=== PATIENT | male | born 1940 | race Caucasian/White ===

== ENCOUNTER 2017-01-22 16:33 | Emergency (ER) | payer MEDICARE, BC ==
[~2017-01-22] VITALS: Ht 185.4 cm; Wt 72.7 kg
[~2017-01-22 16:33] MED LIST: ATEN-51 PO; ESCI10TA48 PO; HYDR-3498 PO; LORA0.5T PO
[2017-01-22 17:00] VITALS: Ht 185.4 cm; Wt 72.7 kg
--- NOTE | 2017-01-22 17:19 | PSY ---
Date/Time of Note Date/Time of Note DATE: 01/22/17 TIME: 20:14 Psychiatric Subjective Eval Consent Pt consented to telemedicine: Yes Subjective Evaluation Patient location: emergency History of present illness 76 yo male with a ho anxiety and depression, brought in s/p overdose attempt on xanax this morning. He admits to depression and anxiety as well as what appears to be withdrawal sxs from either lorazepam or opioids (he describes as the "shakes" in the morning) which prompted him to try to kill himself given the discomfort he was in. Denies psychosis or reji. Does admit to trying to kill himself this morning. Past Psych Hx: pt was vague but appears to receive outpatient treatment for anxiety and depression Pt denies a substance hx PMhx: as in medical note, htn All: no known MSE: On MSE, old appearing male, substantial PMR (possibly consistentw ith age) , slow speech, seems in some distress, organized, no delusions, + si, no hi no avh Family History as above Medical history Problems Medical Problems: (1) Anxiety Status: Acute (2) Back pain Status: Acute (3) Intractable back pain Status: Acute (4) Sciatica Status: Acute Allergies: Coded Allergies: No Known Allergy (Unverified , 05/08/15) Social History Marital status: single Assessment and Plan Assessment/Diagnosis [place] I: MDD, severe Recommendation/Plan Medication Management Pt is a 76yo male with depression s/p overdose attempt to kill self. Occurring in context of what appears to be bzd and/or opioid withdrawal. -5150 inpatient admission -continue lexapro 10mg -continue current dose of ativan. HE states he is on 0.5mg in sariah morning only. In general, bzd are not recommended for elderly people due to risk for delirium , he should eventually be tapered off. Benzodiazepine w/d precautions with prn of ativan 0.5mg for SBP > 140, DBP > 90, or HR > 100 -also continue current dose of opioid medication. Pt should also eventually be tapered off of this 5150 Recommendation: Place SONY Lay Jan 22, 2017 17:19
[2017-01-22 17:49] LABS: ADD SCAN DIFF NO
[2017-01-22 17:52] LABS: BASOPHILS % 0.6 % (0.0-2.0); EOSINOPHILS # 0.2 10^3/ul (0.0-0.5); EOSINOPHILS % 5.1 % (0.0-7.0); HEMATOCRIT 38.8 % (42.0-52.0); HEMOGLOBIN 13.7 g/dl (14.0-18.0); LYMPHOCYTES # 1.4 10^3/ul (0.8-2.9); LYMPHOCYTES % 29.8 % (15.0-51.0); MEAN CORPUSCULAR HGB CONC 35.3 g/dl (32.0-37.0); MEAN CORPUSCULAR VOLUME 90.7 fl (82.0-101.0); MEAN PLATELET VOLUME 9.7 fl (7.4-10.4); MONOCYTE # 0.6 10^3/ul (0.3-0.9); MONOCYTES % 12.7 % (0.0-11.0); NEUTROPHIL # 2.4 10^3/ul (1.6-7.5); NEUTROPHILS % 51.4 % (39.0-77.0); PLATELET COUNT 263 10^3/UL (140-415); RED BLOOD COUNT 4.28 10^6/ul (4.70-6.10); RED CELL DISTRIBUTION WIDTH 12.2 % (11.5-14.5); WHITE BLOOD COUNT 4.7 10^3/ul (4.8-10.8)
[2017-01-22 17:58] LABS: ADD UMIC NO; URINE BILIRUBIN (Dip) NEGATIVE (NEGATIVE); URINE BLOOD (Dip) NEGATIVE (NEGATIVE); URINE COLOR LT. YELLOW (YELLOW); URINE GLUCOSE (Dip) NEGATIVE (NEGATIVE); URINE KETONES (Dip) NEGATIVE (NEGATIVE); URINE LEUKOCYTE ESTERASE (Dip) NEGATIVE (NEGATIVE); URINE NITRITE (Dip) NEGATIVE (NEGATIVE); URINE TOTAL PROTEIN (Dip) NEGATIVE (NEGATIVE); URINE UROBILINOGEN (Dip) 0.2 E.U./dL (0.1-1.0)
[2017-01-22 18:03] LABS: ALBUMIN 3.8 g/dl (3.3-4.9); CHLORIDE 102 mmol/L (97-110); SODIUM 138 mmol/L (135-144)
[2017-01-22 18:04] LABS: POTASSIUM 3.8 mmol/L (3.5-5.1)
[2017-01-22 18:06] LABS: ALANINE AMINOTRANSFERASE 26 IU/L (13-69); ALBUMIN/GLOBULIN RATIO 1.18; ALKALINE PHOSPHATASE 60 IU/L (42-121); ANION GAP 15 (8-16); ASPARTATE AMINO TRANSFERASE 22 IU/L (15-46); BILIRUBIN,INDIRECT 0.7 mg/dl (0-1.1); BILIRUBIN,TOTAL 0.7 mg/dl (0.2-1.3); BLOOD UREA NITROGEN 18 mg/dl (7-20); CALCIUM 9.7 mg/dl (8.4-10.2); CARBON DIOXIDE 25 mmol/L (21-31); CREATININE 1.57 mg/dl (0.61-1.24); GLUCOSE 92 mg/dl (70-220); SALICYLATE 1.5 mg/dl (5.0-30.0)
[2017-01-22 18:07] LABS: ACETAMINOPHEN < 10.0 ug/ml (10.0-30.0); ETHANOL < 10.0 mg/dl
[2017-01-22 18:10] LABS: BARBITURATES NEGATIVE (NEGATIVE); BENZODIAZEPINES POSITIVE (NEGATIVE)
[2017-01-22 18:11] LABS: CANNABINOIDS NEGATIVE (NEGATIVE); COCAINE NEGATIVE (NEGATIVE); OPIATES NEGATIVE (NEGATIVE)
--- NOTE | 2017-01-22 19:10 | ERA ---
ER Documentation Chief Complaint Date/Time DATE: 01/22/17 TIME: 19:07 Chief Complaint Suicide attempt this morning, took Xanax HPI Patient is a 76-year-old male with anxiety and hypertension who presents after an intentional overdose. The patient says that he took a handful of Xanax today at 6 AM. He said that he also took 2 tablets of Excedrin. This happened at 6 AM. He said that he is having suicidal thoughts and that this was a suicide attempt. He says "I wanted to end it all". He called his sister and told her what he did and the sister called 911 said that he will be transported to the hospital. He denies homicidal ideation. He feels like a burden to his family. ROS All systems reviewed and are negative except as per history of present illness. Medications Home Meds Active Scripts Hydrocodone Bit/Acetaminophen (Anexsia 5-325 Mg Tablet) 1 Tab Tablet, 1 TAB PO Q4H Y for mild pain, #30 TAB Prov:KYLIE COBURN 04/12/16 Reported Medications Atenolol* (Atenolol*) 25 Mg Tablet, 25 MG PO DAILY, #30 TAB 04/08/16 Escitalopram Oxalate* (Escitalopram Oxalate*) 10 Mg Tablet, 10 MG PO DAILY, #30 TAB 04/08/16 Lorazepam* (Lorazepam*) 0.5 Mg Tablet, 0.5 MG PO Q6, TAB 04/08/16 Allergies Allergies: Coded Allergies: No Known Allergy (Unverified , 05/08/15) PMhx/Soc History of Surgery: No Anesthesia Reaction: No Hx Neurological Disorder: No Hx Respiratory Disorders: No Hx Cardiac Disorders: Yes (HTN,HYPERLIPIDEMIA) Hx Psychiatric Problems: Yes (ANXIETY) Hx Miscellaneous Medical Probl: Yes (HTN, Anxiety) Hx Alcohol Use: Yes (OCCASSIONAL) Hx Substance Use: Yes (xanax) Hx Tobacco Use: No Smoking Status: Never smoker FmHx Family History: No diabetes Physical Exam Vitals Vital Signs Date Time Temp Pulse Resp B/P Pulse Ox O2 Delivery O2 Flow Rate FiO2 01/22/17 18:46 55 16 111/60 98 Room Air 01/22/17 17:00 76 16 136/78 100 Physical Exam Const: No acute distress Head: Atraumatic Eyes: Normal Conjunctiva ENT: Normal External Ears, Nose and Mouth. Neck: Full range of motion..~ No meningismus. Resp: Clear to auscultation bilaterally Cardio: Regular rate and rhythm, no murmurs Abd: Soft, non tender, non distended. Normal bowel sounds Skin: No petechiae or rashes Back: No midline or flank tenderness Ext: No cyanosis, or edema Neur: Awake and alert Psych: Depressed affect and positive suicide attempt Result Diagram: 01/22/17 1700 01/22/17 170 Results 24 hrs Laboratory Tests Test 01/22/17 17:00 White Blood Count 4.710^3/ul Red Blood Count 4.2810^6/ul Hemoglobin 13.7g/dl Hematocrit 38.8% Mean Corpuscular Volume 90.7fl Mean Corpuscular Hemoglobin 32.0pg Mean Corpuscular Hemoglobin Concent 35.3g/dl Red Cell Distribution Width 12.2% Platelet Count 40352^3/UL Mean Platelet Volume 9.7fl Neutrophils % 51.4% Lymphocytes % 29.8% Monocytes % 12.7% Eosinophils % 5.1% Basophils % 0.6% Nucleated Red Blood Cells % 0.0/100WBC Neutrophils # 2.410^3/ul Lymphocytes # 1.410^3/ul Monocytes # 0.610^3/ul Eosinophils # 0.210^3/ul Basophils # 0.010^3/ul Nucleated Red Blood Cells # 0.010^3/ul Urine Color LT. YELLOW Urine Clarity CLEAR Urine pH 5.0 Urine Specific [place] 1.020 Urine Ketones NEGATIVE Urine Nitrite NEGATIVE Urine Bilirubin NEGATIVE Urine Urobilinogen 0.2 E.U./dL Urine Leukocyte Esterase NEGATIVE Urine Hemoglobin NEGATIVE Urine Glucose NEGATIVE% Urine Total Protein NEGATIVE Sodium Level 138mmol/L Potassium Level 3.8mmol/L Chloride Level 102mmol/L Carbon Dioxide Level 25mmol/L Anion Gap 15 Blood Urea Nitrogen 18mg/dl Creatinine 1.57mg/dl Glucose Level 92mg/dl Calcium Level 9.7mg/dl Total Bilirubin 0.7mg/dl Direct Bilirubin 0.00mg/dl Indirect Bilirubin 0.7mg/dl Aspartate Amino Transf (AST/SGOT) 22IU/L Alanine Aminotransferase (ALT/SGPT) 26IU/L Alkaline Phosphatase 60IU/L Total Protein 7.0g/dl Albumin 3.8g/dl Globulin 3.20g/dl Albumin/Globulin Ratio 1.18 Salicylates Level 1.5mg/dl Urine Opiates Screen NEGATIVE Acetaminophen Level < 10.0ug/ml Urine Barbiturates NEGATIVE Urine Amphetamines Screen NEGATIVE Urine Benzodiazepines Screen POSITIVE Urine Cocaine Screen NEGATIVE Urine Cannabinoids NEGATIVE Ethyl Alcohol Level < 10.0mg/dl Current Medications Medications (Trade) Dose Ordered Sig/Sp Route PRN Reason Start Time Stop Time Status Last Admin Dose Admin Escitalopram Oxalate (Lexapro) 10 mg DAILY PO 01/22/17 19:00 Procedures/MDM EKG read by me: Rate/Rhythm: Sinus bradycardia rate of 55 Intervals: Normal Impression: Sinus bradycardia without ischemia Patient is a 76-year-old male who presents after a suicide attempt with Xanax and Excedrin. He is protecting his own airway and his salicylate level is low. At this point he is medically clear for psychiatric admission. He had a psychiatry evaluation who did recommend a 5150 hold. The patient will need transfer to a psychiatric facility and we are attempting to find placement at this time. The patient will be given Lexapro 10 mg daily for his depression as recommended by psychiatry. Departure Diagnosis: Primary Impression: Suicide threat or attempt Additional Impressions: Anemia Qualified Code: D64.9 - Anemia, unspecified type Overdose Qualified Code: T50.902A - Overdose, intentional self-harm, initial encounter Condition: CHUCK Cole MD Jan 22, 2017 19:10
[2017-01-22] MEDS: ESCITALOPRAM 10 MG TAB PO SCH (19:41)
[2017-01-23] MEDS: ESCITALOPRAM 10 MG TAB PO SCH (08:56)
[2017-01-23 15:01] VITALS: BP 135/78; PULSE 72; RESP 16; TEMP 98.4
== END 2017-01-23 15:03 ==
LOC: E/R 16:33
DX: T42.4X2A Poisoning by benzodiazepines, intentional self-harm, initial encounter (principal); D64.9 Anemia, unspecified; I10 Essential (primary) hypertension
CPT/HCPCS: 80053; 80306; 80307; 81003; 85025; 93005

== ENCOUNTER → 2017-07-26 | Outpatient (CLI) | payer MEDICARE, BC ==
--- NOTE | 2017-07-26 15:13 | RADRPT ---
PROCEDURE: US bilateral lower extremity arteries. CLINICAL INDICATION: Bilateral leg pain. Claudication that interferes significantly with the holly ent's lifestyle. TECHNIQUE: Multiple longitudinal and transverse images of the bilateral lower extremity arteries w ere obtained with egan scale, pulsed Doppler, and color Doppler imaging. COMPARISON: No prior studies are available for comparison. FINDINGS: Right SCHOOL MANAGER:93 cm/sec PSFA:83 cm/sec MSFA:88 cm/sec DSFA:90 cm/sec POP:55 cm/sec RESTORATIVE CARE TECHNICIAN:58 cm/sec DPA:48 cm/sec Left SCHOOL MANAGER:106 cm/sec PSFA:106 cm/sec MSFA:91 cm/sec DSFA:92 cm/sec POP:70 cm/sec RESTORATIVE CARE TECHNICIAN:56 cm/sec DPA:22 cm/sec The right ankle-brachial index is 1.3 and the left ankle-brachial index is 1.3. There is normal triphasic flow throughout bilaterally. Mild plaque is present in the arterial system bilaterally. There is no significant stenosis or occlusion. IMPRESSION: 1. Mild plaque formation without evidence for hemodynamically significant stenosis or occlusion. RPTAT: QQ .Willy Hernandez MD, MD Date Time Electronically viewed and signed by .Willy Hernandez MD, MD on 07/26/2017 15:13 .R/
== END | disposition home or self-care (01) ==
LOC: VAS 10:57
PROVIDERS: ATTEND Internal Medicine
DX: R20.0 Anesthesia of skin (principal); I73.9 Peripheral vascular disease, unspecified
CPT/HCPCS: 93922

== ENCOUNTER 2018-04-23 10:04 | Emergency (ER) | END 2018-04-23 11:09 | disposition home or self-care (01) ==

== ENCOUNTER 2018-11-09 10:14 | Inpatient (IN) | payer MEDICARE, BC ==
[~2018-11-09] VITALS: Ht 180.3 cm; Wt 78.0 kg
[~2018-11-09 10:14] MED LIST changes: +ESCI20TA PO; +LORA-441 PO; +TRA100 PO
[2018-11-09] MEDS ORDERED: SOD CHLORIDE 0.9% 1,000 ML IV STA ×2 (10:33→13:16)
[2018-11-09 10:49] VITALS: Ht 180.3 cm; Wt 78.0 kg
[2018-11-09] MEDS ORDERED: ACETAMINOPHEN 325 MG TAB PO ONE (11:30)
[2018-11-09] MEDS ORDERED: ACETAMINOPHEN 325 MG TAB PO PRN (13:30)
[2018-11-09] MEDS ORDERED: ONDANSETRON 4 MG INJ IV PRN ×2 (13:30→19:30)
--- NOTE | 2018-11-09 13:36 | ERD ---
ER Documentation Chief Complaint Chief Complaint GI bleeding couldnt get out of the bathroom blood in stool since 2am HPI This is a very pleasant 78-year-old male with a past medical history of anxiety and depression. The patient lives alone and is able to attend to his activities of daily living. He has a neighbor who checks on him on a regular basis. The neighbor went to his home this morning and noticed that the patient was on the floor. The patient was alert awake and oriented. He stated he had a brief transient loss of consciousness this morning when he got up to go to the bathroom around 2 AM. This was roughly 10 hours prior to arrival. The patient stated he does not know how long he was unconscious for. When he awoke he stated felt very lightheaded and dizzy and too weak to get up. EMS stated that the patient had a significant amount of melanotic stool surrounding the patient. He denies any hemoptysis or hematemesis. He denies a headache. He denies any suicidal homicidal thoughts or ideations. He has no chest pain or pressure. He has no shortness of breath at rest or exertion. ROS All systems reviewed and are negative except as per history of present illness. Medications Home Meds Active Scripts Trazodone Hcl* (Trazodone Hcl*) 100 Mg Tablet, 100 MG PO QHS, #10 TAB Prov:KEVIN BOSWELL PA-C 04/23/18 Hydrocodone Bit/Acetaminophen (Anexsia 5-325 Mg Tablet) 1 Tab Tablet, 1 TAB PO Q4H PRN for mild pain, #30 TAB Prov:KYLIE COBURN 04/12/16 Reported Medications Atenolol* (Atenolol*) 25 Mg Tablet, 25 MG PO DAILY, #30 TAB 04/08/16 Escitalopram Oxalate* (Escitalopram Oxalate*) 10 Mg Tablet, 10 MG PO DAILY, #30 TAB 04/08/16 Lorazepam* (Lorazepam*) 0.5 Mg Tablet, 0.5 MG PO Q6, TAB 04/08/16 Discontinued Scripts Atenolol* (Atenolol*) 25 Mg Tablet, 25 MG PO DAILY, #10 TAB Prov:KEVIN BOSWELL PA-C 04/23/18 Lorazepam* (Ativan*) 0.5 Mg Tablet, 0.5 MG PO QHS, #10 TAB Prov:PROUSESAKSHIKEVINZOILA Martinez PA-C 04/23/18 Escitalopram Oxalate* (Lexapro*) 20 Mg Tablet, 20 MG PO DAILY, #10 TAB Prov:KEVIN BOSWELLPrudencio CARMONA 04/23/18 Allergies Allergies: Coded Allergies: No Known Allergy (Unverified , 11/09/18) PMhx/Soc History of Surgery: No Anesthesia Reaction: No Hx Neurological Disorder: No Hx Respiratory Disorders: No Hx Cardiac Disorders: No Hx Psychiatric Problems: No Hx Miscellaneous Medical Probl: No Hx Alcohol Use: No Hx Substance Use: No Hx Tobacco Use: No Smoking Status: Never smoker Physical Exam Vitals Vital Signs Date Temp Pulse Resp B/P (MAP) Pulse Ox O2 O2 Flow FiO2 Time Delivery Rate 11/09/18 98.3 75 20 115/65 100 Room Air 12:00 (82) 11/09/18 98.3 82 20 116/70 100 Room Air 11:30 (85) 11/09/18 98.3 86 20 105/45 100 Room Air 11:00 (65) 11/09/18 Nasal 11:00 Cannula 11/09/18 97.7 88 20 126/68 100 10:49 (87) 11/09/18 98.3 87 20 121/70 98 Room Air 10:30 (87) Physical Exam Constitutional:Well-developed. Well-nourished. Disheveled HEENT:Normocephalic. Atraumatic.Pupils were equal round reactive to light. Dry mucous membranes.No tonsillar exudates. No nasal septal hematoma. No hemotymp michele. Neck: No nuchal rigidity. No lymphadenopathy. No posterior cervical spine tenderness or step-offs. Respiratory: Not using accessory muscles of respiration.Lungs were clear to auscultation bilaterally. No rhonchi. No rales. No wheezing. Cardiovascular: Regular rate regular rhythm.No murmurs. No rubs were appreciated.S1, S2 normal. Distal pulses are palpable 2+ bilaterally. GI: Abdomen was soft. Nontender. Non Distended. No pulsatile abdominal masses or bruits. No rebound. No guarding. Bowel sounds were present and normal. Rectal: No hemorrhoids. Fecal occult blood test positive. Melanotic stool present. Muscle skeletal: Full range of motion of both the upper and lower extremities bi laterally.Normal muscle tone.No assymetrical calf tenderness or swelling. Skin: No petechia, no purpura. No lesions on the palms or the soles of the feet. No maculopapular rash. Diffuse pallor NEURO: Patient was alert, awake, orientated x3.No facial droop. Gait observed and normal with no ataxia.Speech had regular rate and rhythm. No focal neurological deficits. Result Diagram: 11/09/18 1105 11/09/18 1105 Results 24 hrs Laboratory Tests Test 11/09/18 11:05 11/09/18 12:00 White Blood Count 20.0 10^3/ul Red Blood Count 2.68 10^6/ul Hemoglobin 8.4 g/dl Hematocrit 25.1 % Mean Corpuscular Volume 93.7 fl Mean Corpuscular Hemoglobin 31.3 pg Mean Corpuscular Hemoglobin Concent 33.5 g/dl Red Cell Distribution Width 13.0 % Platelet Count 283 10^3/UL Mean Platelet Volume 9.4 fl Immature Granulocytes % 1.000 % Neutrophils % 84.6 % Lymphocytes % 8.4 % Monocytes % 5.6 % Eosinophils % 0.1 % Basophils % 0.3 % Nucleated Red Blood Cells % 0.0 /100WBC Immature Granulocytes # 0.190 10^3/ul Neutrophils # 16.9 10^3/ul Lymphocytes # 1.7 10^3/ul Monocytes # 1.1 10^3/ul Eosinophils # 0.0 10^3/ul Basophils # 0.1 10^3/ul Nucleated Red Blood Cells # 0.0 10^3/ul Prothrombin Time 14.1 Sec Prothrombin Time Ratio 1.1 INR International Normalized Ratio 1.08 Activated Partial Thromboplast Time 27.5 Sec Sodium Level 139 mmol/L Potassium Level 4.8 mmol/L Chloride Level 108 mmol/L Carbon Dioxide Level 17 mmol/L Anion Gap 14 Blood Urea Nitrogen 87 mg/dl Creatinine 2.04 mg/dl Est Glomerular Filtrat Rate mL/min mL/min Glucose Level 127 mg/dl Calcium Level 9.6 mg/dl Total Bilirubin 0.2 mg/dl Direct Bilirubin 0.00 mg/dl Indirect Bilirubin 0.2 mg/dl Aspartate Amino Transf (AST/SGOT) 27 IU/L Alanine Aminotransferase (ALT/SGPT) 23 IU/L Alkaline Phosphatase 63 IU/L Creatine Kinase 88 IU/L Creatine Kinase Index 2.8 Creatinine Kinase MB (Mass) 2.49 ng/ml Troponin I < 0.012 ng/ml Total Protein 6.3 g/dl Albumin 3.6 g/dl Globulin 2.70 g/dl Albumin/Globulin Ratio 1.33 Amylase Level 109 U/L Lipase 178 U/L Urine Color YELLOW Urine Clarity CLEAR Urine pH 5.0 Urine Specific [place] 1.018 Urine Ketones TRACE mg/dL Urine Nitrite NEGATIVE mg/dL Urine Bilirubin NEGATIVE mg/dL Urine Urobilinogen NEGATIVE mg/dL Urine Leukocyte Esterase NEGATIVE [place]/ul Urine Hemoglobin NEGATIVE mg/dL Urine Glucose NEGATIVE mg/dL Urine Total Protein NEGATIVE mg/dl Current Medications Medications Dose Sig/Sp Start Time Status Last (Trade) Ordered Route PRN Stop Time Admin Dose Reason Admin Sodium 1,000 ml @ Q1H STAT 11/09/18 DC 11/09/18 Chloride 1,000 mls/hr IV 10:33 11:19 11/09/18 11:32 650 mg ONCE ONCE 11/09/18 DC 11/09/18 Acetaminophen PO 11:30 11:17 (Tylenol 11/09/18 11:31 Tab) Ondansetron 4 mg ER BRIDGE 11/09/18 HCl (Zofran PRN IV 13:30 Inj) NAUSEA/VOMITI 11/10/18 13:29 NG 650 mg ER BRIDGE 11/09/18 Acetaminophen PRN PO 13:30 (Tylenol .MILD PAIN 11/10/18 13:29 Tab) 1-3 OR TEMP Sodium 1,000 ml @ Q1H STAT 11/09/18 Chloride 1,000 mls/hr IV 13:16 11/09/18 14:15 Procedures/MDM The patient presented to the emergency department with a presentation of gastrointestinal bleeding with melanotic stools. My differential diagnosis included but was not limited to peptic ulcer disease, gastric or esophageal erosions, gastritis, esophageal varices, Wendy-Jones tear, tumor or arteriovenous malformations. The patient placed on chronic monitor continuous pulse oximetry and IV access was attempted by nursing to. The patient also had signs of severe clinical dehydration which was confirmed with prerenal azotemia as the patient also had acute renal failure. The patient received IV fluids. I also obtained a CK as the patient had been lying for an unknown amount of time on the floor. There is no evidence of rhabdomyolysis. I obtained a CT scan of the patient's head and there is no intracerebral hemorrhage mass-effect or midline shift. The patient was anemic but did not require blood transfusion however was typed and crossed. The patient's abdomen was benign with no peritoneal signs in my clinical suspicion for ischemic colitis or perforated diverticulitis was low. The patient will continue to be monitored in the hospital and will be admitted under the care of his primary care physician Dr. Berrios. As obtained a chest x-ray which showed no infiltrates pneumothorax or pleural effusions. The patient was given IV Protonix for suspected possible upper gastro-intestinal bleed. 12 Lead EKG tracing ordered and reviewed by myself showed: Normal sinus rhythm of 88 bpm and no arrhythmia. [place] interval normal. QRS duration normal. No ST segment elevation No ST segment depression. No changes consistent with acute ischemia. Departure Diagnosis: Primary Impression: Melanotic stools Additional Impressions: Acute prerenal azotemia Syncope, vasovagal Condition: Serious CAITLYN JOHNSON MD Nov 09, 2018 13:36
[2018-11-09 18:04] VITALS: PULSE 66
[2018-11-09] MEDS ORDERED: LORAZEPAM 2 MG INJ IV PRN (19:30)
[2018-11-09 19:39] VITALS: BP 149/67; PULSE 63; RESP 19
[2018-11-09] MEDS: DEXTROSE 5%-0.45% NACL 1,000 ML IV SCH (19:58)
[2018-11-09 20:00] VITALS: PULSE 70
[2018-11-09] MEDS: morphine 2 MG INJ IV PRN (21:52)
[2018-11-10] VITALS (24 sets, daily range): BP systolic 99–148; BP diastolic 50–70; PULSE 60–78; RESP 17–46
--- NOTE | 2018-11-10 03:16 | HP ---
DATE OF ADMISSION: 11/09/2018 CHIEF COMPLAINT: Melena, generalized weakness and syncope. HISTORY OF PRESENT ILLNESS: History has been obtained from medical record and discussion with the ER physician, Dr. Monserrat Renee. The patient is a 78-year-old gentleman well known to me from [facility] several admissions. The patient has hypertension, anxiety and depression with history of suicida l attempts and multiple admissions in the psych hospital as well as [facility] facilities. The patient lives alone and his neighbor usually checks on him. In fact a few weeks ago, neighbor found him altered after he attempted to commit suicide and subsequently, the patient was admitted in acute psych hospital and was subsequently cleared by psychiatrist and was sent to [facility] facility and subsequently went back to his home. The patient during recent visit in my office declined any padron icidal ideation. The patient was noted by neighbor to be on the floor of his house and the patient h ad melenotic stool. The patient tried to get up and got dizzy and passed out. As per EMS, the patie nt had a significant amount of melenic stool surrounding him. The patient did not have any abdominal pain. No reported fever or chills. No reported cough. No reported leg edema. The patient has chr onic lower back pain and intermittently has radicular pain, although he is not taking any nonsteroida l anti-inflammatory medication. The patient occasionally takes Ellis for that. The patient did not have any abdominal distention. No reported cough or sore throat. No reported chest congestion. No report of any focal weakness. The patient was seen in ER and was noted to have a hemoglobin of 8.4 d own from 13.7 back in 12/2016. The patient also was noted to have a BUN of 87, creatinine of 2. Tia k in 2017, the patient's BUN was 18, creatinine was 1.5. The patient's liver enzymes are normal. Co agulation profile revealed normal PT and INR. Due to syncope, the patient underwent CT scan of the h ead which revealed cerebral volume loss, no acute changes. The patient is being admitted for further evaluation and management. REVIEW OF SYSTEMS: Total of 12 systems reviewed, all pertinent positive and negative findings have b een described in HPI. Rest of review of systems were unremarkable. PAST MEDICAL HISTORY: As stated above. In addition, the patient has history of epidural shot recomm ended by Dr. Ontiveros when the patient used to see him for his chronic lower back pain and radiculopat hy. PAST SURGICAL HISTORY: The patient is status post right shoulder rotator cuff tear. ALLERGIES: NONE. SOCIAL HISTORY: No smoking or alcohol. The patient lives by himself. FAMILY HISTORY: Negative for coronary artery disease. PHYSICAL EXAMINATION: GENERAL: Revealed the patient to be awake, alert, fairly oriented. VITAL SIGNS: Upon arrival, temperature 98.3, pulse 86, respiration 20, blood pressure 105/45, O2 sat uration 100% on room air. HEENT: Atraumatic, normocephalic. Conjunctivae are pale. Lids are normal. Oropharynx is grossly n egative. NECK: Supple. No mass, no thyromegaly. CHEST: Fairly clear. No use of accessory muscles. CARDIOVASCULAR: Regular rate and rhythm. S1, S2 normal. No murmur. ABDOMEN: Soft, nondistended, nontender. Bowel sounds plus. EXTREMITIES: No leg edema. No clubbing, cyanosis. Pedal pulses are palpable. SKIN: Without acute rash or ulcer. NEUROLOGIC: The patient is awake, alert, fairly oriented with generalized weakness. LABORATORY DATA: WBC 20, hemoglobin 8.4, platelet 283. Sodium 139, potassium 4.8, BUN 87, creatinin e 2, glucose 127. Liver enzymes: AST 23, ALT 63, alkaline phosphatase 88, lipase of 178. IMPRESSION: 1. Upper gastrointestinal bleed. The patient will be kept n.p.o. and will be started on IV Protonix and IV fluid. He will have serial H and H and we will transfuse if the patient's hemoglobin drops b elow 8. We will have serial H and H on him. 2. Hypertension. Due to marginal blood pressure, we will hold off on his atenolol. 3. Suicidal ideation and history of several attempts. We will resume the Lexapro once he is able to take p.o. 4. Anxiety. Continue Ativan on p.r.n. basis once he is able to take p.o. 5. Acute on chronic kidney injury. We will continue to monitor. 6. Chronic lower back pain and radiculopathy. Continue symptomatic treatment. Since the patient is n.p.o., we will start him on IV morphine on p.r.n. basis. Meanwhile, GI consult will be requested f or further evaluation and management of upper gastrointestinal bleed. The patient remains awake and responsive. Denies any chest pain or shortness of breath or abdominal pain. Further recommendation will depend on patient's hospital course and recommendations from machine repair person. Dictated By: IVONE CRAIG/EDMUND Conf#: [id number] DID#: [id number]
[2018-11-10] MEDS: morphine 2 MG INJ IV PRN (04:25)
[2018-11-10] MEDS: DEXTROSE 5%-0.45% NACL 1,000 ML IV SCH ×3 (05:30→18:41)
[2018-11-10] MEDS: PANTOPRAZOLE 40 MG INJ IV SCH ×2 (06:23→18:40)
[2018-11-10] MEDS: ACETAMINOPHEN 1000MG/100ML IV 100 ML IVPB PRN ×2 (12:17→22:41)
--- NOTE | 2018-11-10 15:07 | PN ---
Date/Time of Note Date/Time of Note DATE: 11/10/18 TIME: 15:06 Assessment/Plan VTE Prophylaxis Risk score (from Nsg)>0 risk: 5 SCD applied (from Nsg): Yes Lines/Catheters IV Catheter Type (from Nrsg): Peripheral IV Urinary Cath still in place: Yes Reason Cath still needed: urinary retention Assessment/Plan Assessment/Plan 1. Upper gastrointestinal bleed. The patient will be kept n.p.o. and will be started on IV Protonix and IV fluid. He will have serial H and H and we will transfuse if the patient's hemoglobin drops below 8. We will have serial H and H on him. 2. Hypertension. Due to marginal blood pressure, we will hold off on his atenolol. 3. Suicidal ideation and history of several attempts. We will resume the Lexapro once he is able to take p.o. 4. Anxiety. Continue Ativan on p.r.n. basis once he is able to take p.o. 5. Acute on chronic kidney injury. We will continue to monitor. 6. Chronic lower back pain and radiculopathy. Continue symptomatic treatment. Since the patient is n.p.o., we will start him on IV morphine on p.r.n. basis. Meanwhile, GI consult will be requested for further evaluation and management of upper gastrointestinal bleed. The patient remains awake and responsive. Denies any chest pain or shortness of breath or abdominal pain. Further recommendation will depend on patient's hospital course and recommendations from gastroe nterologist. Result Diagram: 11/10/18 1333 11/10/18 1010 Results 24hrs Laboratory Tests Test 11/10/18 00:33 11/10/18 10:10 11/10/18 13:33 Hemoglobin 6.5 #*L 8.6 #L 8.5 L Hematocrit 19.4 #L 25.3 #L 25.0 L Sodium Level 142 Potassium Level 4.2 Chloride Level 113 H Carbon Dioxide Level 23 Anion Gap 6 # Blood Urea Nitrogen 52 #H Creatinine 1.47 H Est Glomerular Filtrat Rate mL/min Glucose Level 111 Calcium Level 9.3 Subjective 24 Hr Interval Summary Free Text/Dictation off floor - gone for EGD Exam/Review of Systems Exam Vitals Vital Signs Date Temp Pulse Resp B/P (MAP) Pulse Ox O2 O2 Flow FiO2 Time Delivery Rate 11/10/18 62 13:05 11/10/18 98.6 18 121/60 97 11:20 (80) 11/09/18 Room Air 13:30 Intake and Output 11/09/18 11/09/18 11/10/18 1515:00 23:00 07:00 IntakeIntake Total 1050 ml OutputOutput Total 4000 ml BalanceBalance -2950 ml Results Results 24hrs Laboratory Tests Test 11/10/18 00:33 11/10/18 10:10 11/10/18 13:33 Hemoglobin 6.5 #*L 8.6 #L 8.5 L Hematocrit 19.4 #L 25.3 #L 25.0 L Sodium Level 142 Potassium Level 4.2 Chloride Level 113 H Carbon Dioxide Level 23 Anion Gap 6 # Blood Urea Nitrogen 52 #H Creatinine 1.47 H Est Glomerular Filtrat Rate mL/min Glucose Level 111 Calcium Level 9.3 Medications Medication Current Medications Morphine Sulfate (morphine) 2 mg Q4H PRN IV SEVERE PAIN LEVEL 7-10 Last administered on 11/10/18at 04:25; Admin Dose 2 MG; Start 11/09/18 at 19:30 Ondansetron HCl (Zofran Inj) 4 mg Q6H PRN IV NAUSEA AND/OR VOMITING; Start 11/09/18 at 19:30 Lorazepam (Ativan) 0.5 mg Q6H PRN IV AGITATION Last administered on 11/09/18at 23:14; Admin Dose 0.5 MG; Start 11/09/18 at 19:30 Pantoprazole (Protonix Iv) 40 mg BID@06,18 IV Last administered on 11/10/18at 06:23; Admin Dose 40 MG; Start 11/10/18 at 06:00 Dextrose/Sodium Chloride 1,000 ml @ 100 mls/hr Q10H IV Last administered on 11/10/18at 11:08; Admin Dose 100 MLS/HR; Start 11/09/18 at 19:30 Acetaminophen 100 ml @ 400 mls/hr Q6H PRN IVPB PAIN Last administered on 11/10/18at 12:17; Admin Dose 400 MLS/HR; Start 11/10/18 at 11:30; Stop 11/11/18 at 11:29 ERLIN MILLER Nov 10, 2018 15:07
--- NOTE | 2018-11-10 15:49 | PREAC ---
Date/Time of Note Date/Time of Note DATE: 11/10/18 TIME: 15:44 Anesthesia Eval and Record Evaluation Time Pre-Procedure Interview DATE: 11/10/18 TIME: 15:44 Age 78 Sex male NPO: 8 hrs Preoperative diagnosis GI bleed Planned procedure Upper endoscopy Past Medical History Past Medical History: Includes Cardio: HTN, [place] Musculoskeletal: Osteoarthritis, Other (Chronic back pain and radiuclopathy s/p JAROD) Renal: CHEYANNE, CKD Heme: Anemia Psych: Depression, Anxiety Surgery & Anesthesia Issues No known issue Meds Anticoagulation: No Beta Tete within 24 hr: No Reason Beta Tete not given: Pt. not on B-Tete Active Scripts Trazodone Hcl* (Trazodone Hcl*) 100 Mg Tablet, 100 MG PO QHS, #10 TAB Prov:KEVIN BOSWELL PA-C 04/23/18 Hydrocodone Bit/Acetaminophen (Anexsia 5-325 Mg Tablet) 1 Tab Tablet, 1 TAB PO Q4H PRN for mild pain, #30 TAB Prov:KYLIE COBURN 04/12/16 Reported Medications Atenolol* (Atenolol*) 25 Mg Tablet, 25 MG PO DAILY, #30 TAB 04/08/16 Escitalopram Oxalate* (Escitalopram Oxalate*) 10 Mg Tablet, 10 MG PO DAILY, #30 TAB 04/08/16 Lorazepam* (Lorazepam*) 0.5 Mg Tablet, 0.5 MG PO Q6, TAB 04/08/16 Discontinued Scripts Atenolol* (Atenolol*) 25 Mg Tablet, 25 MG PO DAILY, #10 TAB Prov:KEVIN BOSWELL PA-C 04/23/18 Lorazepam* (Ativan*) 0.5 Mg Tablet, 0.5 MG PO QHS, #10 TAB Prov:KEVIN BOSWELL PA-C 04/23/18 Escitalopram Oxalate* (Lexapro*) 20 Mg Tablet, 20 MG PO DAILY, #10 TAB Prov:KEVIN BOSWELL PA-C 04/23/18 Current Medications Morphine Sulfate (morphine) 2 mg Q4H PRN IV SEVERE PAIN LEVEL 7-10 Last administered on 11/10/18at 04:25; Admin Dose 2 MG; Start 11/09/18 at 19:30 Ondansetron HCl (Zofran Inj) 4 mg Q6H PRN IV NAUSEA AND/OR VOMITING; Start 11/09/18 at 19:30 Lorazepam (Ativan) 0.5 mg Q6H PRN IV AGITATION Last administered on 11/09/18at 23:14; Admin Dose 0.5 MG; Start 11/09/18 at 19:30 Pantoprazole (Protonix Iv) 40 mg BID@06,18 IV Last administered on 11/10/18at 06:23; Admin Dose 40 MG; Start 11/10/18 at 06:00 Dextrose/Sodium Chloride 1,000 ml @ 100 mls/hr Q10H IV Last administered on 11/10/18at 11:08; Admin Dose 100 MLS/HR; Start 11/09/18 at 19:30 Acetaminophen 100 ml @ 400 mls/hr Q6H PRN IVPB PAIN Last administered on 11/10/18at 12:17; Admin Dose 400 MLS/HR; Start 11/10/18 at 11:30; Stop 11/11/18 at 11:29 Meds reviewed: Yes Allergies Coded Allergies: No Known Allergy (Unverified , 11/09/18) Allergies Reviewed: Yes Labs/Studies Labs Reviewed: Reviewed by anesthesiologist Result Diagram: 11/10/18 1333 11/10/18 1010 Laboratory Tests 11/10/18 10:10 11/10/18 13:33 test: N/A Pre-procedure Exam Last vitals Vital Signs Date Temp Pulse Resp B/P (MAP) Pulse Ox O2 O2 Flow FiO2 Time Delivery Rate 11/10/18 62 13:05 11/10/18 98.6 18 121/60 97 11:20 (80) 11/09/18 Room Air 13:30 Airway: Adequate mouth opening, Adequate thyromental dist Mallampati: Mallampati II Teeth: Normal Lung: Normal Heart: Normal ASA Physical Status ASA physical status: 2 Emergency: None Planned Anesthetic General/MAC: MAC Pre-operative Attestations Prior to commencing anesthesia and surgery, the patient was re-evaluated, there was verification of: *The patient's identity *The results of appropriate recent lab work and preoperative vital signs *The above evaluation not changing prior to induction *Anesthetic plan, risk benefits, alternative and complications discussed with patient/family; questions answered; patient/family understands, accepts and wishes to proceed. MATEUS OLVERA MD Nov 10, 2018 15:49
[2018-11-10] MEDS ORDERED: PROPOFOL 20 ML ONE (15:50)
[2018-11-10] MEDS ORDERED: FENTAnyl 50 MCG/ML VIAL ONE (15:50)
--- NOTE | 2018-11-10 16:48 | PAC ---
Date/Time of Note Date/Time of Note DATE: 11/10/18 TIME: 16:48 Post-Anesthesia Notes Post-Anesthesia Note Last documented vital signs Vital Signs Date Temp Pulse Resp B/P (MAP) Pulse Ox O2 O2 Flow FiO2 Time Delivery Rate 11/10/18 70 16:08 11/10/18 98.6 18 121/60 97 11:20 (80) 11/09/18 Room Air 13:30 Activity: WNL Respiratory function: WNL Cardiovascular function: WNL Mental status: Baseline Pain reasonably controlled: Yes Hydration appropriate: Yes Nausea/Vomiting absent: Yes MATEUS OLVERA MD Nov 10, 2018 16:48
--- NOTE | 2018-11-10 17:29 | CONS ---
DATE OF ADMISSION: 11/09/2018 DATE OF CONSULTATION: Dear Dr. Berrios: Thank you for asking me to see Mr. Stapleton in GI consultation. As you know, this is a 78-year-old white gentleman who was admitted to the hospital because of a hist ory that he passed out and upon admission, he was found to have a hemoglobin around 8.4 and then subs equently 6.5 grams, and he got subsequently transfused. The patient lives alone. Apparently, he fel l down because of dizziness. He was found by his neighbor and then he was brought to the hospital. The patient has been passing melenic stool for the past one week. No history of nausea, no history o f vomiting. The patient apparently had multiple suicidal ideations. He also attempted to commit kenn cide, but he never succeeded obviously, indicating he does have history of psychological problems. The patient has some history of dizziness. REVIEW OF SYSTEM: Positive for depression. PAST SURGICAL HISTORY: Right shoulder surgery. MEDICATIONS PRIOR TO THE ADMISSION: 1. Atenolol. 2. Escitalopram oxalate. 3. Hydrocodone. 4. Acetaminophen. 5. Lorazepam. 6. Trazodone. PHYSICAL EXAMINATION: GENERAL: The patient is a 78-year-old white gentleman who at this time is alert. He is afebrile. CARDIOVASCULAR: Normal heart sounds. RESPIRATORY: Normal breath sounds. ABDOMEN: Shows soft abdomen with no palpable masses, no tenderness, no distention. VITAL SIGNS: Blood pressure 121/60. Pulse is 98.6. LABORATORY WORKUP: Hemoglobin was 8.4, 6.5, and then today 8.5. Potassium 4.2, bilirubin 0.2, AST i s 27, ALT 23, alkaline phosphatase 63, albumin 3.6, lipase 178. CLINICAL IMPRESSION: 1. The patient is presenting with history of dizziness. He was found to have a very severe iron-def iciency type of anemia, rule out gastrointestinal bleeding, either due to peptic ulcer disease or gas trointestinal malignancy. 2. Arteriovenous malformation of the gastrointestinal tract. 3. History of dizziness. 4. History of psychological mental illness. PLAN: Recommend continue Protonix. Recommend upper endoscopy and if necessary, lower endoscopy will be considered. Once again, Dr. Berrios, thank you for this consultation. Dictated By: DONNIE REECE/NTS Conf#: [id number] DID#: [id number] CC: IVONE BERRIOS MD;*[facility]*
[2018-11-10] MEDS: traZODone 100 MG TAB PO SCH (20:47)
[2018-11-11] VITALS (12 sets, daily range): BP systolic 120–142; BP diastolic 54–71; PULSE 65–106; RESP 17–18
[2018-11-11] MEDS: morphine 2 MG INJ IV PRN (06:12)
[2018-11-11] MEDS: PANTOPRAZOLE 40 MG INJ IV SCH ×2 (06:16→17:23)
[2018-11-11] MEDS: DEXTROSE 5%-0.45% NACL 1,000 ML IV SCH ×2 (07:32→11:10)
[2018-11-11] MEDS: ATENOLOL 25 MG TAB PO SCH (08:16)
[2018-11-11] MEDS: ESCITALOPRAM 10 MG TAB PO SCH (08:16)
--- NOTE | 2018-11-11 11:20 | PN ---
Date/Time of Note Date/Time of Note DATE: 11/11/18 TIME: 11:19 Assessment/Plan VTE Prophylaxis Risk score (from Nsg)>0 risk: 6 SCD applied (from Nsg): Yes Lines/Catheters IV Catheter Type (from Nrsg): Peripheral IV Urinary Cath still in place: Yes Reason Cath still needed: urinary retention Assessment/Plan Assessment/Plan - acute neck pain- C-Spine xray- fu 1. Upper gastrointestinal bleed. The patient will be kept n.p.o. and will be started on IV Protonix and IV fluid. He will have serial H and H and we will transfuse if the patient's hemoglobin drops below 8. We will have serial H and H on him. 2. Hypertension. Due to marginal blood pressure, we will hold off on his aten olol. 3. Suicidal ideation and history of several attempts. We will resume the Lexapro once he is able to take p.o. 4. Anxiety. Continue Ativan on p.r.n. basis once he is able to take p.o. 5. Acute on chronic kidney injury. We will continue to monitor. 6. Chronic lower back pain and radiculopathy. Continue symptomatic treatment. Since the patient is n.p.o., we will start him on IV morphine on p.r.n. basis. Meanwhile, GI consult will be requested for further evaluation and management of upper gastrointestinal bleed. The patient remains awake and responsive. Denies any chest pain or shortness of breath or abdominal pain. Further recommendation will depend on patient's hospital course and recommendations from plant tour guide. Result Diagram: 11/11/18 0514 11/11/18 0514 Results 24hrs Laboratory Tests Test 11/10/18 13:33 11/11/18 05:14 Hemoglobin 8.5 L 8.5 L Hematocrit 25.0 L 25.8 L White Blood Count 7.8 # Red Blood Count 2.77 L Mean Corpuscular Volume 93.1 Mean Corpuscular Hemoglobin 30.7 Mean Corpuscular Hemoglobin Concent 32.9 Red Cell Distribution Width 14.5 Platelet Count 190 # Mean Platelet Volume 9.4 Immature Granulocytes % 0.500 H Neutrophils % 71.5 Lymphocytes % 14.4 L Monocytes % 9.9 Eosinophils % 3.3 Basophils % 0.4 Nucleated Red Blood Cells % 0.0 Immature Granulocytes # 0.040 H Neutrophils # 5.6 Lymphocytes # 1.1 Monocytes # 0.8 Eosinophils # 0.3 Basophils # 0.0 Nucleated Red Blood Cells # 0.0 Sodium Level 141 Potassium Level 4.3 Chloride Level 107 Carbon Dioxide Level 24 Anion Gap 10 Blood Urea Nitrogen 35 #H Creatinine 1.29 H Est Glomerular Filtrat Rate mL/min Glucose Level 96 Calcium Level 8.6 Total Bilirubin 0.5 Direct Bilirubin 0.00 Indirect Bilirubin 0.5 Aspartate Amino Transf (AST/SGOT) 26 Alanine Aminotransferase (ALT/SGPT) 23 Alkaline Phosphatase 51 Total Protein 5.7 L Albumin 2.9 L Globulin 2.80 Albumin/Globulin Ratio 1.03 Subjective 24 Hr Interval Summary Free Text/Dictation - acute neck pain- C-Spine xray- fu Exam/Review of Systems Exam Vitals Vital Signs Date Temp Pulse Resp B/P (MAP) Pulse Ox O2 O2 Flow FiO2 Time Delivery Rate 11/11/18 99.9 80 18 142/63 99 08:14 (89) 11/10/18 Room Air 17:47 11/10/18 6.0 16:42 Intake and Output 11/10/18 11/10/18 11/11/18 1414:59 22:59 06:59 IntakeIntake Total 100 ml 360 ml 800 ml OutputOutput Total 1300 ml 1100 ml BalanceBalance 100 ml -940 ml -300 ml Results Results 24hrs Laboratory Tests Test 11/10/18 13:33 11/11/18 05:14 Hemoglobin 8.5 L 8.5 L Hematocrit 25.0 L 25.8 L White Blood Count 7.8 # Red Blood Count 2.77 L Mean Corpuscular Volume 93.1 Mean Corpuscular Hemoglobin 30.7 Mean Corpuscular Hemoglobin Concent 32.9 Red Cell Distribution Width 14.5 Platelet Count 190 # Mean Platelet Volume 9.4 Immature Granulocytes % 0.500 H Neutrophils % 71.5 Lymphocytes % 14.4 L Monocytes % 9.9 Eosinophils % 3.3 Basophils % 0.4 Nucleated Red Blood Cells % 0.0 Immature Granulocytes # 0.040 H Neutrophils # 5.6 Lymphocytes # 1.1 Monocytes # 0.8 Eosinophils # 0.3 Basophils # 0.0 Nucleated Red Blood Cells # 0.0 Sodium Level 141 Potassium Level 4.3 Chloride Level 107 Carbon Dioxide Level 24 Anion Gap 10 Blood Urea Nitrogen 35 #H Creatinine 1.29 H Est Glomerular Filtrat Rate mL/min Glucose Level 96 Calcium Level 8.6 Total Bilirubin 0.5 Direct Bilirubin 0.00 Indirect Bilirubin 0.5 Aspartate Amino Transf (AST/SGOT) 26 Alanine Aminotransferase (ALT/SGPT) 23 Alkaline Phosphatase 51 Total Protein 5.7 L Albumin 2.9 L Globulin 2.80 Albumin/Globulin Ratio 1.03 Medications Medication Current Medications Morphine Sulfate (morphine) 2 mg Q4H PRN IV SEVERE PAIN LEVEL 7-10 Last administered on 11/11/18 06:12; Admin Dose 2 MG; Start 11/09/18 at 19:30 Ondansetron HCl (Zofran Inj) 4 mg Q6H PRN IV NAUSEA AND/OR VOMITING; Start 11/09/18 at 19:30 Lorazepam (Ativan) 0.5 mg Q6H PRN IV AGITATION Last administered on 11/09/18 23:14; Admin Dose 0.5 MG; Start 11/09/18 at 19:30 Pantoprazole (Protonix Iv) 40 mg BID@06,18 IV Last administered on 11/11/18 06:16; Admin Dose 40 MG; Start 11/10/18 at 06:00 Acetaminophen 100 ml @ 400 mls/hr Q6H PRN IVPB PAIN Last administered on 11/10/18 22:41; Admin Dose 400 MLS/HR; Start 11/10/18 at 11:30; Stop 11/11/18 at 11:29 Dextrose/Sodium Chloride 1,000 ml @ 60 mls/hr [id number] IV Last administered on 11/11/18 07:32; Admin Dose 60 MLS/HR; Start 11/10/18 at 18:30 Escitalopram Oxalate (Lexapro) 10 mg DAILY PO Last administered on 11/11/18 08:16; Admin Dose 10 MG; Start 11/11/18 at 09:00 Trazodone HCl (Desyrel) 100 mg HS PO Last administered on 11/10/18 20:47; Admin Dose 100 MG; Start 11/10/18 at 21:00 Atenolol (Tenormin) 25 mg DAILY PO Last administered on 11/11/18 08:16; Admin Dose 25 MG; Start 11/11/18 at 09:00 ERLIN MILLER Nov 11, 2018 11:20
[2018-11-11] MEDS ORDERED: POLYETHYLENE GLYCOL 3350 119 GM POWDER PO ONE (15:00)
[2018-11-11] MEDS: traZODone 100 MG TAB PO SCH (20:13)
[2018-11-12] VITALS (17 sets, daily range): BP systolic 100–133; BP diastolic 48–70; PULSE 54–86; RESP 16–22
[2018-11-12] MEDS: DEXTROSE 5%-0.45% NACL 1,000 ML IV SCH ×2 (02:54→20:29)
[2018-11-12] MEDS ORDERED: VITAMIN A & D 5 GM OINT PACKET TOP ONE (05:12)
[2018-11-12] MEDS: PANTOPRAZOLE 40 MG INJ IV SCH ×2 (05:16→18:22)
--- NOTE | 2018-11-12 06:54 | PN ---
DATE: 11/11/2018 SUBJECTIVE: The patient is a 78-year-old white gentleman who came in with history of GI bleeding. U pper endoscopy showed a duodenal ulcer. He has got history of mental illness. PHYSICAL EXAMINATION: GENERAL: At this time, the patient is alert, well built. VITAL SIGNS: Afebrile, blood pressure 120/54. CARDIOVASCULAR: Normal heart sounds. RESPIRATORY: Normal breath sounds. ABDOMEN: Showed a soft abdomen with no palpable masses, no tenderness, no distention. CLINICAL IMPRESSION: The patient is presenting with gastrointestinal bleeding. Upper endoscopy show ed a duodenal ulcer. At this time, I would recommend that we need to do a colonoscopy to rule out co lorectal neoplasm and the patient agreed. Dictated By: DONNIE QUEEN MD NC/NTS Conf#: [id number] DID#: [id number] CC: IVONE LEON MD;*[facility]*
[2018-11-12] MEDS ORDERED: EPHEDrine SULFATE 50 MG/5 ML SYG ONE (07:00)
[2018-11-12] MEDS ORDERED: PROPOFOL 200 MG INJ ONE (07:00)
[2018-11-12] MEDS: ESCITALOPRAM 10 MG TAB PO SCH (09:19)
[2018-11-12] MEDS: ATENOLOL 25 MG TAB PO SCH (09:20)
--- NOTE | 2018-11-12 09:53 | PREAC ---
Date/Time of Note Date/Time of Note DATE: 11/12/18 TIME: 09:51 Anesthesia Eval and Record Evaluation Time Pre-Procedure Interview DATE: 11/12/18 TIME: 09:51 Age 78 Sex male NPO: 8 hrs Preoperative diagnosis GI BLEED Planned procedure COLONOSCOPY Past Medical History Past Medical History: Includes Cardio: HTN, Dyslipidemia Renal: CHEYANNE, CKD Heme: Anemia Psych: Depression, Other (HX SUICIDAL IDEATIONS WITH ATTEMPTS) Surgery & Anesthesia Issues No known issue Meds Anticoagulation: No Beta Tete within 24 hr: Yes Active Scripts Trazodone Hcl* (Trazodone Hcl*) 100 Mg Tablet, 100 MG PO QHS, #10 TAB Prov:KEVIN BOSWELL PA-C 04/23/18 Hydrocodone Bit/Acetaminophen (Anexsia 5-325 Mg Tablet) 1 Tab Tablet, 1 TAB PO Q4H PRN for mild pain, #30 TAB Prov:KYLIE COBURN 04/12/16 Reported Medications Atenolol* (Atenolol*) 25 Mg Tablet, 25 MG PO DAILY, #30 TAB 04/08/16 Escitalopram Oxalate* (Escitalopram Oxalate*) 10 Mg Tablet, 10 MG PO DAILY, #30 TAB 04/08/16 Lorazepam* (Lorazepam*) 0.5 Mg Tablet, 0.5 MG PO Q6, TAB 04/08/16 Discontinued Scripts Atenolol* (Atenolol*) 25 Mg Tablet, 25 MG PO DAILY, #10 TAB Prov:KEVIN BOSWELL PA-C 04/23/18 Lorazepam* (Ativan*) 0.5 Mg Tablet, 0.5 MG PO QHS, #10 TAB Prov:KEVIN BOSWELL PA-C 04/23/18 Escitalopram Oxalate* (Lexapro*) 20 Mg Tablet, 20 MG PO DAILY, #10 TAB Prov:KEVIN BOSWELL PA-C 04/23/18 Current Medications Morphine Sulfate (morphine) 2 mg Q4H PRN IV SEVERE PAIN LEVEL 7-10 Last administered on 11/11/18at 06:12; Admin Dose 2 MG; Start 11/09/18 at 19:30 Ondansetron HCl (Zofran Inj) 4 mg Q6H PRN IV NAUSEA AND/OR VOMITING; Start 11/09/18 at 19:30 Lorazepam (Ativan) 0.5 mg Q6H PRN IV AGITATION Last administered on 11/09/18at 23:14; Admin Dose 0.5 MG; Start 11/09/18 at 19:30 Pantoprazole (Protonix Iv) 40 mg BID@06,18 IV Last administered on 11/12/18at 05:16; Admin Dose 40 MG; Start 11/10/18 at 06:00 Dextrose/Sodium Chloride 1,000 ml @ 60 mls/hr [id number] IV Last administered on 11/12/18at 02:54; Admin Dose 60 MLS/HR; Start 11/10/18 at 18:30 Escitalopram Oxalate (Lexapro) 10 mg DAILY PO Last administered on 11/12/18at 09:19; Admin Dose 10 MG; Start 11/11/18 at 09:00 Trazodone HCl (Desyrel) 100 mg HS PO Last administered on 11/11/18at 20:13; Admin Dose 100 MG; Start 11/10/18 at 21:00 Atenolol (Tenormin) 25 mg DAILY PO Last administered on 11/12/18at 09:20; Admin Dose 25 MG; Start 11/11/18 at 09:00 Meds reviewed: Yes Allergies Coded Allergies: No Known Allergy (Unverified , 11/09/18) Allergies Reviewed: Yes Labs/Studies Labs Reviewed: Reviewed by anesthesiologist Result Diagram: 11/11/18 0514 11/11/18 1433 Laboratory Tests 11/11/18 14:33 test: N/A Studies: ECG Pre-procedure Exam Last vitals Vital Signs Date Temp Pulse Resp B/P (MAP) Pulse Ox O2 O2 Flow FiO2 Time Delivery Rate 11/12/18 76 08:01 11/12/18 99.0 20 133/61 96 Room Air 07:34 (85) 11/10/18 6.0 16:42 Airway: Adequate thyromental dist Mallampati: Mallampati II Teeth: Normal Lung: Normal Heart: Normal ASA Physical Status ASA physical status: 3 Emergency: None Planned Anesthetic General/MAC: MAC, TIVA Planned Pain Management Parenteral pain med Pre-operative Attestations Prior to commencing anesthesia and surgery, the patient was re-evaluated, there was verification of: *The patient's identity *The results of appropriate recent lab work and preoperative vital signs *The above evaluation not changing prior to induction *Anesthetic plan, risk benefits, alternative and complications discussed with patient/family; questions answered; patient/family understands, accepts and wishes to proceed. MIKEL BORJA Nov 12, 2018 09:53
[2018-11-12] MEDS ORDERED: FENTAnyl 50 MCG/ML VIAL IV PRN ×3 (10:00)
[2018-11-12] MEDS ORDERED: ONDANSETRON 4 MG INJ IV PRN (10:00)
[2018-11-12] MEDS ORDERED: LIDOCAINE 2% (SDV) 5 ML INJ ONE (10:25)
[2018-11-12] MEDS ORDERED: PROPOFOL 40 ML ONE (10:25)
--- NOTE | 2018-11-12 12:22 | PAC ---
Date/Time of Note Date/Time of Note DATE: 11/12/18 TIME: 12:22 Post-Anesthesia Notes Post-Anesthesia Note Last documented vital signs Vital Signs Date Temp Pulse Resp B/P (MAP) Pulse Ox O2 O2 Flow FiO2 Time Delivery Rate 11/12/18 70 12:01 11/12/18 19 111/60 98 Room Air 12:00 (77) 11/12/18 98.3 11:37 11/12/18 10 11:19 Activity: WNL Respiratory function: WNL Cardiovascular function: WNL Mental status: Baseline Pain reasonably controlled: Yes Hydration appropriate: Yes Nausea/Vomiting absent: Yes MIKEL BORJA Nov 12, 2018 12:22
--- NOTE | 2018-11-12 18:24 | PN ---
Date/Time of Note Date/Time of Note DATE: 11/12/18 TIME: 18:22 Assessment/Plan VTE Prophylaxis Risk score (from Ns)>0 risk: 6 SCD applied (from Ns): Yes Pharmacological prophylaxis: NA/contraindicated Pharm contraindication: bleeding Lines/Catheters [facility] Peripheral IV Urinary Cath still in place: Yes Reason Cath still needed: urinary retention Assessment/Plan Hospital Course Patient is status post a colonoscopy today awake alert looks comfortable patient had an episode of bradycardia with second-degree block when he came after the procedure however the patient is currently in sinus rhythm. Continue telemetry monitoring. Dr. Connors is asked to see patient in cardiology consultation. Assessment/Plan -Episode of bradycardia with second-degree block after colonoscopy. Currently in sinus rhythm. Dr. Connors is asked to see patient in cardiology consultation -Upper gastrointestinal bleed. Status post EGD by Dr. Frost with notion of duodenal ulcer. Continue Protonix. -Anemia of acute blood loss, status post blood transfusion. Continue to monitor hemoglobin and hematocrit. -Acute kidney injury on chronic kidney disease, continue to monitor BUN and creatinine.. -Hypertension. Continue hydralazine as needed. -Chronic low back pain with radiculopathy. -Suicidal ideation and history of several attempts. Continue Lexapro. -Anxiety. Continue Ativan on p.r.n. for agitation. Further recommendations based on clinical course. Plan of care discussed with Dr. Berrios. Result Diagram: 11/11/18 0514 11/11/18 1433 Results 24hrs Laboratory Tests Test 11/12/18 08:10 Lab Scanned Report BLOOD TRANSFUSION Exam/Review of Systems Exam Vitals Vital Signs Date Temp Pulse Resp B/P (MAP) Pulse Ox O2 O2 Flow FiO2 Time Delivery Rate 11/12/18 58 16:01 11/12/18 98.6 20 112/56 95 Room Air 15:19 (74) 11/12/18 10 11:19 Intake and Output 11/11/18 11/11/18 11/12/18 1515:00 23:00 07:00 IntakeIntake Total 1000 ml 900 ml 1980 ml OutputOutput Total 1800 ml 2900 ml BalanceBalance 1000 ml -900 ml -920 ml Constitutional: alert, oriented Neck: supple Respiratory: clear to auscultation Cardiovascular: regular rate and rhythm Gastrointestinal: soft, non-tender Extremities: normal pulses Results Results 24hrs Laboratory Tests Test 11/12/18 08:10 Lab Scanned Report BLOOD TRANSFUSION Medications Medication Current Medications Morphine Sulfate (morphine) 2 mg Q4H PRN IV SEVERE PAIN LEVEL 7-10 Last administered on 11/11/18at 06:12; Admin Dose 2 MG; Start 11/09/18 at 19:30 Ondansetron HCl (Zofran Inj) 4 mg Q6H PRN IV NAUSEA AND/OR VOMITING; Start 11/09/18 at 19:30 Lorazepam (Ativan) 0.5 mg Q6H PRN IV AGITATION Last administered on 11/09/18at 23:14; Admin Dose 0.5 MG; Start 11/09/18 at 19:30 Pantoprazole (Protonix Iv) 40 mg BID@06,18 IV Last administered on 11/12/18at 0 5:16; Admin Dose 40 MG; Start 11/10/18 at 06:00 Dextrose/Sodium Chloride 1,000 ml @ 60 mls/hr [id number] IV Last administered on 11/12/18at 02:54; Admin Dose 60 MLS/HR; Start 11/10/18 at 18:30 Escitalopram Oxalate (Lexapro) 10 mg DAILY PO Last administered on 11/12/18at 09:19; Admin Dose 10 MG; Start 11/11/18 at 09:00 Trazodone HCl (Desyrel) 100 mg HS PO Last administered on 11/11/18at 20:13; Admin Dose 100 MG; Start 11/10/18 at 21:00 Hydralazine HCl (Apresoline) 10 mg Q4H PRN IV SBP>170; Start 11/12/18 at 18:30 KYLIE COBURN Nov 12, 2018 18:24
[2018-11-12] MEDS ORDERED: hydrALAzine 20 MG INJ IV PRN (18:30)
[2018-11-12] MEDS: traZODone 100 MG TAB PO SCH (20:22)
--- NOTE | 2018-11-12 22:46 | CONS ---
DATE OF ADMISSION: 11/09/2018 DATE OF CONSULTATION: 11/12/2018 REASON FOR CONSULTATION: Heart block. REQUESTING PHYSICIAN: Ivone Berrios MD HISTORY OF PRESENT ILLNESS: Mr. Stapleton is a 78-year-old male with a history of hypertension, anxiet y, depression, prior suicidal attempts, who initially presented 11/09/2018 with melenic stools, ongoi ng for a couple days prior to admit. The patient states in the middle of the night after having jeanie nolvia stools, he had gotten up and went to use the bathroom and felt his legs begin to give out from hi m and the next thing he knew, he had fallen on the ground. He does not remember what had happened. The patient was brought here by paramedics. Upon arrival, temperature 98.3, blood pressure 120/70, p ulse 87, respiratory rate 20, satting 98%. The patient's labs are notable for a white blood count of 20, hemoglobin 8.4, was then dropped to 6.5, platelet count of 283. Sodium 139, potassium 4.8, crea tinine of 2.0, BUN of 87. Troponin negative. INR of 1. UA negative. The patient underwent a chest x-ray revealing no acute cardiopulmonary abnormalities. A head CT revealed mild to moderate age-rel ated cerebral volume loss, mild small vessel ischemic changes. Prominent appearance the lateral vent ricles and third ventricle, it may represent normal pressure hydrocephalus and a cervical spine CT th at revealed a severely reduced the C5-C7, mild degenerative disk disease in the remainder of the spin e and facet arthrosis in the mid and lower cervical spine. The patient's electrocardiogram revealed normal sinus rhythm, rate of 88, normal axis, normal intervals, borderline inferior Q's, nonspecific ST abnormalities. The patient subsequently admitted to the floor and since admit to the floor, has u ndergone an endoscopy procedure today. Colonoscopy unsure of the results at this time, the patient h as required transfusion of packed RBCs. The patient upon arrival back to the floor, patient on telem etry monitoring and was noted to have episodes of 2:1 AV block with heart rates down to the high 30s and 40s. The patient was asymptomatic during this. The patient has now returned to sinus rhythm. PAST MEDICAL HISTORY: As above in HPI. MEDICATIONS CURRENTLY IN HOSPITAL: 1. Atenolol 25 mg daily. 2. Trazodone 100 mg at bedtime. 3. Protonix 40 mg IV b.i.d. 4. Morphine p.r.n. 5. Zofran p.r.n. 6. Ativan p.r.n. ALLERGIES: NO KNOWN DRUG ALLERGIES. SOCIAL HISTORY: No current tobacco, EtOH or illicit drug use. FAMILY HISTORY: No sudden cardiac or early CAD. REVIEW OF SYSTEMS: As above in HPI. CONSTITUTIONAL: No fevers, chills. PULMONARY: No current shortness of breath. CARDIOVASCULAR: Heart block now resolved. GASTROINTESTINAL: GI bleed. GENITOURINARY: No hematuria. MUSCULOSKELETAL: Degenerative joint disease. PSYCHIATRIC: Anxiety, depression. PHYSICAL EXAMINATION: VITAL SIGNS: Temperature 98.6, blood pressure 112/56, pulse 64, respiratory rate 20, satting 95%. GENERAL: The patient is alert, awake, in no acute distress. NECK: JVP approximately 8 to 9 cm of water. CHEST: Fair air movement throughout. HEART: Regular rate and rhythm. Normal S1, S2, 1/6 systolic murmur. Nondisplaced PMI. ABDOMEN: Positive bowel sounds, soft. EXTREMITIES: No edema, 1+ pulses bilateral posterior tibial. LABORATORIES: Most recently from the , white count 10.8, hemoglobin 8.5, platelet count 190. So dium 139, potassium 4.0, creatinine down to 1.3, BUN 29. IMAGING STUDIES: As above in HPI. No further imaging studies for my review at this time. ECG: As above in HPI. No further electrocardiograms for my review at this time. IMPRESSION: 1. Heart block, episodes of 2:1 block with heart rates down to the high 30s and 40s. Status procedu re on beta elsa, stable blood pressure. 2. Hypertension, under well controlled on a beta elsa at this time. 3. Abnormal echocardiogram with inferior Q-waves, but no evidence of significant conduction system d isease. 4. Gastrointestinal bleed, status post endoscopy today. 5. Syncope, likely related to the patient's GI bleed but must rule out associated syncope due to arr hythmia, heart block. 6. Anemia, status post transfusions. 7. Renal failure, renal insufficiency. RECOMMENDATIONS: 1. At this time, we would maintain the patient on telemetry monitoring to follow rhythm and rate con trol closely and assess for any recurrent bouts of a 2:1 heart block. 2. Would hold the patient's beta elsa at this time and follow heart rate and blood pressure close ly and will give p.r.n. antihypertensives as necessary. 3. Check a 2D echo for this patient's ejection fraction, wall motion, rule out major abnormalities, check TSH to be sure of subclinical hypothyroidism is not contributing to any bouts of bradyarrhythmi a and heart block. 4. Check a fasting lipid panel for general risk stratification and initiate lipid medication as nece ssary. 5. Follow the patient's hemoglobin closely with further transfusion as necessary. Thank you for allowing me to take part in the care of this patient. I will continue to follow her ve ry closely with you. Further recommendations will be made as the patient progresses through his [facility] clinical course. Dictated By: TATYANA BRITT/NTS Conf#: [id number] DID#: [id number] CC: IVONE BERRIOS MD;*EndCC*
[2018-11-13] VITALS (9 sets, daily range): BP systolic 104–131; BP diastolic 51–65; PULSE 60–76; RESP 18–20
[2018-11-13] MEDS: PANTOPRAZOLE 40 MG INJ IV SCH ×2 (06:45→17:46)
[2018-11-13] MEDS: ESCITALOPRAM 10 MG TAB PO SCH (08:48)
--- NOTE | 2018-11-13 09:34 | CONS ---
Consult Date/Type/Reason Admit Date/Time Nov 09, 2018 at 13:16 Initial Consult Date Date/Time of Note DATE: 11/13/18 TIME: 09:30 Subjective NO acute events - I reviewed tele strips - looks like guanako with Wenckebach, no Class I indication for pacer - will monitor now - feels better with improved H/H. ROS: No fever, no chills, no nausea, no vomiting, no diarrhea/constipation No recent weight changes No chest pain, no PND, no orthopnea - improved SOB, not dizzy No dizziness, blurred vision No thirst, no heat or cold intolerance Objective Vitals Vital Signs Date Temp Pulse Resp B/P (MAP) Pulse Ox O2 O2 Flow FiO2 Time Delivery Rate 11/13/18 98.3 96 08:47 11/13/18 66 08:01 11/13/18 20 115/58 07:08 (77) 11/13/18 Room Air 00:00 11/12/18 10 11:19 Intake and Output 11/12/18 11/12/18 11/13/18 1515:00 23:00 07:00 IntakeIntake Total 0 ml 720 ml 1100 ml OutputOutput Total 950 ml 550 ml 600 ml BalanceBalance -950 ml 170 ml 500 ml Exam General: WN/WD/NAD, AOx 3 HEENT: Unicetric/atraumatic/EOMI (follows commands) NECK: JVD elevated, no thyromegaly Lymph: no lymphadenopathy HEART: regular with no S3, II/ systolic murmur at apex LUNGS: Coarse sounds ABD: soft, NT, ND, +BS : Intact Neuro: non focal SKIN: chronic changes EXT: trace edema Results/Medications Result Diagram: 11/11/18 0514 11/11/18 1433 Results 24 hrs Laboratory Tests Test 11/12/18 18:16 11/13/18 00:26 11/13/18 05:17 Thyroid Stimulating Hormone (TSH) 0.346 L Troponin I < 0.012 < 0.012 Triglycerides Level 82 Cholesterol Level 87 L LDL Cholesterol, Calculated 48 HDL Cholesterol 23 L Cholesterol/HDL Ratio 3.7 Home Meds Active Scripts Trazodone Hcl* (Trazodone Hcl*) 100 Mg Tablet, 100 MG PO QHS, #10 TAB Prov:KEVIN BOSWELL PA-C 04/23/18 Hydrocodone Bit/Acetaminophen (Anexsia 5-325 Mg Tablet) 1 Tab Tablet, 1 TAB PO Q4H PRN for mild pain, #30 TAB Prov:KYLIE COBURN 04/12/16 Reported Medications Atenolol* (Atenolol*) 25 Mg Tablet, 25 MG PO DAILY, #30 TAB 04/08/16 Escitalopram Oxalate* (Escitalopram Oxalate*) 10 Mg Tablet, 10 MG PO DAILY, #30 TAB 04/08/16 Lorazepam* (Lorazepam*) 0.5 Mg Tablet, 0.5 MG PO Q6, TAB 04/08/16 Discontinued Scripts Atenolol* (Atenolol*) 25 Mg Tablet, 25 MG PO DAILY, #10 TAB Prov:KEVIN BOSWELL PA-C 04/23/18 Lorazepam* (Ativan*) 0.5 Mg Tablet, 0.5 MG PO QHS, #10 TAB Prov:KEVIN BOSWELL PA-C 04/23/18 Escitalopram Oxalate* (Lexapro*) 20 Mg Tablet, 20 MG PO DAILY, #10 TAB Prov:KEVIN BOSWELL PA-C 04/23/18 Medications Current Medications Morphine Sulfate (morphine) 2 mg Q4H PRN IV SEVERE PAIN LEVEL 7-10 Last administered on 11/11/18at 06:12; Admin Dose 2 MG; Start 11/09/18 at 19:30 Ondansetron HCl (Zofran Inj) 4 mg Q6H PRN IV NAUSEA AND/OR VOMITING; Start 11/09/18 at 19:30 Lorazepam (Ativan) 0.5 mg Q6H PRN IV AGITATION Last administered on 11/09/18at 23:14; Admin Dose 0.5 MG; Start 11/09/18 at 19:30 Pantoprazole (Protonix Iv) 40 mg BID@06,18 IV Last administered on 11/13/18at 06:45; Admin Dose 40 MG; Start 11/10/18 at 06:00 Dextrose/Sodium Chloride 1,000 ml @ 60 mls/hr [id number] IV Last administered on 11/12/18at 20:29; Admin Dose 60 MLS/HR; Start 11/10/18 at 18:30 Escitalopram Oxalate (Lexapro) 10 mg DAILY PO Last administered on 11/13/18at 08:48; Admin Dose 10 MG; Start 11/11/18 at 09:00 Trazodone HCl (Desyrel) 100 mg HS PO Last administered on 11/12/18at 20:22; Admin Dose 100 MG; Start 11/10/18 at 21:00 Hydralazine HCl (Apresoline) 10 mg Q4H PRN IV SBP>170; Start 11/12/18 at 18:30 Assessment/Plan Hospital Course (Demo Recall) 1. Heart block, episodes of 2:1 block with heart rates down to the high 30s and 40s. Status procedure on beta elsa, stable blood pressure. I reviewed tele strips - looks like guanako with Leticia, no Class I indication for pacer - will monitor now - feels better with improved H/H. 2. Hypertension, under well controlled on a beta elsa at this time. Better now. 3. Abnormal echocardiogram with inferior Q-waves, but no evidence of significant conduction system disease. 4. Gastrointestinal bleed, status post endoscopy today - H/H stable - likely cause of syncope. 5. Syncope, likely related to the patient's GI bleed but must rule out associated syncope due to arrhythmia, heart block. Con't to monitor. 6. Anemia, status post transfusions- better now. 7. Renal failure, renal insufficiency. AMNA CHI MD Nov 13, 2018 09:34
--- NOTE | 2018-11-13 11:10 | PN ---
Date/Time of Note Date/Time of Note DATE: 11/13/18 TIME: 11:05 Assessment/Plan VTE Prophylaxis Risk score (from Nsg)>0 risk: 7 SCD applied (from Ns): Yes Pharmacological prophylaxis: heparin Lines/Catheters IV Catheter Type (from Nrsg): Peripheral IV Urinary Cath still in place: Yes Reason Cath still needed: urinary retention Assessment/Plan Hospital Course Assessment/Plan -Episode of bradycardia with 2:1 block with heart rates down to the high 30s and 40s on 11/12/18 after colonoscopy. Currently in sinus rhythm. Dr. Connors is following in cardiology consultation. -Upper gastrointestinal bleed. Status post EGD by Dr. Frost with notion of duodenal ulcer. Continue Protonix. Status post colonoscopy. -Anemia of acute blood loss, status post blood transfusion. Continue to monitor hemoglobin and hematocrit. -Acute kidney injury on chronic kidney disease, continue to monitor BUN and creatinine.. -Hypertension. Continue hydralazine as needed. -Chronic low back pain with radiculopathy. -Suicidal ideation and history of several attempts. Continue Lexapro. -Anxiety. Continue Ativan on p.r.n. for agitation. Further recommendations based on clinical course. Plan of care discussed with Dr. Berrios. Result Diagram: 11/11/18 0514 11/11/18 1433 Results 24hrs Laboratory Tests Test 11/12/18 18:16 11/13/18 00:26 11/13/18 05:17 Thyroid Stimulating Hormone (TSH) 0.346 L Troponin I < 0.012 < 0.012 Triglycerides Level 82 Cholesterol Level 87 L LDL Cholesterol, Calculated 48 HDL Cholesterol 23 L Cholesterol/HDL Ratio 3.7 Exam/Review of Systems Exam Vitals Vital Signs Date Temp Pulse Resp B/P (MAP) Pulse Ox O2 O2 Flow FiO2 Time Delivery Rate 11/13/18 98.3 96 08:47 11/13/18 66 08:01 11/13/18 20 115/58 07:08 (77) 11/13/18 Room Air 00:00 11/12/18 10 11:19 Intake and Output 11/12/18 11/12/18 11/13/18 1414:59 22:59 06:59 IntakeIntake Total 0 ml 720 ml 1100 ml OutputOutput Total 950 ml 550 ml 600 ml BalanceBalance -950 ml 170 ml 500 ml Results Results 24hrs Laboratory Tests Test 11/12/18 18:16 11/13/18 00:26 11/13/18 05:17 Thyroid Stimulating Hormone (TSH) 0.346 L Troponin I < 0.012 < 0.012 Triglycerides Level 82 Cholesterol Level 87 L LDL Cholesterol, Calculated 48 HDL Cholesterol 23 L Cholesterol/HDL Ratio 3.7 Medications Medication Current Medications Morphine Sulfate (morphine) 2 mg Q4H PRN IV SEVERE PAIN LEVEL 7-10 Last administered on 11/11/18 06:12; Admin Dose 2 MG; Start 11/09/18 at 19:30 Ondansetron HCl (Zofran Inj) 4 mg Q6H PRN IV NAUSEA AND/OR VOMITING; Start 11/09/18 at 19:30 Lorazepam (Ativan) 0.5 mg Q6H PRN IV AGITATION Last administered on 11/09/18at 23:14; Admin Dose 0.5 MG; Start 11/09/18 at 19:30 Pantoprazole (Protonix Iv) 40 mg BID@06,18 IV Last administered on 11/13/18at 06:45; Admin Dose 40 MG; Start 11/10/18 at 06:00 Dextrose/Sodium Chloride 1,000 ml @ 60 mls/hr [id number] IV Last administered on 11/12/18 20:29; Admin Dose 60 MLS/HR; Start 11/10/18 at 18:30 Escitalopram Oxalate (Lexapro) 10 mg DAILY PO Last administered on 11/13/18 08:48; Admin Dose 10 MG; Start 11/11/18 at 09:00 Trazodone HCl (Desyrel) 100 mg HS PO Last administered on 11/12/18at 20:22; Admin Dose 100 MG; Start 11/10/18 at 21:00 Hydralazine HCl (Apresoline) 10 mg Q4H PRN IV SBP>170; Start 11/12/18 at 18:30 KYLIE COBURN Nov 13, 2018 11:10
[2018-11-13] MEDS: DEXTROSE 5%-0.45% NACL 1,000 ML IV SCH (12:24)
--- NOTE | 2018-11-13 15:24 | RADRPT ---
Echocardiogram Report Patient Name: DEL SEGURAPatient ID: [id number] : 1940 (78y 4m)Study Date: 11/13/2018 8:11:59 AM Gender: MAccession #: [id number] Tech: HusamPrudencio Bradley [facility] Location: [id number] Ref.Physician: TATYANA CONNORS Height(Cm): BSA: Weight(Kg): Quality: AdequateAccount #: Procedures: Echocardiographic Report: Transthoracic echocardiogram with complete 2D, M-Mode, and doppler examination. Indications: Heart Block. Measurements: 2D/M Mode Doppler Measurement Value Normal Range Measurement Value Normal Range LVIDd 2D 4.4 [ 4.2 - 5.8 ] cm AV Peak Thanh 1.5 [ 100.0 - 170.0 ] cm/sec LVIDs 2D 3.4 [ 2.5 - 4.0 ] cm AV Peak PG 9.0 [ 2.0 - 9.0 ] mmHg LVPWd 2D 1.2 [ 0.6 - 1.0 ] cm LVOT Peak Thanh 1.3 [ 70.0 - 110.0 ] cm/sec IVSd 2D 1.3 [ 0.6 - 1.0 ] cm LVOT Peak PG 7.0 [ 2.0 - 6.0 ] mmHg AoR Diam 2D 3.2 [ 2.6 - 3.4 ] cm MV E Peak Thanh 0.7 [ 60.0 - 130.0 ] cm/sec EDV 2D 90.1 [ 62.0 - 150.0 ] ml MV A Peak Thanh 1.0 [ 100.0 - 120.0 ] cm/sec ESV 2D 46.1 [ 21.0 - 61.0 ] ml MV E/A 0.7 [ 0.8 - 1.5 ] ratio EF 2D 48.8 [ 52.0 - 72.0 ] percent MV Decel Time 299 [ 104 - 258 ] msec LA Dimen 2D 3.6 [ 3.0 - 4.0 ] cm Lat E` Thanh 0.1 [ 10.0 - 15.0 ] cm/sec Lateral E/E` 8.0 [ 1.0 - 2.0 ] ratio MV E/A 0.7 [ 0.8 - 1.5 ] ratio Findings: Left Ventricle: Normal left ventricular systolic function. Normal left ventricular cavity size. Mild concentric left ventricular hypertrophy. Ejection fraction is visually estimated at 55-60 %. Tissue Doppler/Mitral Doppler indices are consistent with impaired relaxation (Stage I diastolic dysfunction). Right Ventricle: Normal right ventricular size. Normal right ventricular systolic function. Left Atrium: The left atrium is normal in size. Right Atrium: The right atrium is normal in size. Mitral Valve: Normal appearance and function of the mitral valve with trace physiologic regurgitation. Aortic Valve: No significant aortic stenosis or insufficiency. Aortic cusps appear mildly calcified. Tricuspid Valve: Normal appearance of the tricuspid valve. Unable to obtain RVSP due to minimal presence of tricuspid regurgitation. Pulmonic Valve: Normal pulmonic valve appearance. Pericardium: Normal pericardium with no significant pericardial effusion. Pleural effusion seen. Aorta: Normal aortic root. IVC: Normal size and normal respiratory collapse consistent with normal right atrial pressure. Dilated IVC with respiratory collapse consistent with elevated right atrial pressure. Conclusions: Normal left ventricular systolic function. Normal left ventricular cavity size. Mild concentric left ventricular hypertrophy. Ejection fraction is visually estimated at 55-60 %. Tissue Doppler/Mitral Doppler indices are consistent with impaired relaxation (Stage I diastolic dysfunction). Normal appearance and function of the mitral valve with trace physiologic regurgitation. Normal appearance of the tricuspid valve. Unable to obtain RVSP due to minimal presence of tricuspid regurgitation. Electronically Signed By: Tatyana Connors 2018-11-13 15:24:15 PST
[2018-11-13] MEDS: traZODone 100 MG TAB PO SCH (21:44)
[2018-11-14] VITALS (12 sets, daily range): BP systolic 124–138; BP diastolic 60–63; PULSE 64–88; RESP 16–18
[2018-11-14] MEDS: morphine LIQ (10 MG/5 ML) CUP PO PRN ×2 (03:45→15:14)
[2018-11-14] MEDS: PANTOPRAZOLE 40 MG INJ IV SCH ×2 (05:53→17:09)
[2018-11-14] MEDS: DEXTROSE 5%-0.45% NACL 1,000 ML IV SCH (05:53)
--- NOTE | 2018-11-14 06:29 | PN ---
DATE: 11/14/2018 SUBJECTIVE: The patient was admitted with severe anemia and GI bleeding. Upper endoscopy showed lar ge duodenal ulcer, which was cauterized by bipolar cauterization probe. Colonoscopy showed evidence of no malignancy. PHYSICAL EXAMINATION: GENERAL: The patient is alert, well built. VITAL SIGNS: Temperature 98.3, pulse is 76, blood pressure is 127/60. CARDIOVASCULAR: Normal heart sounds. RESPIRATORY: Normal breath sounds. ABDOMEN: Showed unremarkable findings. LABORATORY WORKUP: Hemoglobin is 8.5. Potassium is a 4.0. The pathology report for H. pylori was done and from the gastric biopsies, no H. pylori identified. The rest of the pathology appeared normal. CLINICAL IMPRESSION: Duodenal ulcer, most likely the source of bleeding since the patient seems stab le. PLAN: Continue present management and the re-endoscope the patient in about 6 weeks. Dictated By: DONNIE QUEEN MD NC/NTS Conf#: [id number] DID#: [id number] CC: IVONE LEON MD;*EndCC*
[2018-11-14] MEDS: ESCITALOPRAM 10 MG TAB PO SCH (08:19)
--- NOTE | 2018-11-14 12:54 | PN ---
Date/Time of Note Date/Time of Note DATE: 11/14/18 TIME: 12:47 Assessment/Plan VTE Prophylaxis Risk score (from Ns)>0 risk: 4 SCD applied (from [facility]): Yes Pharmacological prophylaxis: NA/contraindicated Pharm contraindication: bleeding Lines/Catheters IV C[facility]ter Type (from [facility]): Peripheral IV Central line still needed: Yes Urinary Cath still in place: Yes Reason Cath still needed: urinary retention Assessment/Plan Hospital Course Patient remains hemodynamically stable afebrile, patient denies chest pain, complains of mild pain with taking a deep breath or movement, refused physical therapy pending evaluation by psychiatrist. Assessment/Plan -Episode of bradycardia with 2:1 block with heart rates down to the high 30s and 40s on 11/12/18 after colonoscopy. Currently in sinus rhythm. Dr. Connors is following in cardiology consultation. -Upper gastrointestinal bleed. Status post EGD by Dr. Frost with notion of duodenal ulcer. Continue Protonix. Status post colonoscopy. -Anemia of acute blood loss, status post blood transfusion. Continue to monitor hemoglobin and hematocrit. -Acute kidney injury on chronic kidney disease, continue to monitor BUN and creatinine.. -Hypertension. Continue hydralazine as needed. -Chronic low back pain with radiculopathy. -Suicidal ideation and history of several attempts. Continue Lexapro. -Anxiety. Continue Ativan on p.r.n. for agitation. Further recommendations based on clinical course. Plan of care discussed with Dr. Berrios. Result Diagram: 11/14/18 0457 11/14/18 0457 Results 24hrs Laboratory Tests Test 11/14/18 04:57 White Blood Count 5.8 # Red Blood Count 2.65 L Hemoglobin 8.1 L Hematocrit 24.6 L Mean Corpuscular Volume 92.8 Mean Corpuscular Hemoglobin 30.6 Mean Corpuscular Hemoglobin Concent 32.9 Red Cell Distribution Width 14.3 Platelet Count 258 # Mean Platelet Volume 9.4 Immature Granulocytes % 0.500 H Neutrophils % 63.4 Lymphocytes % 18.9 Monocytes % 12.7 H Eosinophils % 4.2 Basophils % 0.3 Nucleated Red Blood Cells % 0.0 Immature Granulocytes # 0.030 Neutrophils # 3.7 Lymphocytes # 1.1 Monocytes # 0.7 Eosinophils # 0.2 Basophils # 0.0 Nucleated Red Blood Cells # 0.0 Sodium Level 140 Potassium Level 3.7 Chloride Level 111 H Carbon Dioxide Level 24 Anion Gap 5 Blood Urea Nitrogen 22 H Creatinine 1.57 H Est Glomerular Filtrat Rate mL/min Glucose Level 104 Calcium Level 8.6 Exam/Review of Systems Exam Vitals Vital Signs Date Temp Pulse Resp B/P (MAP) Pulse Ox O2 O2 Flow FiO2 Time Delivery Rate 11/14/18 82 12:04 11/14/18 98.9 16 138/63 94 11:14 (88) 11/13/18 Room Air 00:00 11/12/18 10 11:19 Intake and Output 11/13/18 11/13/18 11/14/18 1515:00 23:00 07:00 IntakeIntake Total 650 ml 1260 ml OutputOutput Total 1650 ml 1200 ml BalanceBalance -1000 ml 60 ml Exam Constitutional: alert, oriented Neck: supple Respiratory: clear to auscultation Cardiovascular: regular rate and rhythm Gastrointestinal: soft, non-tender Extremities: normal pulses Results Results 24hrs Laboratory Tests Test 11/14/18 04:57 White Blood Count 5.8 # Red Blood Count 2.65 L Hemoglobin 8.1 L Hematocrit 24.6 L Mean Corpuscular Volume 92.8 Mean Corpuscular Hemoglobin 30.6 Mean Corpuscular Hemoglobin Concent 32.9 Red Cell Distribution Width 14.3 Platelet Count 258 # Mean Platelet Volume 9.4 Immature Granulocytes % 0.500 H Neutrophils % 63.4 Lymphocytes % 18.9 Monocytes % 12.7 H Eosinophils % 4.2 Basophils % 0.3 Nucleated Red Blood Cells % 0.0 Immature Granulocytes # 0.030 Neutrophils # 3.7 Lymphocytes # 1.1 Monocytes # 0.7 Eosinophils # 0.2 Basophils # 0.0 Nucleated Red Blood Cells # 0.0 Sodium Level 140 Potassium Level 3.7 Chloride Level 111 H Carbon Dioxide Level 24 Anion Gap 5 Blood Urea Nitrogen 22 H Creatinine 1.57 H Est Glomerular Filtrat Rate mL/min Glucose Level 104 Calcium Level 8.6 Medications Medication Current Medications Ondansetron HCl (Zofran Inj) 4 mg Q6H PRN IV NAUSEA AND/OR VOMITING; Start 11/09/18 at 19:30 Lorazepam (Ativan) 0.5 mg Q6H PRN IV AGITATION Last administered on 11/09/18at 23:14; Admin Dose 0.5 MG; Start 11/09/18 at 19:30 Pantoprazole (Protonix Iv) 40 mg BID@06,18 IV Last administered on 11/14/18 05:53; Admin Dose 40 MG; Start 11/10/18 at 06:00 Dextrose/Sodium Chloride 1,000 ml @ 60 mls/hr [id number] IV Last administered on 11/14/18 05:53; Admin Dose 60 MLS/HR; Start 11/10/18 at 18:30 Escitalopram Oxalate (Lexapro) 10 mg DAILY PO Last administered on 11/14/18at 08:19; Admin Dose 10 MG; Start 11/11/18 at 09:00 Trazodone HCl (Desyrel) 100 mg HS PO Last administered on 11/13/18at 21:44; Admin Dose 100 MG; Start 11/10/18 at 21:00 Hydralazine HCl (Apresoline) 10 mg Q4H PRN IV SBP>170; Start 11/12/18 at 18:30 Morphine Sulfate (morphine) 6 mg Q4H PRN PO SEVERE PAIN LEVEL 7-10 Last administered on 11/14/18at 03:45; Admin Dose 6 MG; Start 11/13/18 at 22:00 KYLIE COBURN Nov 14, 2018 12:54
--- NOTE | 2018-11-14 14:26 | CONS ---
Assessment/Plan Assessment/Plan Hospital Course (Demo Recall) IMPRESSION: 1. Heart block, episodes of 2:1 block with heart rates down to the high 30s and 40s. Status procedure on beta elsa, stable blood pressure.- NO recurrence. ? due to anesthesia/BB now stopped 2. Hypertension, under well controlled on a beta elsa at this time. 3. Abnormal echocardiogram with inferior Q-waves, but no evidence of significant conduction system disease. 4. Gastrointestinal bleed, status post endoscopy today. 5. Syncope, likely related to the patient's GI bleed but must rule out associated syncope due to arrhythmia, heart block. 6. Anemia, status post transfusions. 7. Renal failure, renal insufficiency. Recc: -Tele -Continue to follow BP off of antihypertenisves at this time -Continue PPI Consultation Date/Type/Reason Admit Date/Time Nov 09, 2018 at 13:16 Initial Consult Date 11/13/18 Type of Consult Cardiology Reason for Consultation Heart Block Requesting Provider: IVONE LEON MD Date/Time of Note DATE: 11/14/18 TIME: 14:23 Exam/Review of Systems Vital Signs Vitals Vital Signs Date Temp Pulse Resp B/P (MAP) Pulse Ox O2 O2 Flow FiO2 Time Delivery Rate 11/14/18 82 12:04 11/14/18 98.9 16 138/63 94 11:14 (88) 11/13/18 Room Air 00:00 11/12/18 10 11:19 Intake and Output 11/13/18 11/13/18 11/14/18 1515:00 23:00 07:00 IntakeIntake Total 650 ml 1260 ml OutputOutput Total 1650 ml 1200 ml BalanceBalance -1000 ml 60 ml Exam Exam Review of Systems: CONSTITUTIONAL: No fevers, chills. PULMONARY: No sob CARDIOVASCULAR: No chest pain/palpitations GASTROINTESTINAL: No nausea/vomiting. GENITOURINARY: No hematuria/dysuria. MUSCULOSKELETAL: No myagias/arthalgias. PSYCHIATRIC: The patient denies depression. NEUROLOGIC: No weakness Constitutional: other (sleeping) Psych: no complaints Head: normocephalic ENMT: mucosa pink and moist Neck: supple, jvd (9 cm water) Respiratory: diminished breath sounds Cardiovascular: regular rate and rhythm Gastrointestinal: soft, non-tender Musculoskeletal: muscle tone (normal) Extremities: edema (none) Neurological: other (No focal deficits) Labs Result Diagram: 11/14/18 0457 11/14/18 0457 Results 24hrs Laboratory Tests Test 11/14/18 04:57 White Blood Count 5.8 # Red Blood Count 2.65 L Hemoglobin 8.1 L Hematocrit 24.6 L Mean Corpuscular Volume 92.8 Mean Corpuscular Hemoglobin 30.6 Mean Corpuscular Hemoglobin Concent 32.9 Red Cell Distribution Width 14.3 Platelet Count 258 # Mean Platelet Volume 9.4 Immature Granulocytes % 0.500 H Neutrophils % 63.4 Lymphocytes % 18.9 Monocytes % 12.7 H Eosinophils % 4.2 Basophils % 0.3 Nucleated Red Blood Cells % 0.0 Immature Granulocytes # 0.030 Neutrophils # 3.7 Lymphocytes # 1.1 Monocytes # 0.7 Eosinophils # 0.2 Basophils # 0.0 Nucleated Red Blood Cells # 0.0 Sodium Level 140 Potassium Level 3.7 Chloride Level 111 H Carbon Dioxide Level 24 Anion Gap 5 Blood Urea Nitrogen 22 H Creatinine 1.57 H Est Glomerular Filtrat Rate mL/min Glucose Level 104 Calcium Level 8.6 Medications Medications Current Medications Ondansetron HCl (Zofran Inj) 4 mg Q6H PRN IV NAUSEA AND/OR VOMITING; Start 11/09/18 at 19:30 Lorazepam (Ativan) 0.5 mg Q6H PRN IV AGITATION Last administered on 11/09/18at 23:14; Admin Dose 0.5 MG; Start 11/09/18 at 19:30 Pantoprazole (Protonix Iv) 40 mg BID@06,18 IV Last administered on 11/14/18at 05:53; Admin Dose 40 MG; Start 11/10/18 at 06:00 Escitalopram Oxalate (Lexapro) 10 mg DAILY PO Last administered on 11/14/18at 08:19; Admin Dose 10 MG; Start 11/11/18 at 09:00 Trazodone HCl (Desyrel) 100 mg HS PO Last administered on 11/13/18at 21:44; Admin Dose 100 MG; Start 11/10/18 at 21:00 Hydralazine HCl (Apresoline) 10 mg Q4H PRN IV SBP>170; Start 11/12/18 at 18:30 Morphine Sulfate (morphine) 6 mg Q4H PRN PO SEVERE PAIN LEVEL 7-10 Last administered on 11/14/18at 03:45; Admin Dose 6 MG; Start 11/13/18 at 22:00 TATYANA LEGER Nov 14, 2018 14:26
--- NOTE | 2018-11-14 17:12 | PSY ---
Date/Time of Note Date/Time of Note DATE: 11/14/18 TIME: 16:56 Psychiatric Subjective Eval Consent Pt consented to telemedicine: No Subjective Evaluation Patient location: inpatient Chief Complaint: GI bleeding couldnt get out of the bathroom blood in stool since 2am History of present illness Patient is a 78year old male brought in for overdose attempt. 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 Patient admit feeling hopeless and helpless, he also admits to social anxiety and he feels the way out is by trying to kill himself . Patient has poor coping skills, requesting for medication to help his social anxiety, however he states he is not sure if he is going to follow-up follow- through with refills and subsequent visits. Past psychiatric history He has history of depression and anxiety and has been hospitalized in the past at [facility] after a previous suicide attempt. Hospitalization: Suicidal Attempt(s) Medical history Problems Medical Problems: (1) Acute prerenal azotemia Status: Acute (2) Anemia Status: Acute (3) Anxiety Status: Acute (4) Back pain Status: Acute (5) Encounter for medication refill Status: Acute (6) Intractable back pain Status: Acute (7) Melanotic stools Status: Acute (8) Overdose Status: Acute (9) Sciatica Status: Acute (10) Suicide threat or attempt Status: Acute (11) Syncope, vasovagal Status: Acute Allergies: Coded Allergies: No Known Allergy (Unverified , 11/09/18) Substance Abuse Substance use: No known substance abuse Substance abuse history: Yes Social History Marital status: single DPA/Conservatorship: No Psychiatric Objective Eval Review of Systems: Review of Systems: Not Applicable Physical Examination: Physical Examination: Not Applicable Sleep: Insomnia Appetite: Decreased Energy: Decreased Interest: Decreased Mental Status Examination: Appearance: Poor Hygiene Eye Contact: Good Psychomotor Activity: Slow Behavior: Cooperative Speech: Soft AFFECT: Flat Mood: Depressed Though Process: Linear Thought Content: Normal Insight: Severe Judgement: Severe Attention Span: Distractible Laboratory Results Laboratory Tests Test 11/12/18 18:16 11/13/18 00:26 11/13/18 05:17 11/13/18 11:16 Thyroid 0.346 MIU/L Stimulating Hormone (TSH) Troponin I < 0.012 ng/ml < 0.012 ng/ml < 0.012 ng/ml Triglycerides 82 mg/dl Level Cholesterol 87 mg/dl Level LDL Cholesterol, 48 mg/dl Calculated HDL Cholesterol 23 mg/dl Cholesterol/HDL 3.7 RATIO Ratio Test 11/14/18 04:57 White Blood 5.8 10^3/ul Count Red Blood Count 2.65 10^6/ul Hemoglobin 8.1 g/dl Hematocrit 24.6 % Mean Corpuscular 92.8 fl Volume Mean Corpuscular 30.6 pg Hemoglobin Mean Corpuscular 32.9 g/dl Hemoglobin Tammy nt Red Cell 14.3 % Distribution Width Platelet Count 258 10^3/UL Mean Platelet 9.4 fl Volume Immature 0.500 % Granulocytes % Neutrophils % 63.4 % Lymphocytes % 18.9 % Monocytes % 12.7 % Eosinophils % 4.2 % Basophils % 0.3 % Nucleated Red 0.0 /100WBC Blood Cells % Immature 0.030 10^3/ul Granulocytes # Neutrophils # 3.7 10^3/ul Lymphocytes # 1.1 10^3/ul Monocytes # 0.7 10^3/ul Eosinophils # 0.2 10^3/ul Basophils # 0.0 10^3/ul Nucleated Red 0.0 10^3/ul Blood Cells # Sodium Level 140 mmol/L Potassium Level 3.7 mmol/L Chloride Level 111 mmol/L Carbon Dioxide 24 mmol/L Level Anion Gap 5 Blood Urea 22 mg/dl Nitrogen Creatinine 1.57 mg/dl Est Glomerular mL/min Filtrat Rate mL/min Glucose Level 104 mg/dl Calcium Level 8.6 mg/dl Assessment and Plan Assessment/Diagnosis Diagnosis Major depressive disorder severe recurrent without psychosis Recommendation/Plan Medication Management Patient is currently on Lexapro will prefer Paxil 20 mg daily Voluntary inpatient psychiatric admission, patient is impulsive and needs help Multiple antipsychotics: No Psychotherapy Provide supportive therapy Discharge Disposition: Other Legal Status: Voluntary ADALGISA TAN NP Nov 14, 2018 17:08
[2018-11-14] MEDS: traZODone 100 MG TAB PO SCH (20:54)
[2018-11-15] VITALS (12 sets, daily range): BP systolic 110–139; BP diastolic 55–63; PULSE 64–108; RESP 15–17
[2018-11-15] MEDS: PANTOPRAZOLE 40 MG INJ IV SCH ×2 (06:28→17:10)
[2018-11-15] MEDS: ESCITALOPRAM 10 MG TAB PO SCH (08:03)
--- NOTE | 2018-11-15 12:10 | CONS ---
Assessment/Plan Assessment/Plan Hospital Course (Demo Recall) IMPRESSION: 1. Heart block, episodes of 2:1 block with heart rates down to the high 30s and 40s. Status procedure on beta elsa, stable blood pressure.- NO recurrence. ? due to anesthesia/BB now stopped 2. Hypertension, under well controlled on a beta elsa at this time. 3. Abnormal echocardiogram with inferior Q-waves, but no evidence of significant conduction system disease. 4. Gastrointestinal bleed, status post endoscopy today. 5. Syncope, likely related to the patient's GI bleed but must rule out associated syncope due to arrhythmia, heart block. 6. Anemia, status post transfusions. 7. Renal failure, renal insufficiency. Recc: -Tele -Continue to follow BP off of antihypertenisves at this time -Continue PPI -ambulation/PT Consultation Date/Type/Reason Admit Date/Time Nov 09, 2018 at 13:16 Initial Consult Date 11/13/18 Type of Consult Cardiology Reason for Consultation Heart Block Requesting Provider: IVONE LEON MD Date/Time of Note DATE: 11/15/18 TIME: 12:08 Exam/Review of Systems Vital Signs Vitals Vital Signs Date Temp Pulse Resp B/P (MAP) Pulse Ox O2 O2 Flow FiO2 Time Delivery Rate 11/15/18 97.8 78 16 110/59 94 Room Air 08:39 (76) 11/12/18 10 11:19 Intake and Output 11/14/18 11/14/18 11/15/18 1515:00 23:00 07:00 IntakeIntake Total 390 ml 750 ml 600 ml OutputOutput Total 1500 ml 1075 ml BalanceBalance 390 ml -750 ml -475 ml Exam Exam Review of Systems: CONSTITUTIONAL: No fevers, chills. PULMONARY: No sob CARDIOVASCULAR: No chest pain/palpitations GASTROINTESTINAL: No nausea/vomiting. GENITOURINARY: No hematuria/dysuria. MUSCULOSKELETAL: No myagias/arthalgias. PSYCHIATRIC: The patient denies depression. NEUROLOGIC: No weakness Constitutional: alert Psych: no complaints Head: normocephalic ENMT: mucosa pink and moist Neck: supple, jvd Respiratory: diminished breath sounds Cardiovascular: regular rate and rhythm Gastrointestinal: soft, non-tender Musculoskeletal: muscle tone (normal) Extremities: edema (none) Neurological: other (mild generalized weakness) Labs Result Diagram: 11/15/1852211/15/18522 Results 24hrs Laboratory Tests Test 11/15/18 05:23 White Blood Count 5.5 Red Blood Count 2.74 L Hemoglobin 8.4 L Hematocrit 25.2 L Mean Corpuscular Volume 92.0 Mean Corpuscular Hemoglobin 30.7 Mean Corpuscular Hemoglobin Concent 33.3 Red Cell Distribution Width 14.2 Platelet Count 278 Mean Platelet Volume 9.0 Immature Granulocytes % 0.700 H Neutrophils % 57.3 Lymphocytes % 21.5 Monocytes % 14.1 H Eosinophils % 6.0 Basophils % 0.4 Nucleated Red Blood Cells % 0.0 Immature Granulocytes # 0.040 H Neutrophils # 3.2 Lymphocytes # 1.2 Monocytes # 0.8 Eosinophils # 0.3 Basophils # 0.0 Nucleated Red Blood Cells # 0.0 Sodium Level 141 Potassium Level 4.1 Chloride Level 110 Carbon Dioxide Level 23 Anion Gap 8 Blood Urea Nitrogen 22 H Creatinine 1.36 H Est Glomerular Filtrat Rate mL/min Glucose Level 96 Calcium Level 8.9 Medications Medications Current Medications Ondansetron HCl (Zofran Inj) 4 mg Q6H PRN IV NAUSEA AND/OR VOMITING; Start 11/09/18 at 19:30 Lorazepam (Ativan) 0.5 mg Q6H PRN IV AGITATION Last administered on 11/09/18at 23:14; Admin Dose 0.5 MG; Start 11/09/18 at 19:30 Pantoprazole (Protonix Iv) 40 mg BID@06,18 IV Last administered on 11/15/18at 06:28; Admin Dose 40 MG; Start 11/10/18 at 06:00 Escitalopram Oxalate (Lexapro) 10 mg DAILY PO Last administered on 11/15/18at 08:03; Admin Dose 10 MG; Start 11/11/18 at 09:00 Trazodone HCl (Desyrel) 100 mg HS PO Last administered on 11/14/18at 20:54; Admin Dose 100 MG; Start 11/10/18 at 21:00 Hydralazine HCl (Apresoline) 10 mg Q4H PRN IV SBP>170; Start 11/12/18 at 18:30 Morphine Sulfate (morphine) 6 mg Q4H PRN PO SEVERE PAIN LEVEL 7-10 Last administered on 11/14/18at 15:14; Admin Dose 6 MG; Start 11/13/18 at 22:00 TATYANA LEGER Nov 15, 2018 12:10
--- NOTE | 2018-11-15 16:02 | PN ---
Date/Time of Note Date/Time of Note DATE: 11/15/18 TIME: 15:59 Assessment/Plan VTE Prophylaxis Risk score (from Ns)>0 risk: 3 SCD applied (from Ns): Yes Pharmacological prophylaxis: NA/contraindicated Pharm contraindication: bleeding Lines/Catheters IV Catheter Type (from Nrsg): Peripheral IV Central line still needed: Yes Urinary Cath still in place: Yes Reason Cath still needed: urinary retention Assessment/Plan Hospital Course Patient was able to work with PT today with sinus tachycardia going all the way to 128 during the exercise patient is also impulsive not safe for independent living with recommendation for SNIF placement. Continue telemetry monitoring, follow-up cardiology and GI recs. Assessment/Plan -Episode of bradycardia with 2:1 block with heart rates down to the high 30s and 40s on 11/12/18 after colonoscopy. Currently in sinus rhythm. Dr. Connors is following in cardiology consultation. -Upper gastrointestinal bleed. Status post EGD by Dr. Frost with notion of du odenal ulcer. Continue Protonix. Status post colonoscopy. -Anemia of acute blood loss, status post blood transfusion. Continue to monitor hemoglobin and hematocrit. -Acute kidney injury on chronic kidney disease, continue to monitor BUN and creatinine.. -Hypertension. Continue hydralazine as needed. -Chronic low back pain with radiculopathy. -Suicidal ideation and history of several attempts. -Major depressive disorder severe recurrent without psychosis. Status post evaluation by accounting/finance tutor [place]. Start Paxil 20 mg daily. -Anxiety. Continue Ativan on p.r.n. for agitation. Further recommendations based on clinical course. Plan of care discussed with Dr. Berrios. Result Diagram: 11/15/1823 11/15/18 0523 Results 24hrs Laboratory Tests Test 11/15/18 05:23 White Blood Count 5.5 Red Blood Count 2.74 L Hemoglobin 8.4 L Hematocrit 25.2 L Mean Corpuscular Volume 92.0 Mean Corpuscular Hemoglobin 30.7 Mean Corpuscular Hemoglobin Concent 33.3 Red Cell Distribution Width 14.2 Platelet Count 278 Mean Platelet Volume 9.0 Immature Granulocytes % 0.700 H Neutrophils % 57.3 Lymphocytes % 21.5 Monocytes % 14.1 H Eosinophils % 6.0 Basophils % 0.4 Nucleated Red Blood Cells % 0.0 Immature Granulocytes # 0.040 H Neutrophils # 3.2 Lymphocytes # 1.2 Monocytes # 0.8 Eosinophils # 0.3 Basophils # 0.0 Nucleated Red Blood Cells # 0.0 Sodium Level 141 Potassium Level 4.1 Chloride Level 110 Carbon Dioxide Level 23 Anion Gap 8 Blood Urea Nitrogen 22 H Creatinine 1.36 H Est Glomerular Filtrat Rate mL/min Glucose Level 96 Calcium Level 8.9 Exam/Review of Systems Exam Vitals Vital Signs Date Temp Pulse Resp B/P (MAP) Pulse Ox O2 O2 Flow FiO2 Time Delivery Rate 11/15/18 98.8 85 16 117/55 95 15:43 (75) 11/15/18 Room Air 08:39 11/12/18 10 11:19 Intake and Output 11/14/18 11/14/18 11/15/18 1515:00 23:00 07:00 IntakeIntake Total 390 ml 750 ml 600 ml OutputOutput Total 1500 ml 1075 ml BalanceBalance 390 ml -750 ml -475 ml Exam Constitutional: alert, oriented Respiratory: clear to auscultation Cardiovascular: regular rate and rhythm Gastrointestinal: soft, non-tender Extremities: normal pulses Results Results 24hrs Laboratory Tests Test 11/15/18 05:23 White Blood Count 5.5 Red Blood Count 2.74 L Hemoglobin 8.4 L Hematocrit 25.2 L Mean Corpuscular Volume 92.0 Mean Corpuscular Hemoglobin 30.7 Mean Corpuscular Hemoglobin Concent 33.3 Red Cell Distribution Width 14.2 Platelet Count 278 Mean Platelet Volume 9.0 Immature Granulocytes % 0.700 H Neutrophils % 57.3 Lymphocytes % 21.5 Monocytes % 14.1 H Eosinophils % 6.0 Basophils % 0.4 Nucleated Red Blood Cells % 0.0 Immature Granulocytes # 0.040 H Neutrophils # 3.2 Lymphocytes # 1.2 Monocytes # 0.8 Eosinophils # 0.3 Basophils # 0.0 Nucleated Red Blood Cells # 0.0 Sodium Level 141 Potassium Level 4.1 Chloride Level 110 Carbon Dioxide Level 23 Anion Gap 8 Blood Urea Nitrogen 22 H Creatinine 1.36 H Est Glomerular Filtrat Rate mL/min Glucose Level 96 Calcium Level 8.9 Medications Medication Current Medications Ondansetron HCl (Zofran Inj) 4 mg Q6H PRN IV NAUSEA AND/OR VOMITING; Start 11/09/18 at 19:30 Lorazepam (Ativan) 0.5 mg Q6H PRN IV AGITATION Last administered on 11/09/18at 23:14; Admin Dose 0.5 MG; Start 11/09/18 at 19:30 Pantoprazole (Protonix Iv) 40 mg BID@,18 IV Last administered on 11/15/18at 06:28; Admin Dose 40 MG; Start 11/10/18 at 06:00 Escitalopram Oxalate (Lexapro) 10 mg DAILY PO Last administered on 11/15/18at 08:03; Admin Dose 10 MG; Start 11/11/18 at 09:00 Trazodone HCl (Desyrel) 100 mg HS PO Last administered on 11/14/18at 20:54; Admin Dose 100 MG; Start 11/10/18 at 21:00 Hydralazine HCl (Apresoline) 10 mg Q4H PRN IV SBP>170; Start 11/12/18 at 18:30 Morphine Sulfate (morphine) 6 mg Q4H PRN PO SEVERE PAIN LEVEL 7-10 Last administered on 11/14/18at 15:14; Admin Dose 6 MG; Start 11/13/18 at 22:00 KYLIE COBURN Nov 15, 2018 16:02
[2018-11-15] MEDS: traZODone 100 MG TAB PO SCH (21:02)
[2018-11-16] VITALS (10 sets, daily range): BP systolic 123–143; BP diastolic 58–69; PULSE 67–86; RESP 16–19
[2018-11-16] MEDS: PANTOPRAZOLE 40 MG INJ IV SCH ×2 (05:38→19:06)
[2018-11-16] MEDS: PAROXETINE 20 MG TAB PO SCH (08:47)
--- NOTE | 2018-11-16 11:15 | PSY ---
Date/Time of Note Date/Time of Note DATE: 11/16/18 TIME: 11:03 Evaluation done on 11/10/2018 Psychiatric Subjective Eval Consent Pt consented to telemedicine: Yes Subjective Evaluation Patient location: inpatient Chief Complaint: GI bleeding couldnt get out of the bathroom blood in stool since 2am Reason for consult: history of depression and told his nurse he was suicidal History of present illness patient is a 78 yo male with PPH of depression and anxiety who was admitted to the medical unit due to GI bleeding. During his medical stay he told a staff that he was feeling suicidal so psychiatry was consulted. Patient tells me that he told the nurse that he wanted to because he was frustrated that he could not sleep because he was being awakened at night for different procedure. He states that he is feeling good now, he denies feeling suicidal, he wants to get better. He denies feeling depressed but anxious about his medical condition, he states that he takes lexapro at home for his depression . denies any past or current manic or psychotic symptoms. no past suicidal attempt. Past psychiatric history no past suicidal attempt Hospitalization: Suicidal Attempt(s) Family History denies Medical history Problems Medical Problems: (1) Acute prerenal azotemia Status: Acute (2) Anemia Status: Acute (3) Anxiety Status: Acute (4) Back pain Status: Acute (5) Encounter for medication refill Status: Acute (6) Intractable back pain Status: Acute (7) Melanotic stools Status: Acute (8) Overdose Status: Acute (9) Sciatica Status: Acute (10) Suicide threat or attempt Status: Acute (11) Syncope, vasovagal Status: Acute Allergies: Coded Allergies: No Known Allergy (Unverified , 11/09/18) Substance Abuse Substance use: No known substance abuse Social History Marital status: single DPA/Conservatorship: No Psychiatric Objective Eval Review of Systems: Review of Systems: Not Applicable Physical Examination: Physical Examination: Applicable Sleep: Adequate Appetite: Adequate Energy: Adequate Interest: Adequate Mental Status Examination: Appearance: Disheveled Eye Contact: Good Psychomotor Activity: Normal Behavior: Cooperative Speech: Clear AFFECT: Anxious Mood: Anxious Though Process: Linear Thought Content: Normal Suicidal: No Homicidal: No On 72 hour hold: No Orientation: x3 Cognition: Alert Insight: Intact Judgement: Intact Attention Span: Intact Laboratory Results Laboratory Tests Test 11/15/18 05:23 11/16/18 05:13 White Blood Count 5.5 10^3/ul 6.2 10^3/ul Red Blood Count 2.74 10^6/ul 2.95 10^6/ul Hemoglobin 8.4 g/dl 9.0 g/dl Hematocrit 25.2 % 27.2 % Mean Corpuscular Volume 92.0 fl 92.2 fl Mean Corpuscular Hemoglobin 30.7 pg 30.5 pg Mean Corpuscular Hemoglobin Concent 33.3 g/dl 33.1 g/dl Red Cell Distribution Width 14.2 % 14.1 % Platelet Count 278 10^3/UL 327 10^3/UL Mean Platelet Volume 9.0 fl 9.2 fl Immature Granulocytes % 0.700 % 0.800 % Neutrophils % 57.3 % 60.2 % Lymphocytes % 21.5 % 21.0 % Monocytes % 14.1 % 12.4 % Eosinophils % 6.0 % 5.1 % Basophils % 0.4 % 0.5 % Nucleated Red Blood Cells % 0.0 /100WBC 0.0 /100WBC Immature Granulocytes # 0.040 10^3/ul 0.050 10^3/ul Neutrophils # 3.2 10^3/ul 3.8 10^3/ul Lymphocytes # 1.2 10^3/ul 1.3 10^3/ul Monocytes # 0.8 10^3/ul 0.8 10^3/ul Eosinophils # 0.3 10^3/ul 0.3 10^3/ul Basophils # 0.0 10^3/ul 0.0 10^3/ul Nucleated Red Blood Cells # 0.0 10^3/ul 0.0 10^3/ul Sodium Level 141 mmol/L 138 mmol/L Potassium Level 4.1 mmol/L 4.3 mmol/L Chloride Level 110 mmol/L 108 mmol/L Carbon Dioxide Level 23 mmol/L 27 mmol/L Anion Gap 8 3 Blood Urea Nitrogen 22 mg/dl 25 mg/dl Creatinine 1.36 mg/dl 1.40 mg/dl Est Glomerular Filtrat Rate mL/min mL/min mL/min Glucose Level 96 mg/dl 88 mg/dl Calcium Level 8.9 mg/dl 9.3 mg/dl Assessment and Plan Assessment/Diagnosis Diagnosis unspecified mood disorder Recommendation/Plan Medication Management continue lexapro 10 mg po qd Multiple antipsychotics: No Discharge Disposition: Community (home) Legal Status: Release involuntary hold Other patient should be restarted on lexapro 10 mg po qd no one to one needed he is not a danger to self or other FERN BATISTA MD Nov 16, 2018 11:13
--- NOTE | 2018-11-16 11:52 | PN ---
Date/Time of Note Date/Time of Note DATE: 11/16/18 TIME: 11:51 Assessment/Plan VTE Prophylaxis Risk score (from Nsg)>0 risk: 5 SCD applied (from Nsg): No Lines/Catheters IV Catheter Type (from Nrsg): Peripheral IV Urinary Cath still in place: Yes Reason Cath still needed: urinary retention Assessment/Plan Assessment/Plan -Episode of bradycardia with 2:1 block with heart rates down to the high 30s and 40s on 11/12/18 after colonoscopy. Currently in sinus rhythm. Dr. Connors is following in cardiology consultation. -Upper gastrointestinal bleed. Status post EGD by Dr. Frost with notion of duodenal ulcer. Continue Protonix. Status post colonoscopy. -Anemia of acute blood loss, status post blood transfusion. Continue to monitor hemoglobin and hematocrit. -Acute kidney injury on chronic kidney disease, continue to monitor BUN and creatinine.. -Hypertension. Continue hydralazine as needed. -Chronic low back pain with radiculopathy. -Suicidal ideation and history of several attempts. -Major depressive disorder severe recurrent without psychosis. Status post evaluation by blood typer Onyekwe. Start Paxil 20 mg daily. -Anxiety. Continue Ativan on p.r.n. for agitation. Further recommendations based on clinical course. Plan of care discussed with Dr. Berrios. Result Diagram: 11/16/1851211/16/18512 Results 24hrs Laboratory Tests Test 11/16/18 05:13 White Blood Count 6.2 Red Blood Count 2.95 L Hemoglobin 9.0 L Hematocrit 27.2 L Mean Corpuscular Volume 92.2 Mean Corpuscular Hemoglobin 30.5 Mean Corpuscular Hemoglobin Concent 33.1 Red Cell Distribution Width 14.1 Platelet Count 327 Mean Platelet Volume 9.2 Immature Granulocytes % 0.800 H Neutrophils % 60.2 Lymphocytes % 21.0 Monocytes % 12.4 H Eosinophils % 5.1 Basophils % 0.5 Nucleated Red Blood Cells % 0.0 Immature Granulocytes # 0.050 H Neutrophils # 3.8 Lymphocytes # 1.3 Monocytes # 0.8 Eosinophils # 0.3 Basophils # 0.0 Nucleated Red Blood Cells # 0.0 Sodium Level 138 Potassium Level 4.3 Chloride Level 108 Carbon Dioxide Level 27 Anion Gap 3 L Blood Urea Nitrogen 25 H Creatinine 1.40 H Est Glomerular Filtrat Rate mL/min Glucose Level 88 Calcium Level 9.3 Exam/Review of Systems Exam Vitals Vital Signs Date Temp Pulse Resp B/P (MAP) Pulse Ox O2 O2 Flow FiO2 Time Delivery Rate 11/16/18 98.3 74 19 123/58 99 11:32 (79) 11/15/18 Room Air 08:39 11/12/18 10 11:19 Intake and Output 11/15/18 11/15/18 11/16/18 1414:59 22:59 06:59 IntakeIntake Total 800 ml 500 ml OutputOutput Total 1300 ml 1250 ml BalanceBalance -500 ml -750 ml Results Results 24hrs Laboratory Tests Test 11/16/18 05:13 White Blood Count 6.2 Red Blood Count 2.95 L Hemoglobin 9.0 L Hematocrit 27.2 L Mean Corpuscular Volume 92.2 Mean Corpuscular Hemoglobin 30.5 Mean Corpuscular Hemoglobin Concent 33.1 Red Cell Distribution Width 14.1 Platelet Count 327 Mean Platelet Volume 9.2 Immature Granulocytes % 0.800 H Neutrophils % 60.2 Lymphocytes % 21.0 Monocytes % 12.4 H Eosinophils % 5.1 Basophils % 0.5 Nucleated Red Blood Cells % 0.0 Immature Granulocytes # 0.050 H Neutrophils # 3.8 Lymphocytes # 1.3 Monocytes # 0.8 Eosinophils # 0.3 Basophils # 0.0 Nucleated Red Blood Cells # 0.0 Sodium Level 138 Potassium Level 4.3 Chloride Level 108 Carbon Dioxide Level 27 Anion Gap 3 L Blood Urea Nitrogen 25 H Creatinine 1.40 H Est Glomerular Filtrat Rate mL/min Glucose Level 88 Calcium Level 9.3 Medications Medication Current Medications Ondansetron HCl (Zofran Inj) 4 mg Q6H PRN IV NAUSEA AND/OR VOMITING; Start 11/09/18 at 19:30 Lorazepam (Ativan) 0.5 mg Q6H PRN IV AGITATION Last administered on 11/09/18at 23:14; Admin Dose 0.5 MG; Start 11/09/18 at 19:30 Pantoprazole (Protonix Iv) 40 mg BID@06,18 IV Last administered on 11/16/18at 05:38; Admin Dose 40 MG; Start 11/10/18 at 06:00 Trazodone HCl (Desyrel) 100 mg HS PO Last administered on 11/15/18at 21:02; Admin Dose 100 MG; Start 11/10/18 at 21:00 Hydralazine HCl (Apresoline) 10 mg Q4H PRN IV SBP>170; Start 11/12/18 at 18:30 Morphine Sulfate (morphine) 6 mg Q4H PRN PO SEVERE PAIN LEVEL 7-10 Last administered on 11/14/18at 15:14; Admin Dose 6 MG; Start 11/13/18 at 22:00 Paroxetine HCl (Paxil) 20 mg DAILY PO Last administered on 11/16/18at 08:47; Admin Dose 20 MG; Start 11/16/18 at 09:00 ERLIN MILLER Nov 16, 2018 11:52
--- NOTE | 2018-11-16 12:05 | CONS ---
Assessment/Plan Assessment/Plan Assessment/Plan (Daily) 1. acute kidney injury due to prerenal azotemia + hemodynamics 2. Acute GI bleeding Upper 3. Acute blood loss anemia 4. h/o CKD III 5. h/o HTN 6. 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 Severe bradycardia with 2:1 block Plan: seen in Tele floor, BUN/Cr improved to 1/4 today, continue current care pt ole has CKD III due to HTN No need for renal US at this time since Cr improving Cardiology following For bradycardi and 2;1 block Thanks for consultation, I will continue to follow up Consultation Date/Type/Reason Admit Date/Time Nov 09, 2018 at 13:16 Date of Consultation: Nov 16, 2018 Type of Consult NEPHROLOGY Reason for Consultation acute kidney injury with GI bleeding Requesting Provider: IVONE LEON MD Date/Time of Note DATE: 11/16/18 TIME: 12:05 Hx of Present Illness 78-year-old male with a history of hypertension, anxiety, depression, prior suicidal attempts, who initially presented 11/09/2018 with melenic stools, ongoing for a couple days prior to admit. pt gets admitted for syncope and upon arrival to floor, atient on telemetry monitoring and was noted to have episodes of 2:1 AV block with heart rates down to the high 30s and 40s. being followed up by cardiology dr. Connors, his BUN/Cr 87/2.04- Renal has been consulted for acute kidney injury Cr still high around 1.4 Constitutional: poor po Eyes: no complaints ENT: no complaints Respiratory: no complaints Cardiovascular: no complaints, lightheadedness Gastrointestinal: no complaints Genitourinary: no complaints Musculoskeletal: no complaints Skin: no complaints Neurologic: no complaints Endocrine: no complaints Lymphatic: no complaints Psychological: no complaints Immunologic: no complaints Past Medical History Medical History: hypertension, other (BPH) Home Meds Active Scripts Trazodone Hcl* (Trazodone Hcl*) 100 Mg Tablet, 100 MG PO QHS, #10 TAB Prov:KEVIN BOSWELL PA-C 04/23/18 Hydrocodone Bit/Acetaminophen (Anexsia 5-325 Mg Tablet) 1 Tab Tablet, 1 TAB PO Q4H PRN for mild pain, #30 TAB Prov:KYLIE COBURN 04/12/16 Reported Medications Atenolol* (Atenolol*) 25 Mg Tablet, 25 MG PO DAILY, #30 TAB 04/08/16 Escitalopram Oxalate* (Escitalopram Oxalate*) 10 Mg Tablet, 10 MG PO DAILY, #30 TAB 04/08/16 Lorazepam* (Lorazepam*) 0.5 Mg Tablet, 0.5 MG PO Q6, TAB 04/08/16 Medications Current Medications Ondansetron HCl (Zofran Inj) 4 mg Q6H PRN IV NAUSEA AND/OR VOMITING; Start 11/09/18 at 19:30 Lorazepam (Ativan) 0.5 mg Q6H PRN IV AGITATION Last administered on 11/09/18at 23:14; Admin Dose 0.5 MG; Start 11/09/18 at 19:30 Pantoprazole (Protonix Iv) 40 mg BID@06,18 IV Last administered on 11/16/18at 05:38; Admin Dose 40 MG; Start 11/10/18 at 06:00 Trazodone HCl (Desyrel) 100 mg HS PO Last administered on 11/15/18at 21:02; Admin Dose 100 MG; Start 11/10/18 at 21:00 Hydralazine HCl (Apresoline) 10 mg Q4H PRN IV SBP>170; Start 11/12/18 at 18:30 Morphine Sulfate (morphine) 6 mg Q4H PRN PO SEVERE PAIN LEVEL 7-10 Last administered on 11/14/18at 15:14; Admin Dose 6 MG; Start 11/13/18 at 22:00 Paroxetine HCl (Paxil) 20 mg DAILY PO Last administered on 11/16/18at 08:47; Admin Dose 20 MG; Start 11/16/18 at 09:00 Allergies: Coded Allergies: No Known Allergy (Unverified , 11/09/18) Past Surgical History Past Surgical Hx: other (Rotator cuff surgery ) Family History Significant Family History: no pertinent family hx Social History Alcohol Use: none Smoking Status: Never smoker Drug Use: none Exam/Review of Systems Exam Vitals Vital Signs Date Temp Pulse Resp B/P (MAP) Pulse Ox O2 O2 Flow FiO2 Time Delivery Rate 11/16/18 98.3 74 19 123/58 99 11:32 (79) 11/15/18 Room Air 08:39 11/12/18 10 11:19 Intake and Output 11/15/18 11/15/18 11/16/18 1414:59 22:59 06:59 IntakeIntake Total 800 ml 500 ml OutputOutput Total 1300 ml 1250 ml BalanceBalance -500 ml -750 ml Constitutional: alert Psych: no complaints Head: normocephalic Eyes: nl conjunctiva ENMT: nl external ears & nose Neck: supple, non-tender Respiratory: clear to auscultation Cardiovascular: regular rate and rhythm, nl pulses Gastrointestinal: soft, non-tender Musculoskeletal: nl extremities to inspection Extremities: normal pulses 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 intact, nl mental status, nl speech, nl strength Results Result Diagram: 11/16/1851211/16/18512 Results 24hrs Laboratory Tests Test 11/16/18 05:13 White Blood Count 6.2 Red Blood Count 2.95 L Hemoglobin 9.0 L Hematocrit 27.2 L Mean Corpuscular Volume 92.2 Mean Corpuscular Hemoglobin 30.5 Mean Corpuscular Hemoglobin Concent 33.1 Red Cell Distribution Width 14.1 Platelet Count 327 Mean Platelet Volume 9.2 Immature Granulocytes % 0.800 H Neutrophils % 60.2 Lymphocytes % 21.0 Monocytes % 12.4 H Eosinophils % 5.1 Basophils % 0.5 Nucleated Red Blood Cells % 0.0 Immature Granulocytes # 0.050 H Neutrophils # 3.8 Lymphocytes # 1.3 Monocytes # 0.8 Eosinophils # 0.3 Basophils # 0.0 Nucleated Red Blood Cells # 0.0 Sodium Level 138 Potassium Level 4.3 Chloride Level 108 Carbon Dioxide Level 27 Anion Gap 3 L Blood Urea Nitrogen 25 H Creatinine 1.40 H Est Glomerular Filtrat Rate mL/min Glucose Level 88 Calcium Level 9.3 Medications Medication Current Medications Ondansetron HCl (Zofran Inj) 4 mg Q6H PRN IV NAUSEA AND/OR VOMITING; Start 11/09/18 at 19:30 Lorazepam (Ativan) 0.5 mg Q6H PRN IV AGITATION Last administered on 11/09/18at 23:14; Admin Dose 0.5 MG; Start 11/09/18 at 19:30 Pantoprazole (Protonix Iv) 40 mg BID@06,18 IV Last administered on 11/16/18at 05:38; Admin Dose 40 MG; Start 11/10/18 at 06:00 Trazodone HCl (Desyrel) 100 mg HS PO Last administered on 11/15/18at 21:02; Admin Dose 100 MG; Start 11/10/18 at 21:00 Hydralazine HCl (Apresoline) 10 mg Q4H PRN IV SBP>170; Start 11/12/18 at 18:30 Morphine Sulfate (morphine) 6 mg Q4H PRN PO SEVERE PAIN LEVEL 7-10 Last administered on 11/14/18at 15:14; Admin Dose 6 MG; Start 11/13/18 at 22:00 Paroxetine HCl (Paxil) 20 mg DAILY PO Last administered on 11/16/18at 08:47; Admin Dose 20 MG; Start 11/16/18 at 09:00 MCKENNA ACEVES MD Nov 16, 2018 12:05
--- NOTE | 2018-11-16 12:22 | CONS ---
Assessment/Plan Assessment/Plan Hospital Course (Demo Recall) IMPRESSION: 1. Heart block, episodes of 2:1 block with heart rates down to the high 30s and 40s. Status procedure on beta elsa, stable blood pressure.- NO recurrence. ? due to anesthesia/BB now stopped 2. Hypertension, under well controlled on a beta elsa at this time. 3. Abnormal echocardiogram with inferior Q-waves, but no evidence of significant conduction system disease. 4. Gastrointestinal bleed, status post endoscopy today. 5. Syncope, likely related to the patient's GI bleed but must rule out associated syncope due to arrhythmia, heart block. 6. Anemia, status post transfusions. 7. Renal failure, renal insufficiency. Recc: -Tele -Continue to follow BP off of antihypertenisves at this time -Continue PPI -ambulation/PT Consultation Date/Type/Reason Admit Date/Time Nov 09, 2018 at 13:16 Initial Consult Date 11/13/18 Type of Consult Cardiology Reason for Consultation Heart Block Requesting Provider: IVONE LEON MD Date/Time of Note DATE: 11/16/18 TIME: 12:21 Exam/Review of Systems Vital Signs Vitals Vital Signs Date Temp Pulse Resp B/P (MAP) Pulse Ox O2 O2 Flow FiO2 Time Delivery Rate 11/16/18 86 12:08 11/16/18 98.3 19 123/58 99 11:32 (79) 11/15/18 Room Air 08:39 11/12/18 10 11:19 Intake and Output 11/15/18 11/15/18 11/16/18 1414:59 22:59 06:59 IntakeIntake Total 800 ml 500 ml OutputOutput Total 1300 ml 1250 ml BalanceBalance -500 ml -750 ml Exam Exam Review of Systems: CONSTITUTIONAL: No fevers, chills. PULMONARY: No sob CARDIOVASCULAR: No chest pain/palpitations GASTROINTESTINAL: No nausea/vomiting. GENITOURINARY: No hematuria/dysuria. MUSCULOSKELETAL: No myagias/arthalgias. PSYCHIATRIC: The patient denies depression. NEUROLOGIC: No weakness Constitutional: other (sleeping) Psych: no complaints Head: normocephalic ENMT: mucosa pink and moist Neck: supple, jvd (9 cm water) Respiratory: clear to auscultation Cardiovascular: regular rate and rhythm Gastrointestinal: soft, non-tender Musculoskeletal: muscle tone (normal) Extremities: edema (none) Neurological: other (No focal deficits) Labs Result Diagram: 11/16/1851211/16/18 0513 Results 24hrs Laboratory Tests Test 11/16/18 05:13 White Blood Count 6.2 Red Blood Count 2.95 L Hemoglobin 9.0 L Hematocrit 27.2 L Mean Corpuscular Volume 92.2 Mean Corpuscular Hemoglobin 30.5 Mean Corpuscular Hemoglobin Concent 33.1 Red Cell Distribution Width 14.1 Platelet Count 327 Mean Platelet Volume 9.2 Immature Granulocytes % 0.800 H Neutrophils % 60.2 Lymphocytes % 21.0 Monocytes % 12.4 H Eosinophils % 5.1 Basophils % 0.5 Nucleated Red Blood Cells % 0.0 Immature Granulocytes # 0.050 H Neutrophils # 3.8 Lymphocytes # 1.3 Monocytes # 0.8 Eosinophils # 0.3 Basophils # 0.0 Nucleated Red Blood Cells # 0.0 Sodium Level 138 Potassium Level 4.3 Chloride Level 108 Carbon Dioxide Level 27 Anion Gap 3 L Blood Urea Nitrogen 25 H Creatinine 1.40 H Est Glomerular Filtrat Rate mL/min Glucose Level 88 Calcium Level 9.3 Medications Medications Current Medications Ondansetron HCl (Zofran Inj) 4 mg Q6H PRN IV NAUSEA AND/OR VOMITING; Start 11/09/18 at 19:30 Lorazepam (Ativan) 0.5 mg Q6H PRN IV AGITATION Last administered on 11/09/18at 23:14; Admin Dose 0.5 MG; Start 11/09/18 at 19:30 Pantoprazole (Protonix Iv) 40 mg BID@06,18 IV Last administered on 11/16/18at 05:38; Admin Dose 40 MG; Start 11/10/18 at 06:00 Trazodone HCl (Desyrel) 100 mg HS PO Last administered on 11/15/18at 21:02; Admin Dose 100 MG; Start 11/10/18 at 21:00 Hydralazine HCl (Apresoline) 10 mg Q4H PRN IV SBP>170; Start 11/12/18 at 18:30 Morphine Sulfate (morphine) 6 mg Q4H PRN PO SEVERE PAIN LEVEL 7-10 Last administered on 11/14/18at 15:14; Admin Dose 6 MG; Start 11/13/18 at 22:00 Paroxetine HCl (Paxil) 20 mg DAILY PO Last administered on 11/16/18at 08:47; Admin Dose 20 MG; Start 11/16/18 at 09:00 TATYANA LEGER Nov 16, 2018 12:22
[2018-11-16] MEDS: traZODone 100 MG TAB PO SCH (20:30)
[2018-11-17] VITALS (12 sets, daily range): BP systolic 127–139; BP diastolic 60–69; PULSE 71–92; RESP 18–19
[2018-11-17] MEDS: PANTOPRAZOLE 40 MG INJ IV SCH ×2 (05:14→17:26)
[2018-11-17] MEDS: PAROXETINE 20 MG TAB PO SCH (08:02)
--- NOTE | 2018-11-17 11:09 | PN ---
Date/Time of Note Date/Time of Note DATE: 11/17/18 TIME: 11:08 Assessment/Plan VTE Prophylaxis Risk score (from [employer] [facility] [employer])>0 risk: 5 SCD applied (from [employer] [facility] [employer]): Yes Pharmacological prophylaxis: NA/contraindicated Pharm contraindication: bleeding Lines/Catheters [facility] Saline Lock Urinary Cath still in place: Yes Reason Cath still needed: skin wounds contaminated by urine Assessment/Plan Hospital Course -Episode of bradycardia with 2:1 block with heart rates down to the high 30s and 40s on 11/12/18 after colonoscopy. Currently in sinus rhythm. Dr. Connors is following in cardiology consultation. -Upper gastrointestinal bleed. Status post EGD by Dr. Frost with notion of duodenal ulcer. Continue Protonix. Status post colonoscopy. -Anemia of acute blood loss, status post blood transfusion. Continue to monitor hemoglobin and hematocrit. -Acute kidney injury on chronic kidney disease, continue to monitor BUN and cre atinine.. -Hypertension. Continue hydralazine as needed. -Chronic low back pain with radiculopathy. -Suicidal ideation and history of several attempts. -Major depressive disorder severe recurrent without psychosis. Status post evaluation by nuclear monitoring technician On[place]we. Start Paxil 20 mg daily. -Anxiety. Continue Ativan on p.r.n. for agitation. Result Diagram: 11/17/1851311/17/18513 Results 24hrs Laboratory Tests Test 11/17/18 05:14 White Blood Count 6.1 Red Blood Count 3.00 L Hemoglobin 9.1 L Hematocrit 27.7 L Mean Corpuscular Volume 92.3 Mean Corpuscular Hemoglobin 30.3 Mean Corpuscular Hemoglobin Concent 32.9 Red Cell Distribution Width 14.0 Platelet Count 292 Mean Platelet Volume 9.9 Immature Granulocytes % 0.500 H Neutrophils % 62.1 Lymphocytes % 20.2 Monocytes % 11.9 H Eosinophils % 4.8 Basophils % 0.5 Nucleated Red Blood Cells % 0.0 Immature Granulocytes # 0.030 Neutrophils # 3.8 Lymphocytes # 1.2 Monocytes # 0.7 Eosinophils # 0.3 Basophils # 0.0 Nucleated Red Blood Cells # 0.0 Sodium Level 137 Potassium Level 4.3 Chloride Level 107 Carbon Dioxide Level 24 Anion Gap 6 Blood Urea Nitrogen 25 H Creatinine 1.49 H Est Glomerular Filtrat Rate mL/min Glucose Level 93 Calcium Level 9.1 Subjective 24 Hr Interval Summary Free Text/Dictation Patient has no complaints Exam/Review of Systems Exam Vitals Vital Signs Date Temp Pulse Resp B/P (MAP) Pulse Ox O2 O2 Flow FiO2 Time Delivery Rate 11/17/18 92 08:01 11/17/18 98.4 19 131/68 97 07:27 (89) 11/17/18 Room Air 03:51 Intake and Output 11/16/18 11/16/18 11/17/18 1515:00 23:00 07:00 IntakeIntake Total 360 ml 640 ml 500 ml OutputOutput Total 1400 ml 800 ml BalanceBalance 360 ml -760 ml -300 ml Constitutional: well developed Head: normocephalic, atraumatic Neck: supple Respiratory: diminished breath sounds Cardiovascular: regular rate and rhythm Gastrointestinal: soft, non-tender Extremities: normal pulses Results Results 24hrs Laboratory Tests Test 11/17/18 05:14 White Blood Count 6.1 Red Blood Count 3.00 L Hemoglobin 9.1 L Hematocrit 27.7 L Mean Corpuscular Volume 92.3 Mean Corpuscular Hemoglobin 30.3 Mean Corpuscular Hemoglobin Concent 32.9 Red Cell Distribution Width 14.0 Platelet Count 292 Mean Platelet Volume 9.9 Immature Granulocytes % 0.500 H Neutrophils % 62.1 Lymphocytes % 20.2 Monocytes % 11.9 H Eosinophils % 4.8 Basophils % 0.5 Nucleated Red Blood Cells % 0.0 Immature Granulocytes # 0.030 Neutrophils # 3.8 Lymphocytes # 1.2 Monocytes # 0.7 Eosinophils # 0.3 Basophils # 0.0 Nucleated Red Blood Cells # 0.0 Sodium Level 137 Potassium Level 4.3 Chloride Level 107 Carbon Dioxide Level 24 Anion Gap 6 Blood Urea Nitrogen 25 H Creatinine 1.49 H Est Glomerular Filtrat Rate mL/min Glucose Level 93 Calcium Level 9.1 Medications Medication Current Medications Ondansetron HCl (Zofran Inj) 4 mg Q6H PRN IV NAUSEA AND/OR VOMITING; Start 11/09/18 at 19:30 Lorazepam (Ativan) 0.5 mg Q6H PRN IV AGITATION Last administered on 11/09/18at 23:14; Admin Dose 0.5 MG; Start 11/09/18 at 19:30 Pantoprazole (Protonix Iv) 40 mg BID@06,18 IV Last administered on 11/17/18 05:14; Admin Dose 40 MG; Start 11/10/18 at 06:00 Trazodone HCl (Desyrel) 100 mg HS PO Last administered on 11/16/18 20:30; Admin Dose 100 MG; Start 11/10/18 at 21:00 Hydralazine HCl (Apresoline) 10 mg Q4H PRN IV SBP>170; Start 11/12/18 at 18:30 Morphine Sulfate (morphine) 6 mg Q4H PRN PO SEVERE PAIN LEVEL 7-10 Last administered on 11/14/18at 15:14; Admin Dose 6 MG; Start 11/13/18 at 22:00 Paroxetine HCl (Paxil) 20 mg DAILY PO Last administered on 11/17/18 08:02; Admin Dose 20 MG; Start 11/16/18 at 09:00 CARMEN FERREIRA Nov 17, 2018 11:09
--- NOTE | 2018-11-17 11:59 | CONS ---
Assessment/Plan Assessment/Plan Hospital Course (Demo Recall) IMPRESSION: 1. Heart block, episodes of 2:1 block with heart rates down to the high 30s and 40s. Status procedure on beta elsa, stable blood pressure.- NO recurrence. ? due to anesthesia/BB now stopped 2. Hypertension, under well controlled on a beta elsa at this time. 3. Abnormal echocardiogram with inferior Q-waves, but no evidence of significant conduction system disease. 4. Gastrointestinal bleed, status post endoscopy today. 5. Syncope, likely related to the patient's GI bleed but must rule out associated syncope due to arrhythmia, heart block. 6. Anemia, status post transfusions. 7. Renal failure, renal insufficiency. Recc: -Tele -Continue to follow BP off of antihypertenisves at this time -Continue PPI -ambulation/PT Consultation Date/Type/Reason Admit Date/Time Nov 09, 2018 at 13:16 Initial Consult Date 11/13/18 Type of Consult Cardiology Reason for Consultation HEart Block Requesting Provider: IVONE LEON MD Date/Time of Note DATE: 11/17/18 TIME: 11:57 Exam/Review of Systems Vital Signs Vitals Vital Signs Date Temp Pulse Resp B/P (MAP) Pulse Ox O2 O2 Flow FiO2 Time Delivery Rate 11/17/18 98.2 84 19 130/68 96 11:40 (88) 11/17/18 Room Air 03:51 Intake and Output 11/16/18 11/16/18 11/17/18 1414:59 22:59 06:59 IntakeIntake Total 360 ml 640 ml 500 ml OutputOutput Total 1400 ml 800 ml BalanceBalance 360 ml -760 ml -300 ml Exam Exam Review of Systems: CONSTITUTIONAL: No fevers, chills. PULMONARY: No sob CARDIOVASCULAR: No chest pain/palpitations GASTROINTESTINAL: No nausea/vomiting. GENITOURINARY: No hematuria/dysuria. MUSCULOSKELETAL: No myagias/arthalgias. PSYCHIATRIC: The patient denies depression. NEUROLOGIC: No weakness Constitutional: alert Psych: no complaints Head: normocephalic ENMT: mucosa pink and moist Neck: supple, jvd (9 cm water) Respiratory: clear to auscultation Cardiovascular: regular rate and rhythm Gastrointestinal: soft Musculoskeletal: muscle tone (normal) Extremities: edema (none) Neurological: other (No focal deficits) Labs Result Diagram: 11/17/1814 11/17/1814 Results 24hrs Laboratory Tests Test 11/17/18 05:14 White Blood Count 6.1 Red Blood Count 3.00 L Hemoglobin 9.1 L Hematocrit 27.7 L Mean Corpuscular Volume 92.3 Mean Corpuscular Hemoglobin 30.3 Mean Corpuscular Hemoglobin Concent 32.9 Red Cell Distribution Width 14.0 Platelet Count 292 Mean Platelet Volume 9.9 Immature Granulocytes % 0.500 H Neutrophils % 62.1 Lymphocytes % 20.2 Monocytes % 11.9 H Eosinophils % 4.8 Basophils % 0.5 Nucleated Red Blood Cells % 0.0 Immature Granulocytes # 0.030 Neutrophils # 3.8 Lymphocytes # 1.2 Monocytes # 0.7 Eosinophils # 0.3 Basophils # 0.0 Nucleated Red Blood Cells # 0.0 Sodium Level 137 Potassium Level 4.3 Chloride Level 107 Carbon Dioxide Level 24 Anion Gap 6 Blood Urea Nitrogen 25 H Creatinine 1.49 H Est Glomerular Filtrat Rate mL/min Glucose Level 93 Calcium Level 9.1 Medications Medications Current Medications Ondansetron HCl (Zofran Inj) 4 mg Q6H PRN IV NAUSEA AND/OR VOMITING; Start 11/09/18 at 19:30 Lorazepam (Ativan) 0.5 mg Q6H PRN IV AGITATION Last administered on 11/09/18at 23:14; Admin Dose 0.5 MG; Start 11/09/18 at 19:30 Pantoprazole (Protonix Iv) 40 mg BID@06,18 IV Last administered on 11/17/18at 05:14; Admin Dose 40 MG; Start 11/10/18 at 06:00 Trazodone HCl (Desyrel) 100 mg HS PO Last administered on 11/16/18 20:30; Admin Dose 100 MG; Start 11/10/18 at 21:00 Hydralazine HCl (Apresoline) 10 mg Q4H PRN IV SBP>170; Start 11/12/18 at 18:30 Morphine Sulfate (morphine) 6 mg Q4H PRN PO SEVERE PAIN LEVEL 7-10 Last administered on 11/14/18at 15:14; Admin Dose 6 MG; Start 11/13/18 at 22:00 Paroxetine HCl (Paxil) 20 mg DAILY PO Last administered on 11/17/18at 08:02; Admin Dose 20 MG; Start 11/16/18 at 09:00 TATYANA LEGER Nov 17, 2018 11:59
--- NOTE | 2018-11-17 15:17 | CONS ---
Assessment/Plan Assessment/Plan Assessment/Plan (Daily) 1. acute kidney injury due to prerenal azotemia + hemodynamics 2. Acute GI bleeding Upper 3. Acute blood loss anemia 4. h/o CKD III 5. h/o HTN 6. 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 Severe bradycardia with 2:1 block Plan: seen in Tele floor, BUN/Cr improved to 1/4 today, continue current care uo - 2.2 L/24 hrs pt ole has CKD III due to HTN No need for renal US at this time since Cr improving Cardiology following For bradycardi and 2;1 block Plan of care julia Gonzalez Patient. Dw staff Consultation Date/Type/Reason Admit Date/Time Nov 09, 2018 at 13:16 Initial Consult Date 11/16/18 Requesting Provider: IVONE LEON MD Date/Time of Note DATE: 11/17/18 TIME: 15:15 24 HR Interval Summary Free Text/Dictation - NAD - afebrile - no new issues reported last night Detailed Summary Eyes: no complaints ENT: no complaints Respiratory: no complaints Cardiovascular: no complaints Gastrointestinal: no complaints Genitourinary: no complaints Musculoskeletal: other (enerelized weakness) Skin: no complaints Neurologic: no complaints Endocrine: no complaints Exam/Review of Systems Exam Vitals Vital Signs Date Temp Pulse Resp B/P (MAP) Pulse Ox O2 O2 Flow FiO2 Time Delivery Rate 11/17/18 98.4 84 19 128/60 94 15:07 (82) 11/17/18 Room Air 03:51 Intake and Output 11/16/18 11/16/18 11/17/18 1515:00 23:00 07:00 IntakeIntake Total 360 ml 640 ml 500 ml OutputOutput Total 1400 ml 800 ml BalanceBalance 360 ml -760 ml -300 ml Constitutional: alert, oriented, well developed Psych: nl mood/affect Head: atraumatic Eyes: EOMI, nl lids, nl sclera ENMT: nl external ears & nose Neck: non-tender Respiratory: clear to auscultation Cardiovascular: nl pulses, other (s1s2) Gastrointestinal: soft, non-tender Musculoskeletal: nl extremities to inspection Extremities: normal pulses Neurological: nl mental status, nl speech Lymph: nontender Results Result Diagram: 2/23/19 0514 2/23/19 0514 Results 24hrs Laboratory Tests Test 11/17/18 05:14 White Blood Count 6.1 Red Blood Count 3.00 L Hemoglobin 9.1 L Hematocrit 27.7 L Mean Corpuscular Volume 92.3 Mean Corpuscular Hemoglobin 30.3 Mean Corpuscular Hemoglobin Concent 32.9 Red Cell Distribution Width 14.0 Platelet Count 292 Mean Platelet Volume 9.9 Immature Granulocytes % 0.500 H Neutrophils % 62.1 Lymphocytes % 20.2 Monocytes % 11.9 H Eosinophils % 4.8 Basophils % 0.5 Nucleated Red Blood Cells % 0.0 Immature Granulocytes # 0.030 Neutrophils # 3.8 Lymphocytes # 1.2 Monocytes # 0.7 Eosinophils # 0.3 Basophils # 0.0 Nucleated Red Blood Cells # 0.0 Sodium Level 137 Potassium Level 4.3 Chloride Level 107 Carbon Dioxide Level 24 Anion Gap 6 Blood Urea Nitrogen 25 H Creatinine 1.49 H Est Glomerular Filtrat Rate mL/min Glucose Level 93 Calcium Level 9.1 Medications Medication Current Medications Ondansetron HCl (Zofran Inj) 4 mg Q6H PRN IV NAUSEA AND/OR VOMITING; Start 11/09/18 at 19:30 Lorazepam (Ativan) 0.5 mg Q6H PRN IV AGITATION Last administered on 11/09/18at 23:14; Admin Dose 0.5 MG; Start 11/09/18 at 19:30 Pantoprazole (Protonix Iv) 40 mg BID@06,18 IV Last administered on 11/17/18at 05:14; Admin Dose 40 MG; Start 11/10/18 at 06:00 Trazodone HCl (Desyrel) 100 mg HS PO Last administered on 11/16/18at 20:30; Admin Dose 100 MG; Start 11/10/18 at 21:00 Hydralazine HCl (Apresoline) 10 mg Q4H PRN IV SBP>170; Start 11/12/18 at 18:30 Morphine Sulfate (morphine) 6 mg Q4H PRN PO SEVERE PAIN LEVEL 7-10 Last administered on 11/14/18at 15:14; Admin Dose 6 MG; Start 11/13/18 at 22:00 Paroxetine HCl (Paxil) 20 mg DAILY PO Last administered on 11/17/18at 08:02; Admin Dose 20 MG; Start 11/16/18 at 09:00 ERLIN MILLERb 23, 2019 15:17
[2018-11-17] MEDS ORDERED: ACETAMINOPHEN 500 MG TAB PO PRN (18:00)
[2018-11-17] MEDS: traZODone 100 MG TAB PO SCH (21:15)
[2018-11-18] VITALS (11 sets, daily range): BP systolic 121–139; BP diastolic 63–70; PULSE 61–84; RESP 18–20
[2018-11-18] MEDS: PANTOPRAZOLE 40 MG INJ IV SCH ×2 (05:28→18:39)
[2018-11-18] MEDS: PAROXETINE 20 MG TAB PO SCH (08:29)
--- NOTE | 2018-11-18 11:27 | PN ---
Date/Time of Note Date/Time of Note DATE: 11/18/18 TIME: 11:26 Assessment/Plan VTE Prophylaxis Risk score (from Ns)>0 risk: 5 SCD applied (from Ns): Yes Pharmacological prophylaxis: LMWH Lines/Catheters IV Catheter Type (from Nrs): Peripheral IV Urinary Cath still in place: Yes Reason Cath still needed: skin wounds contaminated by urine Assessment/Plan Hospital Course -Episode of bradycardia with 2:1 block with heart rates down to the high 30s and 40s on 11/12/18 after colonoscopy. Currently in sinus rhythm. Dr. Connors is following in cardiology consultation. -Upper gastrointestinal bleed. Status post EGD by Dr. Frost with notion of duodenal ulcer. Continue Protonix. Status post colonoscopy. -Anemia of acute blood loss, status post blood transfusion. Continue to monitor hemoglobin and hematocrit. -Acute kidney injury on chronic kidney disease, continue to monitor BUN and creatinine.. -Hypertension. Continue hydralazine as needed. -Chronic low back pain with radiculopathy. -Suicidal ideation and history of several attempts. -Major depressive disorder severe recurrent without psychosis. 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 Start Paxil 20 mg daily. -Anxiety. Continue Ativan on p.r.n. for agitation. Result Diagram: 11/18/18 0452 11/18/18 0452 Results 24hrs Laboratory Tests Test 11/18/18 04:52 White Blood Count 5.9 Red Blood Count 3.08 L Hemoglobin 9.2 L Hematocrit 28.0 L Mean Corpuscular Volume 90.9 Mean Corpuscular Hemoglobin 29.9 Mean Corpuscular Hemoglobin Concent 32.9 Red Cell Distribution Width 13.7 Platelet Count 353 # Mean Platelet Volume 8.8 Immature Granulocytes % 0.700 H Neutrophils % 61.2 Lymphocytes % 21.6 Monocytes % 11.1 H Eosinophils % 4.9 Basophils % 0.5 Nucleated Red Blood Cells % 0.0 Immature Granulocytes # 0.040 H Neutrophils # 3.6 Lymphocytes # 1.3 Monocytes # 0.7 Eosinophils # 0.3 Basophils # 0.0 Nucleated Red Blood Cells # 0.0 Sodium Level 140 Potassium Level 4.3 Chloride Level 107 Carbon Dioxide Level 25 Anion Gap 8 Blood Urea Nitrogen 28 H Creatinine 1.54 H Est Glomerular Filtrat Rate mL/min Glucose Level 93 Calcium Level 9.2 Subjective 24 Hr Interval Summary Free Text/Dictation Patient complains of uri symptoms Exam/Review of Systems Exam Vitals Vital Signs Date Temp Pulse Resp B/P (MAP) Pulse Ox O2 O2 Flow FiO2 Time Delivery Rate 11/18/18 98.2 79 19 128/70 94 11:19 (89) 11/18/18 Room Air 04:07 Intake and Output 11/17/18 11/17/18 11/18/18 1414:59 22:59 06:59 IntakeIntake Total 700 ml 600 ml OutputOutput Total 800 ml 800 ml BalanceBalance -100 ml -200 ml Constitutional: well developed Head: normocephalic, atraumatic Neck: supple Respiratory: diminished breath sounds Cardiovascular: regular rate and rhythm Gastrointestinal: soft, non-tender Extremities: normal pulses Results Results 24hrs Laboratory Tests Test 11/18/18 04:52 White Blood Count 5.9 Red Blood Count 3.08 L Hemoglobin 9.2 L Hematocrit 28.0 L Mean Corpuscular Volume 90.9 Mean Corpuscular Hemoglobin 29.9 Mean Corpuscular Hemoglobin Concent 32.9 Red Cell Distribution Width 13.7 Platelet Count 353 # Mean Platelet Volume 8.8 Immature Granulocytes % 0.700 H Neutrophils % 61.2 Lymphocytes % 21.6 Monocytes % 11.1 H Eosinophils % 4.9 Basophils % 0.5 Nucleated Red Blood Cells % 0.0 Immature Granulocytes # 0.040 H Neutrophils # 3.6 Lymphocytes # 1.3 Monocytes # 0.7 Eosinophils # 0.3 Basophils # 0.0 Nucleated Red Blood Cells # 0.0 Sodium Level 140 Potassium Level 4.3 Chloride Level 107 Carbon Dioxide Level 25 Anion Gap 8 Blood Urea Nitrogen 28 H Creatinine 1.54 H Est Glomerular Filtrat Rate mL/min Glucose Level 93 Calcium Level 9.2 Medications Medication Current Medications Ondansetron HCl (Zofran Inj) 4 mg Q6H PRN IV NAUSEA AND/OR VOMITING; Start 11/09/18 at 19:30 Lorazepam (Ativan) 0.5 mg Q6H PRN IV AGITATION Last administered on 11/09/18at 23:14; Admin Dose 0.5 MG; Start 11/09/18 at 19:30 Pantoprazole (Protonix Iv) 40 mg BID@06,18 IV Last administered on 11/18/18at 05:28; Admin Dose 40 MG; Start 11/10/18 at 06:00 Trazodone HCl (Desyrel) 100 mg HS PO Last administered on 11/17/18at 21:15; Admin Dose 100 MG; Start 11/10/18 at 21:00 Hydralazine HCl (Apresoline) 10 mg Q4H PRN IV SBP>170; Start 11/12/18 at 18:30 Morphine Sulfate (morphine) 6 mg Q4H PRN PO SEVERE PAIN LEVEL 7-10 Last administered on 11/14/18at 15:14; Admin Dose 6 MG; Start 11/13/18 at 22:00 Paroxetine HCl (Paxil) 20 mg DAILY PO Last administered on 11/18/18 08:29; Admin Dose 20 MG; Start 11/16/18 at 09:00 Acetaminophen (Tylenol Tab) 500 mg Q6H PRN PO MILD PAIN(1-3)OR ELEVATED TEMP Last administered on 11/17/18at 23:57; Admin Dose 500 MG; Start 11/17/18 at 18:00 CARMEN FERREIRA Nov 18, 2018 11:27
--- NOTE | 2018-11-18 11:38 | CONS ---
Assessment/Plan Assessment/Plan Hospital Course (Demo Recall) IMPRESSION: 1. Heart block, episodes of 2:1 block with heart rates down to the high 30s and 40s. Status procedure on beta elsa, stable blood pressure.- NO recurrence. ? due to anesthesia/since BB stopped 2. Hypertension, under well controlled on a beta elsa at this time. 3. Abnormal echocardiogram with inferior Q-waves, but no evidence of significant conduction system disease. 4. Gastrointestinal bleed, status post endoscopy today. 5. Syncope, likely related to the patient's GI bleed but must rule out associated syncope due to arrhythmia, heart block. 6. Anemia, status post transfusions. 7. Renal failure, renal insufficiency. 8. Cough Recc: -Tele -Continue to follow BP off of antihypertenisves at this time -Continue PPI -ambulation/PT -started on cough suppresant Consultation Date/Type/Reason Admit Date/Time Nov 09, 2018 at 13:16 Initial Consult Date 11/13/18 Type of Consult Cardiology Reason for Consultation Heart Block Requesting Provider: IVONE LEON MD Date/Time of Note DATE: 11/18/18 TIME: 11:35 Exam/Review of Systems Vital Signs Vitals Vital Signs Date Temp Pulse Resp B/P (MAP) Pulse Ox O2 O2 Flow FiO2 Time Delivery Rate 11/18/18 98.2 79 19 128/70 94 11:19 (89) 11/18/18 Room Air 04:07 Intake and Output 11/17/18 11/17/18 11/18/18 1515:00 23:00 07:00 IntakeIntake Total 700 ml 600 ml OutputOutput Total 800 ml 800 ml BalanceBalance -100 ml -200 ml Exam Exam Review of Systems: CONSTITUTIONAL: No fevers, chills. PULMONARY:cough CARDIOVASCULAR: No chest pain/palpitations GASTROINTESTINAL: No nausea/vomiting. GENITOURINARY: No hematuria/dysuria. MUSCULOSKELETAL: No myagias/arthalgias. PSYCHIATRIC: The patient denies depression. NEUROLOGIC: No weakness Constitutional: alert Psych: no complaints Head: normocephalic ENMT: mucosa pink and moist Neck: supple, jvd (9 cm water) Respiratory: diminished breath sounds (at bases/B) Cardiovascular: regular rate and rhythm Gastrointestinal: soft, non-tender Musculoskeletal: muscle tone (normal) Extremities: edema (none) Neurological: other (No focal deficits) Labs Result Diagram: 11/18/18 0452 11/18/18 0452 Results 24hrs Laboratory Tests Test 11/18/18 04:52 White Blood Count 5.9 Red Blood Count 3.08 L Hemoglobin 9.2 L Hematocrit 28.0 L Mean Corpuscular Volume 90.9 Mean Corpuscular Hemoglobin 29.9 Mean Corpuscular Hemoglobin Concent 32.9 Red Cell Distribution Width 13.7 Platelet Count 353 # Mean Platelet Volume 8.8 Immature Granulocytes % 0.700 H Neutrophils % 61.2 Lymphocytes % 21.6 Monocytes % 11.1 H Eosinophils % 4.9 Basophils % 0.5 Nucleated Red Blood Cells % 0.0 Immature Granulocytes # 0.040 H Neutrophils # 3.6 Lymphocytes # 1.3 Monocytes # 0.7 Eosinophils # 0.3 Basophils # 0.0 Nucleated Red Blood Cells # 0.0 Sodium Level 140 Potassium Level 4.3 Chloride Level 107 Carbon Dioxide Level 25 Anion Gap 8 Blood Urea Nitrogen 28 H Creatinine 1.54 H Est Glomerular Filtrat Rate mL/min Glucose Level 93 Calcium Level 9.2 Medications Medications Current Medications Ondansetron HCl (Zofran Inj) 4 mg Q6H PRN IV NAUSEA AND/OR VOMITING; Start 11/09/18 at 19:30 Lorazepam (Ativan) 0.5 mg Q6H PRN IV AGITATION Last administered on 11/09/18at 23:14; Admin Dose 0.5 MG; Start 11/09/18 at 19:30 Pantoprazole (Protonix Iv) 40 mg BID@06,18 IV Last administered on 11/18/18at 05:28; Admin Dose 40 MG; Start 11/10/18 at 06:00 Trazodone HCl (Desyrel) 100 mg HS PO Last administered on 11/17/18at 21:15; Admin Dose 100 MG; Start 11/10/18 at 21:00 Hydralazine HCl (Apresoline) 10 mg Q4H PRN IV SBP>170; Start 11/12/18 at 18:30 Morphine Sulfate (morphine) 6 mg Q4H PRN PO SEVERE PAIN LEVEL 7-10 Last administered on 11/14/18at 15:14; Admin Dose 6 MG; Start 11/13/18 at 22:00 Paroxetine HCl (Paxil) 20 mg DAILY PO Last administered on 11/18/18at 08:29; Admin Dose 20 MG; Start 11/16/18 at 09:00 Acetaminophen (Tylenol Tab) 500 mg Q6H PRN PO MILD PAIN(1-3)OR ELEVATED TEMP Last administered on 11/17/18at 23:57; Admin Dose 500 MG; Start 11/17/18 at 18:00 Guaifenesin/ Dextromethorphan (Robitussin Dm Liquid Cup) 10 ml Q4H PRN PO cough; Start 11/18/18 at 12:00 Docusate Sodium (Colace) 100 mg BID PRN PO CONSTIPATION; Start 11/18/18 at 12:00 TATYANA LEGER Nov 18, 2018 11:38
[2018-11-18] MEDS: DOCUSATE SODIUM 100 MG CAP PO PRN ×2 (12:38→21:01)
[2018-11-18] MEDS: GUAIFENESIN/DM 5ML CUP PO PRN ×2 (12:38→21:01)
[2018-11-18] MEDS ORDERED: SOD CHLORIDE 0.45% 1,000 ML IV SCH (14:00)
[2018-11-18] MEDS: traZODone 100 MG TAB PO SCH (21:00)
[2018-11-19] VITALS (13 sets, daily range): BP systolic 115–139; BP diastolic 56–75; PULSE 66–97; RESP 17–20
[2018-11-19] MEDS: PANTOPRAZOLE 40 MG INJ IV SCH (06:06)
[2018-11-19] MEDS: PAROXETINE 20 MG TAB PO SCH (08:44)
--- NOTE | 2018-11-19 11:38 | CONS ---
Assessment/Plan Assessment/Plan Hospital Course (Demo Recall) IMPRESSION: 1. Heart block, episodes of 2:1 block with heart rates down to the high 30s and 40s. Status procedure on beta elsa, stable blood pressure.- ? due to anesthesia/No recurrence since BB stopped 2. Hypertension, under well controlled on a beta elsa at this time. 3. Abnormal echocardiogram with inferior Q-waves, but no evidence of significant conduction system disease. 4. Gastrointestinal bleed, status post endoscopy today. 5. Syncope, likely related to the patient's GI bleed but must rule out associated syncope due to arrhythmia, heart block. 6. Anemia, status post transfusions. 7. Renal failure, renal insufficiency. 8. Cough Recc: -Tele -Continue to follow BP off of antihypertenisves at this time -Continue PPI -ambulation/PT -Continue cough suppressant for symptomatic relief Consultation Date/Type/Reason Admit Date/Time Nov 09, 2018 at 13:16 Initial Consult Date 11/13/18 Type of Consult Cardiology Reason for Consultation heart block Requesting Provider: IVONE LEON MD Date/Time of Note DATE: 11/19/18 TIME: 11:36 Exam/Review of Systems Vital Signs Vitals Vital Signs Date Temp Pulse Resp B/P (MAP) Pulse Ox O2 O2 Flow FiO2 Time Delivery Rate 11/19/18 97 18 121/56 97 11:32 (77) 11/19/18 97.9 11:31 11/18/18 Room Air 04:07 Intake and Output 11/18/18 11/18/18 11/19/18 1515:00 23:00 07:00 IntakeIntake Total 750 ml 1250 ml OutputOutput Total 1400 ml 3000 ml BalanceBalance -650 ml -1750 ml Exam Exam Review of Systems: CONSTITUTIONAL: No fevers, chills. PULMONARY: No sob CARDIOVASCULAR: No chest pain/palpitations GASTROINTESTINAL: No nausea/vomiting. GENITOURINARY: No hematuria/dysuria. MUSCULOSKELETAL: No myagias/arthalgias. PSYCHIATRIC: The patient denies depression. NEUROLOGIC: No weakness Constitutional: alert Psych: no complaints Head: normocephalic ENMT: mucosa pink and moist Neck: supple, jvd (9 cm water) Respiratory: clear to auscultation Cardiovascular: regular rate and rhythm Gastrointestinal: soft Musculoskeletal: muscle tone (normal) Extremities: edema (none) Labs Result Diagram: 11/19/18 0453 11/19/18 0453 Results 24hrs Laboratory Tests Test 11/19/18 04:53 White Blood Count 6.5 Red Blood Count 3.15 L Hemoglobin 9.5 L Hematocrit 28.7 L Mean Corpuscular Volume 91.1 Mean Corpuscular Hemoglobin 30.2 Mean Corpuscular Hemoglobin Concent 33.1 Red Cell Distribution Width 13.9 Platelet Count 362 Mean Platelet Volume 9.1 Immature Granulocytes % 0.800 H Neutrophils % 65.7 Lymphocytes % 16.5 Monocytes % 12.5 H Eosinophils % 4.2 Basophils % 0.3 Nucleated Red Blood Cells % 0.0 Immature Granulocytes # 0.050 H Neutrophils # 4.3 Lymphocytes # 1.1 Monocytes # 0.8 Eosinophils # 0.3 Basophils # 0.0 Nucleated Red Blood Cells # 0.0 Sodium Level 139 Potassium Level 4.3 Chloride Level 107 Carbon Dioxide Level 23 Anion Gap 9 Blood Urea Nitrogen 26 H Creatinine 1.46 H Est Glomerular Filtrat Rate mL/min Glucose Level 90 Calcium Level 9.3 Medications Medications Current Medications Ondansetron HCl (Zofran Inj) 4 mg Q6H PRN IV NAUSEA AND/OR VOMITING; Start 11/09/18 at 19:30 Lorazepam (Ativan) 0.5 mg Q6H PRN IV AGITATION Last administered on 11/09/18at 23:14; Admin Dose 0.5 MG; Start 11/09/18 at 19:30 Pantoprazole (Protonix Iv) 40 mg BID@06,18 IV Last administered on 11/19/18 06:06; Admin Dose 40 MG; Start 11/10/18 at 06:00 Trazodone HCl (Desyrel) 100 mg HS PO Last administered on 11/18/18at 21:00; Admin Dose 100 MG; Start 11/10/18 at 21:00 Hydralazine HCl (Apresoline) 10 mg Q4H PRN IV SBP>170; Start 11/12/18 at 18:30 Morphine Sulfate (morphine) 6 mg Q4H PRN PO SEVERE PAIN LEVEL 7-10 Last administered on 11/14/18at 15:14; Admin Dose 6 MG; Start 11/13/18 at 22:00 Paroxetine HCl (Paxil) 20 mg DAILY PO Last administered on 2/25/19at 08:44; Admin Dose 20 MG; Start 11/16/18 at 09:00 Acetaminophen (Tylenol Tab) 500 mg Q6H PRN PO MILD PAIN(1-3)OR ELEVATED TEMP Last administered on 11/17/18 23:57; Admin Dose 500 MG; Start 11/17/18 at 18:00 Guaifenesin/ Dextromethorphan (Robitussin Dm Liquid Cup) 10 ml Q4H PRN PO cough Last administered on 11/18/18 21:01; Admin Dose 10 ML; Start 11/18/18 at 12:00 Docusate Sodium (Colace) 100 mg BID PRN PO CONSTIPATION Last administered on 11/18/18 21:01; Admin Dose 100 MG; Start 11/18/18 at 12:00 TATYANA LEGER Nov 19, 2018 11:38
--- NOTE | 2018-11-19 15:45 | PN ---
Date/Time of Note Date/Time of Note DATE: 11/19/18 TIME: 15:44 Assessment/Plan VTE Prophylaxis Risk score (from Nsg)>0 risk: 5 SCD applied (from Nsg): Yes Lines/Catheters IV Catheter Type (from Nrsg): Peripheral IV Urinary Cath still in place: Yes Assessment/Plan Assessment/Plan -Episode of bradycardia with 2:1 block with heart rates down to the high 30s and 40s on 11/12/18 after colonoscopy. Currently in sinus rhythm. Dr. Connors is following in cardiology consultation. -Upper gastrointestinal bleed. Status post EGD by Dr. Frost with notion of duodenal ulcer. Continue Protonix. Status post colonoscopy. -Anemia of acute blood loss, status post blood transfusion. Continue to monitor hemoglobin and hematocrit. -Acute kidney injury on chronic kidney disease, continue to monitor BUN and creatinine.. -Hypertension. Continue hydralazine as needed. -Chronic low back pain with radiculopathy. -Suicidal ideation and history of several attempts. -Major depressive disorder severe recurrent without psychosis. 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 Start Paxil 20 mg daily. -Anxiety. Continue Ativan on p.r.n. for agitation. Result Diagram: 11/19/18 0453 11/19/18 0453 Results 24hrs Laboratory Tests Test 11/19/18 04:53 White Blood Count 6.5 Red Blood Count 3.15 L Hemoglobin 9.5 L Hematocrit 28.7 L Mean Corpuscular Volume 91.1 Mean Corpuscular Hemoglobin 30.2 Mean Corpuscular Hemoglobin Concent 33.1 Red Cell Distribution Width 13.9 Platelet Count 362 Mean Platelet Volume 9.1 Immature Granulocytes % 0.800 H Neutrophils % 65.7 Lymphocytes % 16.5 Monocytes % 12.5 H Eosinophils % 4.2 Basophils % 0.3 Nucleated Red Blood Cells % 0.0 Immature Granulocytes # 0.050 H Neutrophils # 4.3 Lymphocytes # 1.1 Monocytes # 0.8 Eosinophils # 0.3 Basophils # 0.0 Nucleated Red Blood Cells # 0.0 Sodium Level 139 Potassium Level 4.3 Chloride Level 107 Carbon Dioxide Level 23 Anion Gap 9 Blood Urea Nitrogen 26 H Creatinine 1.46 H Est Glomerular Filtrat Rate mL/min Glucose Level 90 Calcium Level 9.3 Exam/Review of Systems Exam Vitals Vital Signs Date Temp Pulse Resp B/P (MAP) Pulse Ox O2 O2 Flow FiO2 Time Delivery Rate 11/19/18 98.4 79 17 124/63 95 15:42 (83) 11/18/18 Room Air 04:07 Intake and Output 11/18/18 11/18/18 11/19/18 1515:00 23:00 07:00 IntakeIntake Total 750 ml 1250 ml OutputOutput Total 1400 ml 3000 ml BalanceBalance -650 ml -1750 ml Results Results 24hrs Laboratory Tests Test 11/19/18 04:53 White Blood Count 6.5 Red Blood Count 3.15 L Hemoglobin 9.5 L Hematocrit 28.7 L Mean Corpuscular Volume 91.1 Mean Corpuscular Hemoglobin 30.2 Mean Corpuscular Hemoglobin Concent 33.1 Red Cell Distribution Width 13.9 Platelet Count 362 Mean Platelet Volume 9.1 Immature Granulocytes % 0.800 H Neutrophils % 65.7 Lymphocytes % 16.5 Monocytes % 12.5 H Eosinophils % 4.2 Basophils % 0.3 Nucleated Red Blood Cells % 0.0 Immature Granulocytes # 0.050 H Neutrophils # 4.3 Lymphocytes # 1.1 Monocytes # 0.8 Eosinophils # 0.3 Basophils # 0.0 Nucleated Red Blood Cells # 0.0 Sodium Level 139 Potassium Level 4.3 Chloride Level 107 Carbon Dioxide Level 23 Anion Gap 9 Blood Urea Nitrogen 26 H Creatinine 1.46 H Est Glomerular Filtrat Rate mL/min Glucose Level 90 Calcium Level 9.3 Medications Medication Current Medications Ondansetron HCl (Zofran Inj) 4 mg Q6H PRN IV NAUSEA AND/OR VOMITING; Start 11/09/18 at 19:30 Lorazepam (Ativan) 0.5 mg Q6H PRN IV AGITATION Last administered on 11/09/18at 23:14; Admin Dose 0.5 MG; Start 11/09/18 at 19:30 Pantoprazole (Protonix Iv) 40 mg BID@,18 IV Last administered on 11/19/18at 06:06; Admin Dose 40 MG; Start 11/10/18 at 06:00 Trazodone HCl (Desyrel) 100 mg HS PO Last administered on 11/18/18at 21:00; Admin Dose 100 MG; Start 11/10/18 at 21:00 Hydralazine HCl (Apresoline) 10 mg Q4H PRN IV SBP>170; Start 11/12/18 at 18:30 Morphine Sulfate (morphine) 6 mg Q4H PRN PO SEVERE PAIN LEVEL 7-10 Last administered on 11/14/18 15:14; Admin Dose 6 MG; Start 11/13/18 at 22:00 Paroxetine HCl (Paxil) 20 mg DAILY PO Last administered on 11/19/18 08:44; Admin Dose 20 MG; Start 11/16/18 at 09:00 Acetaminophen (Tylenol Tab) 500 mg Q6H PRN PO MILD PAIN(1-3)OR ELEVATED TEMP Last administered on 11/17/18 23:57; Admin Dose 500 MG; Start 11/17/18 at 18:00 Guaifenesin/ Dextromethorphan (Robitussin Dm Liquid Cup) 10 ml Q4H PRN PO cough Last administered on 11/18/18 21:01; Admin Dose 10 ML; Start 11/18/18 at 12:00 Docusate Sodium (Colace) 100 mg BID PRN PO CONSTIPATION Last administered on 11/18/18 21:01; Admin Dose 100 MG; Start 11/18/18 at 12:00 ERLIN MILLER Nov 19, 2018 15:44
--- NOTE | 2018-11-19 16:28 | CONS ---
Assessment/Plan Assessment/Plan Assessment/Plan (Daily) 1. acute kidney injury due to prerenal azotemia + hemodynamics 2. Acute GI bleeding Upper 3. Acute blood loss anemia 4. h/o CKD III 5. h/o HTN 6. 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 Severe bradycardia with 2:1 block Plan: BUN/Cr 26/1.46, BP stable SNF placement in progress will follow up Consultation Date/Type/Reason Admit Date/Time Nov 09, 2018 at 13:16 Initial Consult Date 11/16/18 Type of Consult NEPHROLOGY Requesting Provider: IVONE LEON MD Date/Time of Note DATE: 11/19/18 TIME: 16:28 Exam/Review of Systems Exam Vitals Vital Signs Date Temp Pulse Resp B/P (MAP) Pulse Ox O2 O2 Flow FiO2 Time Delivery Rate 11/19/18 98.4 79 17 124/63 95 15:42 (83) 11/18/18 Room Air 04:07 Intake and Output 11/18/18 11/18/18 11/19/18 1515:00 23:00 07:00 IntakeIntake Total 750 ml 1250 ml OutputOutput Total 1400 ml 3000 ml BalanceBalance -650 ml -1750 ml Exam Constitutional: alert, awake Respiratory: clear to auscultation Cardiovascular: regular rate and rhythm, nl pulses Gastrointestinal: soft, non-tender Musculoskeletal: nl extremities to inspection Extremities: normal pulses Neurological: ENGINEERING CONSULTANT II-XII intact, nl mental status, nl speech, nl strength Results Result Diagram: 11/19/18 0453 11/19/18 0453 Results 24hrs Laboratory Tests Test 11/19/18 04:53 White Blood Count 6.5 Red Blood Count 3.15 L Hemoglobin 9.5 L Hematocrit 28.7 L Mean Corpuscular Volume 91.1 Mean Corpuscular Hemoglobin 30.2 Mean Corpuscular Hemoglobin Concent 33.1 Red Cell Distribution Width 13.9 Platelet Count 362 Mean Platelet Volume 9.1 Immature Granulocytes % 0.800 H Neutrophils % 65.7 Lymphocytes % 16.5 Monocytes % 12.5 H Eosinophils % 4.2 Basophils % 0.3 Nucleated Red Blood Cells % 0.0 Immature Granulocytes # 0.050 H Neutrophils # 4.3 Lymphocytes # 1.1 Monocytes # 0.8 Eosinophils # 0.3 Basophils # 0.0 Nucleated Red Blood Cells # 0.0 Sodium Level 139 Potassium Level 4.3 Chloride Level 107 Carbon Dioxide Level 23 Anion Gap 9 Blood Urea Nitrogen 26 H Creatinine 1.46 H Est Glomerular Filtrat Rate mL/min Glucose Level 90 Calcium Level 9.3 Medications Medication Current Medications Ondansetron HCl (Zofran Inj) 4 mg Q6H PRN IV NAUSEA AND/OR VOMITING; Start 11/09/18 at 19:30 Lorazepam (Ativan) 0.5 mg Q6H PRN IV AGITATION Last administered on 11/09/18 23:14; Admin Dose 0.5 MG; Start 11/09/18 at 19:30 Trazodone HCl (Desyrel) 100 mg HS PO Last administered on 11/18/18 21:00; Admin Dose 100 MG; Start 11/10/18 at 21:00 Hydralazine HCl (Apresoline) 10 mg Q4H PRN IV SBP>170; Start 11/12/18 at 18:30 Morphine Sulfate (morphine) 6 mg Q4H PRN PO SEVERE PAIN LEVEL 7-10 Last administered on 11/14/18 15:14; Admin Dose 6 MG; Start 11/13/18 at 22:00 Paroxetine HCl (Paxil) 20 mg DAILY PO Last administered on 11/19/18 08:44; Admin Dose 20 MG; Start 11/16/18 at 09:00 Acetaminophen (Tylenol Tab) 500 mg Q6H PRN PO MILD PAIN(1-3)OR ELEVATED TEMP Last administered on 11/17/18 23:57; Admin Dose 500 MG; Start 11/17/18 at 18:00 Guaifenesin/ Dextromethorphan (Robitussin Dm Liquid Cup) 10 ml Q4H PRN PO cough Last administered on 11/18/18 21:01; Admin Dose 10 ML; Start 11/18/18 at 12:00 Docusate Sodium (Colace) 100 mg BID PRN PO CONSTIPATION Last administered on 11/18/18 21:01; Admin Dose 100 MG; Start 11/18/18 at 12:00 Pantoprazole (Protonix Tab) 40 mg BID PO ; Start 11/19/18 at 21:00 MCKENNA ACEVES MD Nov 19, 2018 16:28
[2018-11-19] MEDS: traZODone 100 MG TAB PO SCH (20:40)
[2018-11-19] MEDS: PANTOPRAZOLE (EC) 40 MG TAB PO SCH (20:40)
--- NOTE | 2018-11-19 23:16 | CONS ---
Assessment/Plan Assessment/Plan Assessment/Plan (Daily) 1. acute kidney injury due to prerenal azotemia + hemodynamics 2. Acute GI bleeding Upper 3. Acute blood loss anemia 4. h/o CKD III 5. h/o HTN 6. 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 Severe bradycardia with 2:1 block Plan: seen in Tele floor, BUN/Cr improved to 1/4 today, continue current care uo - 1.6 L/24 hrs pt ole has CKD III due to HTN No need for renal US at this time since Cr improving Cardiology following For bradycardi and 2;1 block Plan of care julia Gonzalez Patient. Dw staff Consultation Date/Type/Reason Admit Date/Time Nov 09, 2018 at 1:16 pm Initial Consult Date 11/16/18 Type of Consult NEPHROLOGY Requesting Provider: IVONE LEON MD Date/Time of Note DATE: 11/19/18 TIME: 23:15 24 HR Interval Summary Free Text/Dictation Entry 11/18/2018 Exam/Review of Systems Exam Vitals Vital Signs Date Temp Pulse Resp B/P (MAP) Pulse Ox O2 O2 Flow FiO2 Time Delivery Rate 11/19/18 98.9 82 18 120/64 94 20:11 (82) 11/18/18 Room Air 04:07 Intake and Output 11/18/18 11/18/18 11/19/18 1515:00 23:00 07:00 IntakeIntake Total 750 ml 1250 ml OutputOutput Total 1400 ml 3000 ml BalanceBalance -650 ml -1750 ml Constitutional: alert, oriented, well developed Psych: nl mood/affect Eyes: EOMI, nl lids, nl sclera ENMT: nl external ears & nose Neck: non-tender Respiratory: clear to auscultation Cardiovascular: nl pulses, other Gastrointestinal: soft, non-tender Musculoskeletal: muscle weakness Extremities: normal pulses Neurological: nl mental status, nl speech Lymph: nontender Results Result Diagram: 11/19/1845211/19/18452 Results 24hrs Laboratory Tests Test 11/19/18 04:53 White Blood Count 6.5 Red Blood Count 3.15 L Hemoglobin 9.5 L Hematocrit 28.7 L Mean Corpuscular Volume 91.1 Mean Corpuscular Hemoglobin 30.2 Mean Corpuscular Hemoglobin Concent 33.1 Red Cell Distribution Width 13.9 Platelet Count 362 Mean Platelet Volume 9.1 Immature Granulocytes % 0.800 H Neutrophils % 65.7 Lymphocytes % 16.5 Monocytes % 12.5 H Eosinophils % 4.2 Basophils % 0.3 Nucleated Red Blood Cells % 0.0 Immature Granulocytes # 0.050 H Neutrophils # 4.3 Lymphocytes # 1.1 Monocytes # 0.8 Eosinophils # 0.3 Basophils # 0.0 Nucleated Red Blood Cells # 0.0 Sodium Level 139 Potassium Level 4.3 Chloride Level 107 Carbon Dioxide Level 23 Anion Gap 9 Blood Urea Nitrogen 26 H Creatinine 1.46 H Est Glomerular Filtrat Rate mL/min Glucose Level 90 Calcium Level 9.3 Medications Medication Current Medications Ondansetron HCl (Zofran Inj) 4 mg Q6H PRN IV NAUSEA AND/OR VOMITING; Start 11/09/18 at 19:30 Lorazepam (Ativan) 0.5 mg Q6H PRN IV AGITATION Last administered on 11/09/18at 23:14; Admin Dose 0.5 MG; Start 11/09/18 at 19:30 Trazodone HCl (Desyrel) 100 mg HS PO Last administered on 11/19/18 20:40; Admin Dose 100 MG; Start 11/10/18 at 21:00 Hydralazine HCl (Apresoline) 10 mg Q4H PRN IV SBP>170; Start 11/12/18 at 18:30 Morphine Sulfate (morphine) 6 mg Q4H PRN PO SEVERE PAIN LEVEL 7-10 Last administered on 11/14/18at 15:14; Admin Dose 6 MG; Start 11/13/18 at 22:00 Paroxetine HCl (Paxil) 20 mg DAILY PO Last administered on 11/19/18at 08:44; Admin Dose 20 MG; Start 11/16/18 at 09:00 Acetaminophen (Tylenol Tab) 500 mg Q6H PRN PO MILD PAIN(1-3)OR ELEVATED TEMP Last administered on 11/17/18at 23:57; Admin Dose 500 MG; Start 11/17/18 at 18:00 Guaifenesin/ Dextromethorphan (Robitussin Dm Liquid Cup) 10 ml Q4H PRN PO cough Last administered on 11/18/18 21:01; Admin Dose 10 ML; Start 11/18/18 at 12:00 Docusate Sodium (Colace) 100 mg BID PRN PO CONSTIPATION Last administered on 11/18/18at 21:01; Admin Dose 100 MG; Start 11/18/18 at 12:00 Pantoprazole (Protonix Tab) 40 mg BID PO Last administered on 11/19/18at 20:40; Admin Dose 40 MG; Start 11/19/18 at 21:00 ERLIN MILLER Nov 19, 2018 23:16
[2018-11-20] VITALS (11 sets, daily range): BP systolic 113–128; BP diastolic 56–66; PULSE 69–90; RESP 18–22
[2018-11-20] MEDS: PANTOPRAZOLE (EC) 40 MG TAB PO SCH ×2 (09:06→21:05)
[2018-11-20] MEDS: PAROXETINE 20 MG TAB PO SCH (09:06)
--- NOTE | 2018-11-20 09:11 | CONS ---
Assessment/Plan Assessment/Plan Assessment/Plan (Daily) 1. acute kidney injury due to prerenal azotemia + hemodynamics 2. Acute GI bleeding Upper 3. Acute blood loss anemia 4. h/o CKD III 5. h/o HTN 6. 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 Severe bradycardia with 2:1 block Plan: BUN/Cr 28/1.5, BP stable SNF placement in progress will follow up Consultation Date/Type/Reason Admit Date/Time Nov 09, 2018 at 13:16 Initial Consult Date 11/16/18 Type of Consult NEPHROLOGY Requesting Provider: IVONE LEON MD Date/Time of Note DATE: 11/20/18 TIME: 09:11 Exam/Review of Systems Exam Vitals Vital Signs Date Temp Pulse Resp B/P (MAP) Pulse Ox O2 O2 Flow FiO2 Time Delivery Rate 11/20/18 90 08:36 11/20/18 98.0 22 128/60 96 Nasal 2.0 07:57 (82) Cannula Intake and Output 11/19/18 11/19/18 11/20/18 1515:00 23:00 07:00 OutputOutput Total 950 ml BalanceBalance -950 ml Exam Constitutional: alert, awake Respiratory: clear to auscultation Cardiovascular: regular rate and rhythm, nl pulses Gastrointestinal: soft, non-tender Musculoskeletal: nl extremities to inspection Extremities: normal pulses Neurological: INTERNAL CONTROL CONSULTANT II-XII intact, nl mental status, nl speech, nl strength Results Result Diagram: 11/19/18 0453 11/19/18 0453 Medications Medication Current Medications Ondansetron HCl (Zofran Inj) 4 mg Q6H PRN IV NAUSEA AND/OR VOMITING; Start 11/09/18 at 19:30 Lorazepam (Ativan) 0.5 mg Q6H PRN IV AGITATION Last administered on 11/09/18at 23:14; Admin Dose 0.5 MG; Start 11/09/18 at 19:30 Trazodone HCl (Desyrel) 100 mg HS PO Last administered on 11/19/18at 20:40; Admin Dose 100 MG; Start 11/10/18 at 21:00 Hydralazine HCl (Apresoline) 10 mg Q4H PRN IV SBP>170; Start 11/12/18 at 18:30 Morphine Sulfate (morphine) 6 mg Q4H PRN PO SEVERE PAIN LEVEL 7-10 Last administered on 11/14/18 15:14; Admin Dose 6 MG; Start 11/13/18 at 22:00 Paroxetine HCl (Paxil) 20 mg DAILY PO Last administered on 11/20/18 09:06; Admin Dose 20 MG; Start 11/16/18 at 09:00 Acetaminophen (Tylenol Tab) 500 mg Q6H PRN PO MILD PAIN(1-3)OR ELEVATED TEMP Last administered on 11/17/18 23:57; Admin Dose 500 MG; Start 11/17/18 at 18:00 Guaifenesin/ Dextromethorphan (Robitussin Dm Liquid Cup) 10 ml Q4H PRN PO cough Last administered on 11/18/18 21:01; Admin Dose 10 ML; Start 11/18/18 at 12:00 Docusate Sodium (Colace) 100 mg BID PRN PO CONSTIPATION Last administered on 11/18/18 21:01; Admin Dose 100 MG; Start 11/18/18 at 12:00 Pantoprazole (Protonix Tab) 40 mg BID PO Last administered on 11/20/18 09:06; Admin Dose 40 MG; Start 11/19/18 at 21:00 MCKENNA ACEVES MD Nov 20, 2018 09:11
--- NOTE | 2018-11-20 12:20 | PN ---
Date/Time of Note Date/Time of Note DATE: 11/20/18 TIME: 12:20 Assessment/Plan VTE Prophylaxis Risk score (from Nsg)>0 risk: 4 SCD applied (from Nsg): Yes Lines/Catheters IV Catheter Type (from Nrsg): Peripheral IV Urinary Cath still in place: Yes Assessment/Plan Result Diagram: 11/19/18 0453 11/19/18 0453 Exam/Review of Systems Exam Vitals Vital Signs Date Temp Pulse Resp B/P (MAP) Pulse Ox O2 O2 Flow FiO2 Time Delivery Rate 11/20/18 98.0 79 22 126/66 96 Room Air 11:58 (86) 11/20/18 2.0 07:57 Intake and Output 11/19/18 11/19/18 11/20/18 1515:00 23:00 07:00 OutputOutput Total 950 ml BalanceBalance -950 ml Medications Medication Current Medications Ondansetron HCl (Zofran Inj) 4 mg Q6H PRN IV NAUSEA AND/OR VOMITING; Start 11/09/18 at 19:30 Lorazepam (Ativan) 0.5 mg Q6H PRN IV AGITATION Last administered on 11/09/18at 23:14; Admin Dose 0.5 MG; Start 11/09/18 at 19:30 Trazodone HCl (Desyrel) 100 mg HS PO Last administered on 11/19/18at 20:40; Ad min Dose 100 MG; Start 11/10/18 at 21:00 Hydralazine HCl (Apresoline) 10 mg Q4H PRN IV SBP>170; Start 11/12/18 at 18:30 Morphine Sulfate (morphine) 6 mg Q4H PRN PO SEVERE PAIN LEVEL 7-10 Last admini stered on 11/14/18at 15:14; Admin Dose 6 MG; Start 11/13/18 at 22:00 Paroxetine HCl (Paxil) 20 mg DAILY PO Last administered on 11/20/18at 09:06; Admin Dose 20 MG; Start 11/16/18 at 09:00 Acetaminophen (Tylenol Tab) 500 mg Q6H PRN PO MILD PAIN(1-3)OR ELEVATED TEMP Last administered on 11/17/18at 23:57; Admin Dose 500 MG; Start 11/17/18 at 18:00 Guaifenesin/ Dextromethorphan (Robitussin Dm Liquid Cup) 10 ml Q4H PRN PO cough Last administered on 11/18/18at 21:01; Admin Dose 10 ML; Start 11/18/18 at 12:00 Docusate Sodium (Colace) 100 mg BID PRN PO CONSTIPATION Last administered on 11/18/18at 21:01; Admin Dose 100 MG; Start 11/18/18 at 12:00 Pantoprazole (Protonix Tab) 40 mg BID PO Last administered on 11/20/18at 09:06; Admin Dose 40 MG; Start 11/19/18 at 21:00 ERLIN MILLER Nov 20, 2018 12:20
[2018-11-20] MEDS: morphine LIQ (10 MG/5 ML) CUP PO PRN ×2 (12:40→21:06)
[2018-11-20] MEDS: traZODone 100 MG TAB PO SCH (21:05)
[2018-11-20] MEDS: DOCUSATE SODIUM 100 MG CAP PO PRN (21:05)
[2018-11-20] MEDS: GUAIFENESIN/DM 5ML CUP PO PRN (21:06)
[2018-11-21] VITALS (9 sets, daily range): BP systolic 106–130; BP diastolic 54–67; PULSE 70–91; RESP 17–20
[2018-11-21] MEDS: PAROXETINE 20 MG TAB PO SCH (08:51)
[2018-11-21] MEDS: PANTOPRAZOLE (EC) 40 MG TAB PO SCH ×2 (08:51→21:00)
--- NOTE | 2018-11-21 09:18 | CONS ---
Assessment/Plan Assessment/Plan Assessment/Plan (Daily) 1. acute kidney injury due to prerenal azotemia + hemodynamics 2. Acute GI bleeding Upper 3. Acute blood loss anemia 4. h/o CKD III 5. h/o HTN 6. 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 Severe bradycardia with 2:1 block Plan: BUN/Cr 28/1.56, BP stable SNF placement in progress - accepted at [facility] will follow up Consultation Date/Type/Reason Admit Date/Time Nov 09, 2018 at 13:16 Initial Consult Date 11/16/18 Type of Consult NEPHROLOGY Requesting Provider: IVONE LEON MD Date/Time of Note DATE: 11/21/18 TIME: 09:18 Exam/Review of Systems Exam Vitals Vital Signs Date Temp Pulse Resp B/P (MAP) Pulse Ox O2 O2 Flow FiO2 Time Delivery Rate 11/21/18 88 08:23 11/21/18 98.9 18 119/56 92 07:39 (77) 11/20/18 Room Air 11:58 11/20/18 2.0 07:57 Intake and Output 11/20/18 11/20/18 11/21/18 1515:00 23:00 07:00 IntakeIntake Total 370 ml 300 ml OutputOutput Total 780 ml 550 ml BalanceBalance -410 ml -250 ml Exam Constitutional: alert, awake Respiratory: clear to auscultation Cardiovascular: regular rate and rhythm, nl pulses Gastrointestinal: soft, non-tender Musculoskeletal: nl extremities to inspection Extremities: normal pulses Neurological: GHOST WRITER II-XII intact, nl mental status, nl speech, nl strength Results Result Diagram: 11/21/18 0520 11/21/18 0520 Results 24hrs Laboratory Tests Test 11/20/18 14:08 11/21/18 05:20 White Blood Count 4.2 #L 4.8 Red Blood Count 3.15 L 3.40 L Hemoglobin 9.3 L 10.1 L Hematocrit 28.1 L 30.2 L Mean Corpuscular Volume 89.2 88.8 Mean Corpuscular Hemoglobin 29.5 29.7 Mean Corpuscular Hemoglobin Concent 33.1 33.4 Red Cell Distribution Width 13.8 13.9 Platelet Count 351 341 Mean Platelet Volume 8.8 9.0 Immature Granulocytes % 0.700 H 0.400 Neutrophils % 60.7 63.9 Lymphocytes % 18.2 17.9 Monocytes % 14.6 H 13.4 H Eosinophils % 5.3 4.0 Basophils % 0.5 0.4 Nucleated Red Blood Cells % 0.0 0.0 Immature Granulocytes # 0.030 0.020 Neutrophils # 2.5 3.0 Lymphocytes # 0.8 0.9 Monocytes # 0.6 0.6 Eosinophils # 0.2 0.2 Basophils # 0.0 0.0 Nucleated Red Blood Cells # 0.0 0.0 Sodium Level 138 138 Potassium Level 4.2 4.2 Chloride Level 103 104 Carbon Dioxide Level 23 23 Anion Gap 12 11 Blood Urea Nitrogen 28 H 28 H Creatinine 1.50 H 1.56 H Est Glomerular Filtrat Rate mL/min Glucose Level 120 95 Calcium Level 9.5 9.6 Medications Medication Current Medications Ondansetron HCl (Zofran Inj) 4 mg Q6H PRN IV NAUSEA AND/OR VOMITING; Start 11/09/18 at 19:30 Lorazepam (Ativan) 0.5 mg Q6H PRN IV AGITATION Last administered on 11/09/18at 23:14; Admin Dose 0.5 MG; Start 11/09/18 at 19:30 Trazodone HCl (Desyrel) 100 mg HS PO Last administered on 11/20/18 21:05; Admin Dose 100 MG; Start 11/10/18 at 21:00 Hydralazine HCl (Apresoline) 10 mg Q4H PRN IV SBP>170; Start 11/12/18 at 18:30 Morphine Sulfate (morphine) 6 mg Q4H PRN PO SEVERE PAIN LEVEL 7-10 Last administered on 11/20/18at 21:06; Admin Dose 6 MG; Start 11/13/18 at 22:00 Paroxetine HCl (Paxil) 20 mg DAILY PO Last administered on 11/21/18 08:51; Admin Dose 20 MG; Start 11/16/18 at 09:00 Acetaminophen (Tylenol Tab) 500 mg Q6H PRN PO MILD PAIN(1-3)OR ELEVATED TEMP Last administered on 11/17/18 23:57; Admin Dose 500 MG; Start 11/17/18 at 18:00 Guaifenesin/ Dextromethorphan (Robitussin Dm Liquid Cup) 10 ml Q4H PRN PO cough Last administered on 11/20/18at 21:06; Admin Dose 10 ML; Start 11/18/18 at 12:00 Docusate Sodium (Colace) 100 mg BID PRN PO CONSTIPATION Last administered on 11/20/18at 21:05; Admin Dose 100 MG; Start 11/18/18 at 12:00 Pantoprazole (Protonix Tab) 40 mg BID PO Last administered on 11/21/18 08:51; Admin Dose 40 MG; Start 11/19/18 at 21:00 MCKENNA ACEVES MD Nov 21, 2018 09:18
--- NOTE | 2018-11-21 12:45 | CONS ---
Assessment/Plan Assessment/Plan Hospital Course (Demo Recall) IMPRESSION: 1. Heart block, episodes of 2:1 block with heart rates down to the high 30s and 40s. Status procedure on beta elsa, stable blood pressure.- ? due to anesthesia/No recurrence since BB stopped 2. Hypertension, under well controlled on a beta elsa at this time. 3. Abnormal echocardiogram with inferior Q-waves, but no evidence of significant conduction system disease. 4. Gastrointestinal bleed, status post endoscopy today. 5. Syncope, likely related to the patient's GI bleed but must rule out associated syncope due to arrhythmia, heart block. 6. Anemia, status post transfusions. 7. Renal failure, renal insufficiency. 8. Cough Recc: -Tele -Continue to follow BP off of antihypertenisves at this time -Continue PPI -ambulation/PT -Continue cough suppressant for symptomatic relief -Follow purchase order checker/volume status clsoely Consultation Date/Type/Reason Admit Date/Time Nov 09, 2018 at 13:16 Initial Consult Date 11/13/18 Type of Consult Cardiology Reason for Consultation Heart Block Requesting Provider: IVONE LEON MD Date/Time of Note DATE: 11/21/18 TIME: 12:43 Exam/Review of Systems Vital Signs Vitals Vital Signs Date Temp Pulse Resp B/P (MAP) Pulse Ox O2 O2 Flow FiO2 Time Delivery Rate 11/21/18 84 12:14 11/21/18 98.5 20 124/65 92 11:24 (84) 11/20/18 Room Air 11:58 11/20/18 2.0 07:57 Intake and Output 11/20/18 11/20/18 11/21/18 1515:00 23:00 07:00 IntakeIntake Total 370 ml 300 ml OutputOutput Total 780 ml 550 ml BalanceBalance -410 ml -250 ml Exam Exam Review of Systems: CONSTITUTIONAL: No fevers, chills. PULMONARY: No sob CARDIOVASCULAR: No chest pain/palpitations GASTROINTESTINAL: No nausea/vomiting. GENITOURINARY: No hematuria/dysuria. MUSCULOSKELETAL: No myagias/arthalgias. PSYCHIATRIC: The patient denies depression. NEUROLOGIC: No weakness Constitutional: alert Psych: no complaints Head: normocephalic ENMT: mucosa pink and moist Neck: supple, jvd (9 cm water) Respiratory: diminished breath sounds Cardiovascular: regular rate and rhythm Gastrointestinal: soft, non-tender Musculoskeletal: muscle tone (normal) Extremities: edema (none) Neurological: other (No focal deficits) Labs Result Diagram: 11/21/1851911/21/18 0520 Results 24hrs Laboratory Tests Test 11/20/18 14:08 11/21/18 05:20 White Blood Count 4.2 #L 4.8 Red Blood Count 3.15 L 3.40 L Hemoglobin 9.3 L 10.1 L Hematocrit 28.1 L 30.2 L Mean Corpuscular Volume 89.2 88.8 Mean Corpuscular Hemoglobin 29.5 29.7 Mean Corpuscular Hemoglobin Concent 33.1 33.4 Red Cell Distribution Width 13.8 13.9 Platelet Count 351 341 Mean Platelet Volume 8.8 9.0 Immature Granulocytes % 0.700 H 0.400 Neutrophils % 60.7 63.9 Lymphocytes % 18.2 17.9 Monocytes % 14.6 H 13.4 H Eosinophils % 5.3 4.0 Basophils % 0.5 0.4 Nucleated Red Blood Cells % 0.0 0.0 Immature Granulocytes # 0.030 0.020 Neutrophils # 2.5 3.0 Lymphocytes # 0.8 0.9 Monocytes # 0.6 0.6 Eosinophils # 0.2 0.2 Basophils # 0.0 0.0 Nucleated Red Blood Cells # 0.0 0.0 Sodium Level 138 138 Potassium Level 4.2 4.2 Chloride Level 103 104 Carbon Dioxide Level 23 23 Anion Gap 12 11 Blood Urea Nitrogen 28 H 28 H Creatinine 1.50 H 1.56 H Est Glomerular Filtrat Rate mL/min Glucose Level 120 95 Calcium Level 9.5 9.6 Medications Medications Current Medications Ondansetron HCl (Zofran Inj) 4 mg Q6H PRN IV NAUSEA AND/OR VOMITING; Start 11/09/18 at 19:30 Lorazepam (Ativan) 0.5 mg Q6H PRN IV AGITATION Last administered on 11/09/18at 23:14; Admin Dose 0.5 MG; Start 11/09/18 at 19:30 Trazodone HCl (Desyrel) 100 mg HS PO Last administered on 11/20/18at 21:05; Admin Dose 100 MG; Start 11/10/18 at 21:00 Hydralazine HCl (Apresoline) 10 mg Q4H PRN IV SBP>170; Start 11/12/18 at 18:30 Morphine Sulfate (morphine) 6 mg Q4H PRN PO SEVERE PAIN LEVEL 7-10 Last administered on 11/20/18 21:06; Admin Dose 6 MG; Start 11/13/18 at 22:00 Paroxetine HCl (Paxil) 20 mg DAILY PO Last administered on 11/21/18 08:51; Admin Dose 20 MG; Start 11/16/18 at 09:00 Acetaminophen (Tylenol Tab) 500 mg Q6H PRN PO MILD PAIN(1-3)OR ELEVATED TEMP Last administered on 11/17/18 23:57; Admin Dose 500 MG; Start 11/17/18 at 18:00 Guaifenesin/ Dextromethorphan (Robitussin Dm Liquid Cup) 10 ml Q4H PRN PO cough Last administered on 11/20/18 21:06; Admin Dose 10 ML; Start 11/18/18 at 12:00 Docusate Sodium (Colace) 100 mg BID PRN PO CONSTIPATION Last administered on 11/20/18 21:05; Admin Dose 100 MG; Start 11/18/18 at 12:00 Pantoprazole (Protonix Tab) 40 mg BID PO Last administered on 11/21/18 08:51; Admin Dose 40 MG; Start 11/19/18 at 21:00 TATYANA LEGER Nov 21, 2018 12:45
--- NOTE | 2018-11-21 16:31 | CONS ---
Date/Time of Note Date/Time of Note DATE: 11/21/18 TIME: 16:28 Consult Date/Type/Reason Admit Date Nov 09, 2018 at 13:16 Type of Consult Psych Ordering Provider: IVONE LEON MD Subjective Patient is a 78-year-old male evaluated today. On a [id number] evaluation, patient continues to denies suicidal ideation denies homicidal ideation denies feeling of hopelessness and helplessness states his main problem is social isolation and he wants to remain on current medications. Explained risk and benefits of medication and patient verbalized understanding Objective Patient Appearance: Relaxed Voice Loudness: Moderately Loud Mood and Affect Description: Calm Mood or Affect: Cooperative Speech Pattern: Clear Thought Process: Intact Hallucination Type: None Delusion Description: Not Present Assessment/Plan Recommendations Continue current medications patient's currently does not meets criteria for 5150 hold ADALGISA TAN NP Nov 21, 2018 16:31
[2018-11-21] MEDS: traZODone 100 MG TAB PO SCH (21:00)
--- NOTE | 2018-11-21 22:53 | PN ---
DATE: 11/21/2018 SUBJECTIVE: Follow up on suicidal ideation and history of suicidal attempts, recent upper gastrointe stinal bleed, hypertension, chronic low back pain, anxiety, and depression. The patient remains awak e and alert. Occasionally refuses to eat. Denies any chest pain. No reported fever or chills. No reported abdominal pain, no reported melena, no reported hematemesis, and no reported cough. No numb ness or tingling in lower extremities. PHYSICAL EXAMINATION: GENERAL: The patient is awake and alert. VITAL SIGNS: Temperature 98, pulse 82, respirations 17, blood pressure 106/54, and O2 saturation 91% to 92% on room air. HEENT: No eye discharge or redness. Conjunctivae and lids normal. Oropharynx clear. NECK: Supple. No thyromegaly. CHEST: Fairly clear. No use of accessory muscles. CARDIOVASCULAR: S1 and S2 normal. No murmur. ABDOMEN: Soft and nontender. Bowel sounds present. EXTREMITIES: No leg edema. NEUROLOGIC: The patient is awake, alert, and fairly oriented with no gross focal deficit. LABORATORY DATA: Done this morning, WBC 4.8, hemoglobin 10.1, and platelets 341. Sodium 138, potass ium 4.2, BUN 28, creatinine 1.5, glucose 95, and calcium 9.6. IMPRESSION: 1. Suicidal ideation and attempts in the past. The patient is waiting for a psych placement althoug h today, he denies any suicidal ideation or feeling of hopelessness. 2. Hypertension. Blood pressure well controlled. Continue to monitor off medication. 3. Anxiety and depression. Continue trazodone, Paxil, and Ativan. 4. Upper gastrointestinal bleed. Negative H. pylori. Continue Protonix. 5. Acute kidney injury. . 6. Chronic kidney disease. Creatinine stable. PLAN: No further recommendation. We will transfer him out of tele today to med-surg. I spoke with the patient's sister, Katiana, and updated her regarding plan of care. Dictated By: IVONE LEON MD AB/EDMUND Conf#: [id number] DID#: [id number] CC: RUCHI STARKS MD; DOMINICK DIANA NP; IVONE LEON MD; CHUCK TREJO MD; BONY ZHENG MD;*EndCC*
[2018-11-22 00:20] VITALS: BP 112/64; PULSE 90; RESP 20
[2018-11-22 04:00] VITALS: BP 118/67; PULSE 72; RESP 19
[2018-11-22 08:05] VITALS: BP 121/59; PULSE 76; RESP 22
[2018-11-22] MEDS: PANTOPRAZOLE (EC) 40 MG TAB PO SCH (08:12)
[2018-11-22] MEDS: PAROXETINE 20 MG TAB PO SCH (08:12)
--- NOTE | 2018-11-22 09:59 | PN ---
Date/Time of Note Date/Time of Note DATE: 11/22/18 TIME: 09:59 Assessment/Plan VTE Prophylaxis Risk score (from Ns)>0 risk: 7 SCD applied (from Ns): No Lines/Catheters IV Catheter Type (from Nrs): Peripheral IV Urinary Cath still in place: Yes Assessment/Plan Assessment/Plan 1. Suicidal ideation and attempts in the past. The patient is waiting for a psych placement although today, he denies any suicidal ideation or feeling of hopelessness. 2. Hypertension. Blood pressure well controlled. Continue to monitor off medication. 3. Anxiety and depression. Continue trazodone, Paxil, and Ativan. 4. Upper gastrointestinal bleed. Negative H. pylori. Continue Protonix. 5. Acute kidney injury. . 6. Chronic kidney disease. Creatinine elevated. Result Diagram: 11/22/18 0545 11/22/18 0545 Results 24hrs Laboratory Tests Test 11/22/18 05:45 White Blood Count 4.6 L Red Blood Count 3.47 L Hemoglobin 10.3 L Hematocrit 31.3 L Mean Corpuscular Volume 90.2 Mean Corpuscular Hemoglobin 29.7 Mean Corpuscular Hemoglobin Concent 32.9 Red Cell Distribution Width 13.7 Platelet Count 344 Mean Platelet Volume 9.0 Immature Granulocytes % 0.600 H Neutrophils % 49.0 Lymphocytes % 27.3 Monocytes % 17.5 H Eosinophils % 5.4 Basophils % 0.2 Nucleated Red Blood Cells % 0.0 Immature Granulocytes # 0.030 Neutrophils # 2.3 Lymphocytes # 1.3 Monocytes # 0.8 Eosinophils # 0.3 Basophils # 0.0 Nucleated Red Blood Cells # 0.0 Sodium Level 138 Potassium Level 5.1 Chloride Level 103 Carbon Dioxide Level 24 Anion Gap 11 Blood Urea Nitrogen 31 H Creatinine 1.75 H Est Glomerular Filtrat Rate mL/min Glucose Level 92 Calcium Level 9.8 Exam/Review of Systems Exam Vitals Vital Signs Date Temp Pulse Resp B/P (MAP) Pulse Ox O2 O2 Flow FiO2 Time Delivery Rate 11/22/18 98.0 76 22 121/59 96 Room Air 08:05 (79) 11/20/18 2.0 07:57 Intake and Output 11/21/18 11/21/18 11/22/18 1515:00 23:00 07:00 IntakeIntake Total 300 ml 250 ml OutputOutput Total 800 ml 450 ml BalanceBalance -500 ml -200 ml Results Results 24hrs Laboratory Tests Test 11/22/18 05:45 White Blood Count 4.6 L Red Blood Count 3.47 L Hemoglobin 10.3 L Hematocrit 31.3 L Mean Corpuscular Volume 90.2 Mean Corpuscular Hemoglobin 29.7 Mean Corpuscular Hemoglobin Concent 32.9 Red Cell Distribution Width 13.7 Platelet Count 344 Mean Platelet Volume 9.0 Immature Granulocytes % 0.600 H Neutrophils % 49.0 Lymphocytes % 27.3 Monocytes % 17.5 H Eosinophils % 5.4 Basophils % 0.2 Nucleated Red Blood Cells % 0.0 Immature Granulocytes # 0.030 Neutrophils # 2.3 Lymphocytes # 1.3 Monocytes # 0.8 Eosinophils # 0.3 Basophils # 0.0 Nucleated Red Blood Cells # 0.0 Sodium Level 138 Potassium Level 5.1 Chloride Level 103 Carbon Dioxide Level 24 Anion Gap 11 Blood Urea Nitrogen 31 H Creatinine 1.75 H Est Glomerular Filtrat Rate mL/min Glucose Level 92 Calcium Level 9.8 Medications Medication Current Medications Ondansetron HCl (Zofran Inj) 4 mg Q6H PRN IV NAUSEA AND/OR VOMITING; Start 11/09/18 at 19:30 Lorazepam (Ativan) 0.5 mg Q6H PRN IV AGITATION Last administered on 11/09/18at 23:14; Admin Dose 0.5 MG; Start 11/09/18 at 19:30 Trazodone HCl (Desyrel) 100 mg HS PO Last administered on 11/20/18 21:05; Admin Dose 100 MG; Start 11/10/18 at 21:00 Hydralazine HCl (Apresoline) 10 mg Q4H PRN IV SBP>170; Start 11/12/18 at 18:30 Morphine Sulfate (morphine) 6 mg Q4H PRN PO SEVERE PAIN LEVEL 7-10 Last administered on 11/20/18 21:06; Admin Dose 6 MG; Start 11/13/18 at 22:00 Paroxetine HCl (Paxil) 20 mg DAILY PO Last administered on 11/22/18 08:12; Admin Dose 20 MG; Start 11/16/18 at 09:00 Acetaminophen (Tylenol Tab) 500 mg Q6H PRN PO MILD PAIN(1-3)OR ELEVATED TEMP Last administered on 11/17/18 23:57; Admin Dose 500 MG; Start 11/17/18 at 18:00 Guaifenesin/ Dextromethorphan (Robitussin Dm Liquid Cup) 10 ml Q4H PRN PO cough Last administered on 11/20/18 21:06; Admin Dose 10 ML; Start 11/18/18 at 12:00 Docusate Sodium (Colace) 100 mg BID PRN PO CONSTIPATION Last administered on 11/20/18 21:05; Admin Dose 100 MG; Start 11/18/18 at 12:00 Pantoprazole (Protonix Tab) 40 mg BID PO Last administered on 11/22/18 08:12; Admin Dose 40 MG; Start 11/19/18 at 21:00 ERLIN MILLER Nov 22, 2018 09:59
[2018-11-22 10:18] VITALS: BP 135/65; PULSE 68; RESP 18
--- NOTE | 2018-11-22 10:28 | CONS ---
Assessment/Plan Assessment/Plan Assessment/Plan (Daily) 1. acute kidney injury due to prerenal azotemia + hemodynamics 2. Acute GI bleeding Upper 3. Acute blood loss anemia 4. h/o CKD III 5. h/o HTN 6. 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 Severe bradycardia with 2:1 block Plan: BUN/Cr 31/1.75 BP stable SNF placement in progress - accepted at [facility] will follow up Consultation Date/Type/Reason Admit Date/Time Nov 09, 2018 at 13:16 Initial Consult Date 11/16/18 Type of Consult NEPHROLOGY Requesting Provider: IVONE LEON MD Date/Time of Note DATE: 11/22/18 TIME: 10:28 Exam/Review of Systems Exam Vitals Vital Signs Date Temp Pulse Resp B/P (MAP) Pulse Ox O2 O2 Flow FiO2 Time Delivery Rate 11/22/18 98.8 68 18 135/65 92 Room Air 10:18 (88) 11/20/18 2.0 07:57 Intake and Output 11/21/18 11/21/18 11/22/18 1515:00 23:00 07:00 IntakeIntake Total 300 ml 250 ml OutputOutput Total 800 ml 450 ml BalanceBalance -500 ml -200 ml Results Result Diagram: 11/22/18 0545 11/22/18 0545 Results 24hrs Laboratory Tests Test 11/22/18 05:45 White Blood Count 4.6 L Red Blood Count 3.47 L Hemoglobin 10.3 L Hematocrit 31.3 L Mean Corpuscular Volume 90.2 Mean Corpuscular Hemoglobin 29.7 Mean Corpuscular Hemoglobin Concent 32.9 Red Cell Distribution Width 13.7 Platelet Count 344 Mean Platelet Volume 9.0 Immature Granulocytes % 0.600 H Neutrophils % 49.0 Lymphocytes % 27.3 Monocytes % 17.5 H Eosinophils % 5.4 Basophils % 0.2 Nucleated Red Blood Cells % 0.0 Immature Granulocytes # 0.030 Neutrophils # 2.3 Lymphocytes # 1.3 Monocytes # 0.8 Eosinophils # 0.3 Basophils # 0.0 Nucleated Red Blood Cells # 0.0 Sodium Level 138 Potassium Level 5.1 Chloride Level 103 Carbon Dioxide Level 24 Anion Gap 11 Blood Urea Nitrogen 31 H Creatinine 1.75 H Est Glomerular Filtrat Rate mL/min Glucose Level 92 Calcium Level 9.8 Medications Medication Current Medications Ondansetron HCl (Zofran Inj) 4 mg Q6H PRN IV NAUSEA AND/OR VOMITING; Start at 19:30 Lorazepam (Ativan) 0.5 mg Q6H PRN IV AGITATION Last administered on 11/09/18 23:14; Admin Dose 0.5 MG; Start 11/09/18 at 19:30 Trazodone HCl (Desyrel) 100 mg HS PO Last administered on 11/20/18 21:05; Admin Dose 100 MG; Start 11/10/18 at 21:00 Hydralazine HCl (Apresoline) 10 mg Q4H PRN IV SBP>170; Start 11/12/18 at 18:30 Morphine Sulfate (morphine) 6 mg Q4H PRN PO SEVERE PAIN LEVEL 7-10 Last administered on 11/20/18 21:06; Admin Dose 6 MG; Start 11/13/18 at 22:00 Paroxetine HCl (Paxil) 20 mg DAILY PO Last administered on 11/22/18 08:12; Admin Dose 20 MG; Start 11/16/18 at 09:00 Acetaminophen (Tylenol Tab) 500 mg Q6H PRN PO MILD PAIN(1-3)OR ELEVATED TEMP Last administered on 11/17/18 23:57; Admin Dose 500 MG; Start 11/17/18 at 18:00 Guaifenesin/ Dextromethorphan (Robitussin Dm Liquid Cup) 10 ml Q4H PRN PO cough Last administered on 11/20/18 21:06; Admin Dose 10 ML; Start 11/18/18 at 12:00 Docusate Sodium (Colace) 100 mg BID PRN PO CONSTIPATION Last administered on 11/20/18 21:05; Admin Dose 100 MG; Start 11/18/18 at 12:00 Pantoprazole (Protonix Tab) 40 mg BID PO Last administered on 11/22/18 08:12; Admin Dose 40 MG; Start 11/19/18 at 21:00 MCKENNA ACEVES MD Nov 22, 2018 10:28
[2018-11-22 11:56] VITALS: BP 123/70; PULSE 71; RESP 22
--- NOTE | 2018-11-22 12:03 | PDOCDIS ---
Discharge Instructions CONDITION [id number] Patient Condition: [id number] Stable HOME CARE INSTRUCTIONS: [id number] Diet Instructions: [id number] ACTIVITY: [id number] Activity Restrictions: [id number] Slowly Increase Activity Rest between Activity Avoid heavy lifting Do not Drive Do not operate Machinery Do not operate Power Tool Avoid Heavy Housework [id number] Bathing Restrictions: [id number] Sponge Bath FOLLOW UP/APPOINTMENTS Follow-up Plan Fu with PMD x 1 week Fu WITH gi RECOMMENDED Call 911 or transfer to ER/ hospiatl if symptoms gert worse Dw Dr Berrios/STAFF ERLIN MILLER Nov 22, 2018 12:03
--- NOTE | 2018-11-22 12:05 | DS ---
Date/Time of Note Date/Time of Note DATE: 11/22/18 TIME: 12:05 Discharge Summary Admission/Discharge Info Admit Date/Time Nov 09, 2018 at 13:16 Discharge Date/Time Home Meds Active Scripts Trazodone Hcl* (Trazodone Hcl*) 100 Mg Tablet, 100 MG PO QHS, #10 TAB Prov:KEVIN BOSWELL PA-C 04/23/18 Hydrocodone Bit/Acetaminophen (Anexsia 5-325 Mg Tablet) 1 Tab Tablet, 1 TAB PO Q4H PRN for mild pain, #30 TAB Prov:KYLIE COBURN 04/12/16 Reported Medications Atenolol* (Atenolol*) 25 Mg Tablet, 25 MG PO DAILY, #30 TAB 04/08/16 Escitalopram Oxalate* (Escitalopram Oxalate*) 10 Mg Tablet, 10 MG PO DAILY, #30 TAB 04/08/16 Lorazepam* (Lorazepam*) 0.5 Mg Tablet, 0.5 MG PO Q6, TAB 04/08/16 Follow-up Plan Fu with PMD x 1 week Fu WITH gi RECOMMENDED Call 911 or transfer to ER/ hospiatl if symptoms gert worse Dw Dr Berrios/STAFF Primary Care Provider Brandan Berrios MD Pending Labs Laboratory Tests Test 11/22/18 05:45 White Blood Count 4.6 10^3/ul (4.8-10.8) Red Blood Count 3.47 10^6/ul (4.70-6.10) Hemoglobin 10.3 g/dl (14.0-18.0) Hematocrit 31.3 % (42.0-52.0) Mean Corpuscular Volume 90.2 fl (82.0-101.0) Mean Corpuscular Hemoglobin 29.7 pg (29.0-33.0) Mean Corpuscular Hemoglobin Concent 32.9 g/dl (32.0-37.0) Red Cell Distribution Width 13.7 % (11.5-14.5) Platelet Count 344 10^3/UL (140-415) Mean Platelet Volume 9.0 fl (7.4-10.4) Immature Granulocytes % 0.600 % (0.001-0.429) Neutrophils % 49.0 % (39.0-77.0) Lymphocytes % 27.3 % (15.0-51.0) Monocytes % 17.5 % (0.0-11.0) Eosinophils % 5.4 % (0.0-7.0) Basophils % 0.2 % (0.0-2.0) Nucleated Red Blood Cells % 0.0 /100WBC (0.0-0.0) Immature Granulocytes # 0.030 10^3/ul (0.0-0.031) Neutrophils # 2.3 10^3/ul (1.6-7.5) Lymphocytes # 1.3 10^3/ul (0.8-2.9) Monocytes # 0.8 10^3/ul (0.3-0.9) Eosinophils # 0.3 10^3/ul (0.0-0.5) Basophils # 0.0 10^3/ul (0.0-0.1) Nucleated Red Blood Cells # 0.0 10^3/ul (0.0-0.0) Sodium Level 138 mmol/L (135-144) Potassium Level 5.1 mmol/L (3.5-5.1) Chloride Level 103 mmol/L (97-110) Carbon Dioxide Level 24 mmol/L (21-31) Anion Gap 11 (5-13) Blood Urea Nitrogen 31 mg/dl (7-20) Creatinine 1.75 mg/dl (0.61-1.24) Est Glomerular Filtrat Rate mL/min mL/min (>60) Glucose Level 92 mg/dl (70-220) Calcium Level 9.8 mg/dl (8.4-10.2) ERLIN MILLER Nov 22, 2018 12:05
--- NOTE | 2018-11-22 13:48 | CONS ---
Assessment/Plan Assessment/Plan Hospital Course (Demo Recall) IMPRESSION: 1. Heart block, episodes of 2:1 block with heart rates down to the high 30s and 40s. Status procedure on beta elsa, stable blood pressure.- ? due to anesthesia/No recurrence since BB stopped 2. Hypertension, under well controlled on a beta elsa at this time. 3. Abnormal echocardiogram with inferior Q-waves, but no evidence of significant conduction system disease. 4. Gastrointestinal bleed, status post endoscopy today. 5. Syncope, likely related to the patient's GI bleed but must rule out associated syncope due to arrhythmia, heart block. 6. Anemia, status post transfusions. 7. Renal failure, renal insufficiency. 8. Cough Recc: -Tele -Continue to follow BP off of antihypertenisves at this time -Continue PPI -ambulation/PT -Continue cough suppressant for symptomatic relief -Follow caustic loader/volume status clsoely D/C planning Consultation Date/Type/Reason Admit Date/Time Nov 09, 2018 at 13:16 Initial Consult Date 11/13/18 Type of Consult Cardiology Reason for Consultation Heart Block Requesting Provider: IVONE LEON MD Date/Time of Note DATE: 11/22/18 TIME: 13:46 Exam/Review of Systems Vital Signs Vitals Vital Signs Date Temp Pulse Resp B/P (MAP) Pulse Ox O2 O2 Flow FiO2 Time Delivery Rate 11/22/18 97.8 71 22 123/70 96 Room Air 11:56 (87) 11/20/18 2.0 07:57 Intake and Output 11/21/18 11/21/18 11/22/18 1515:00 23:00 07:00 IntakeIntake Total 300 ml 250 ml OutputOutput Total 800 ml 450 ml BalanceBalance -500 ml -200 ml Exam Exam Review of Systems: CONSTITUTIONAL: No fevers, chills. PULMONARY: No sob CARDIOVASCULAR: No chest pain/palpitations GASTROINTESTINAL: No nausea/vomiting. GENITOURINARY: No hematuria/dysuria. MUSCULOSKELETAL: No myagias/arthalgias. PSYCHIATRIC: The patient denies depression. NEUROLOGIC: No weakness Constitutional: alert Psych: no complaints Head: normocephalic ENMT: mucosa pink and moist Neck: supple, jvd (9 cm water) Respiratory: diminished breath sounds Cardiovascular: regular rate and rhythm Gastrointestinal: soft, non-tender Musculoskeletal: muscle tone (normal) Extremities: edema (none) Neurological: other (NO focal deficits) Labs Result Diagram: 11/22/18 0545 11/22/18 0545 Results 24hrs Laboratory Tests Test 11/22/18 05:45 White Blood Count 4.6 L Red Blood Count 3.47 L Hemoglobin 10.3 L Hematocrit 31.3 L Mean Corpuscular Volume 90.2 Mean Corpuscular Hemoglobin 29.7 Mean Corpuscular Hemoglobin Concent 32.9 Red Cell Distribution Width 13.7 Platelet Count 344 Mean Platelet Volume 9.0 Immature Granulocytes % 0.600 H Neutrophils % 49.0 Lymphocytes % 27.3 Monocytes % 17.5 H Eosinophils % 5.4 Basophils % 0.2 Nucleated Red Blood Cells % 0.0 Immature Granulocytes # 0.030 Neutrophils # 2.3 Lymphocytes # 1.3 Monocytes # 0.8 Eosinophils # 0.3 Basophils # 0.0 Nucleated Red Blood Cells # 0.0 Sodium Level 138 Potassium Level 5.1 Chloride Level 103 Carbon Dioxide Level 24 Anion Gap 11 Blood Urea Nitrogen 31 H Creatinine 1.75 H Est Glomerular Filtrat Rate mL/min Glucose Level 92 Calcium Level 9.8 Medications Medications Current Medications Ondansetron HCl (Zofran Inj) 4 mg Q6H PRN IV NAUSEA AND/OR VOMITING; Start 11/09/18 at 19:30 Lorazepam (Ativan) 0.5 mg Q6H PRN IV AGITATION Last administered on 11/09/18at 23:14; Admin Dose 0.5 MG; Start 11/09/18 at 19:30 Trazodone HCl (Desyrel) 100 mg HS PO Last administered on 11/20/18at 21:05; Admin Dose 100 MG; Start 11/10/18 at 21:00 Hydralazine HCl (Apresoline) 10 mg Q4H PRN IV SBP>170; Start 11/12/18 at 18:30 Morphine Sulfate (morphine) 6 mg Q4H PRN PO SEVERE PAIN LEVEL 7-10 Last administered on 11/20/18at 21:06; Admin Dose 6 MG; Start 11/13/18 at 22:00 Paroxetine HCl (Paxil) 20 mg DAILY PO Last administered on 11/22/18at 08:12; Admin Dose 20 MG; Start 11/16/18 at 09:00 Acetaminophen (Tylenol Tab) 500 mg Q6H PRN PO MILD PAIN(1-3)OR ELEVATED TEMP Last administered on 11/17/18at 23:57; Admin Dose 500 MG; Start 11/17/18 at 18:00 Guaifenesin/ Dextromethorphan (Robitussin Dm Liquid Cup) 10 ml Q4H PRN PO cough Last administered on 11/20/18at 21:06; Admin Dose 10 ML; Start 11/18/18 at 12:00 Docusate Sodium (Colace) 100 mg BID PRN PO CONSTIPATION Last administered on 11/20/18at 21:05; Admin Dose 100 MG; Start 11/18/18 at 12:00 Pantoprazole (Protonix Tab) 40 mg BID PO Last administered on 11/22/18at 08:12; Admin Dose 40 MG; Start 11/19/18 at 21:00 TATYANA LEGER Nov 22, 2018 13:48
[2018-11-22 15:57] VITALS: BP 116/66; PULSE 80; RESP 22
--- NOTE | 2018-11-23 13:54 | RADRPT ---
Vent Rate: 67 bpm RR Interval: 0 msec [place] Interval: 174 msec QRS Duration: 92 msec QT Interval: 382 msec QTC Interval: 403 msec P-R-T Daphne: 31 - 36 - 45 degrees Normal sinus rhythm Normal ECG Electronically Signed By: Chalino Lazaro
== END 2018-11-22 18:27 | DRG 378 ==
LOC: E/R 10:14 → 6WM 13:16
PROVIDERS: ADMIT Internal Medicine; ATTEND Internal Medicine
PROC: 30233N1 Transfusion of Nonautologous Red Blood Cells into Peripheral Vein, Percutaneous Approach (ICD-10-PCS; 2018-11-10)
PROC: 0W3P8ZZ Control Bleeding in Gastrointestinal Tract, Via Natural or Artificial Opening Endoscopic (ICD-10-PCS; principal; 2018-11-10 14:00)
PROC: 0DB68ZX Excision of Stomach, Via Natural or Artificial Opening Endoscopic, Diagnostic (ICD-10-PCS; 2018-11-10 14:00)
PROC: 0DJD8ZZ Inspection of Lower Intestinal Tract, Via Natural or Artificial Opening Endoscopic (ICD-10-PCS; 2018-11-12)
DX: K26.4 Chronic or unspecified duodenal ulcer with hemorrhage (principal); N17.9 Acute kidney failure, unspecified; D62 Acute posthemorrhagic anemia; R45.851 Suicidal ideations; F33.2 Major depressive disorder, recurrent severe without psychotic features; I12.9 Hypertensive chronic kidney disease with stage 1 through stage 4 chronic kidney disease, or unspecified chronic kidney disease; N18.3 Chronic kidney disease, stage 3 (moderate); I44.1 Atrioventricular block, second degree; K64.9 Unspecified hemorrhoids; F41.9 Anxiety disorder, unspecified; G89.29 Other chronic pain; M54.5 Low back pain; M54.10 Radiculopathy, site unspecified; R00.1 Bradycardia, unspecified
CPT/HCPCS: 36415; 36430; 70450; 71045; 72040; 80048; 80053; 80061; 81003; 82150; 82550; 82553; 83690; 84443; 84484; 85014; 85018; 85025; 85610; 85730; 86850; 86900; 86901; 86920; 87081; 88305; 88312; 93005; 93306; 97116; 97162; 97530; C9113; J0131; J2060; J2270; J3010; J7030; J7042; P9016